=== PATIENT | male | born 1955 | race Caucasian/White ===

== ENCOUNTER 2023-10-16 17:03 | Inpatient (IN) ==
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
[2023-10-16] MEDS: ALBUT/IPRATROP 3MG/0.5MG NEB 3 ML VIAL NEB STA (18:21)
[2023-10-16] MEDS: ACETAMINOPHEN 1,000 MG/100 ML VIAL IV STA (18:21)
[2023-10-16 18:26] LABS: Basophils # (auto) 0.03 K/uL (0.00-0.20); Basophils % (auto) 0.3 %; Eosinophils # (auto) 0.07 K/uL (0.00-0.50); Eosinophils % (auto) 0.7 %; Hematocrit (blood only) 27.3 % (42.0-52.0); Hemoglobin 8.1 g/dl (14.0-18.0); Immature Granulocytes # (auto) 0.03 K/uL (0.01-0.20); Immature Granulocytes % (auto) 0.3 %; Lymphocytes # (auto) 2.26 K/uL (1.20-3.40); Lymphocytes % (auto) 23.9 %; Mean Corpuscular Hemoglobin 29.1 pg (25.0-34.0); Mean Corpuscular Hgb Conc 29.7 g/dL (32.0-36.0); Mean Corpuscular Volume 98.2 fL (80.0-100.0); Mean Platelet Volume 10.3 fL (9.4-12.4); Monocytes # (auto) 0.79 K/uL (0.11-0.59); Monocytes % (auto) 8.4 %; Neutrophils # (auto) 6.26 K/uL (1.40-6.50); Neutrophils % (auto) 66.4 %; Platelet Count 201 K/uL (130-400); RDW Coefficient of Variation 13.2 % (11.5-14.5); RDW Standard Deviation 47.1 fL (36.4-46.3); Red Blood Count 2.78 M/uL (4.70-6.10); White Blood Count 9.44 K/ul (4.8-10.8)
[2023-10-16 18:52] LABS: Appearance Urine Clear (Clear); Bacteria Urine Automated None Seen (None Seen); Bilirubin Urine Negative (Negative); Blood Urine Negative (Negative); Calcium Oxalate Crystals Urine Present (None Prsent); Color Urine Yellow; Epithelial Cell Urine Auto 0-2 /hpf (0-2); Glucose Urine UA Negative (Negative); Ketones Urine Trace (Negative); Leukocyte Esterase Urine Trace (Negative); Mucus Urine Present (None Prsent); Nitrite Urine Negative (Negative); Protein Urine 1+ (Negative); Urobilinogen Urine Negative (Negative); WBC Urine Automated 0-5 /hpf (0-5); pH Urine >= 9.0 (4.5-7.5)
[2023-10-16 18:57] LABS: Albumin Globulin Ratio 1.4 (0.9-2); Albumin Level 3.9 gm/dl (3.4-5.0); Bilirubin,Total 0.4 mg/dl (0.2-1.0); Calcium 9.8 mg/dl (8.6-10.3); Creatinine Clr Calc Pharmacy 68.3 ml/min; Est GFR (African American) 90.5 ml/min; Est GFR (Non-African American) 78.1 ml/min; Globulin 2.7 gm/dl (2.5-4.0); Potassium 4.4 mmol/L (3.5-5.1); Total Protein 6.6 gm/dl (6.0-8.3); Troponin I High Sensitivity 190.2 pg/ml (0-20)
[2023-10-16 18:59] LABS: Prothrombin Time 10.9 Seconds (9.0-12.0)
[2023-10-16 19:26] LABS: Adenovirus PCR Not Detected (NotDetected); Bordetella parapertussis PCR Not Detected (NotDetected); Bordetella pertussis PCR Not Detected (NotDetected); Chlamydia pneumoniae PCR Not Detected (NotDetected); Coronavirus 229E PCR Not Detected (NotDetected); Coronavirus CoV-2 (COVID19)PCR Not Detected (NotDetected); Coronavirus HKU1 PCR Not Detected (NotDetected); Coronavirus NL63 PCR Not Detected (NotDetected); Coronavirus OC43PCR Not Detected (NotDetected); Human Metapneumovirus PCR Not Detected (NotDetected); Influenza A PCR Not Detected (NotDetected); Influenza B PCR Not Detected (NotDetected); Mycoplasma pneumoniae PCR Not Detected (NotDetected); Parainfluenza Virus 1 PCR Not Detected (NotDetected); Parainfluenza Virus 2 PCR Not Detected (NotDetected); Parainfluenza Virus 3 PCR Not Detected (NotDetected); Parainfluenza Virus 4 PCR Not Detected (NotDetected); Respiratory Syncytial VirusPCR Not Detected (NotDetected); Rhinovirus/Enterovirus PCR Not Detected (NotDetected)
--- NOTE | 2023-10-16 19:39 | XRay Report ---
SINGLE VIEW CHEST CLINICAL HISTORY: Dyspnea FINDINGS: 2 AP, portable, upright chest radiographs compare to study dated 05/27/2023. The examination is degraded by portable technique and patient rotation. The heart is enlarged noting atheroscleroti c calcification of the thoracic aorta. Emphysema and chronic interstitial thickening is similar to pr evious. Foci of parenchymal scarring are seen throughout both lungs. Question a nodular opacity at th e right lung base. No airspace consolidation or large pleural effusion is identified. No pneumothorax is seen. The skeletal structures are osteopenic. The bony thorax is grossly intact. IMPRESSION: 1. Cardiomegaly and emphysema with no acute cardiopulmonary abnormality identified. 2. Question a nodular opacity at the right lung base. This may be artifactual. Correlation with a [facility] CT is recommended for further assessment and to exclude underlying pulmonary lesion. ACT 112: Negative or not required by law. Electronically signed by: John Mae M.D. 10/16/2023 7:37 PM
[2023-10-16 19:46] LABS: Base Excess VBG 18.4 mEq/L; HCO3 VBG 48 mmol/L; Oxygen Saturation VBG 60.9 %; PCO2 VBG 79 mmHg (38-50); PO2 VBG 35 mmHg; pH VBG 7.39 (7.36-7.41)
[2023-10-16] MEDS: methylPREDNISolone 125 MG/2 ML VIAL IV STA (20:04)
[2023-10-16] MEDS: ASPIRIN CHEW 324 MG PO STA (20:06)
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
[2023-10-16] MEDS: AZITHROMYCIN 500 MG in DEXTROSE 5% 250 ML IV ONE (21:56)
[2023-10-16] MEDS: Patient's ALLERGY Info needs ENTERED STA (22:00)
[2023-10-16] MEDS: Patient's ALLERGY Info needs ENTERED SCH (22:01)
[2023-10-16] MEDS ORDERED: ACETAMINOPHEN 325 MG TAB PO PRN (22:25)
[2023-10-16] MEDS ORDERED: ONDANSETRON INJ 2 MG/ML 2 ML VIAL IV PRN (22:25)
[2023-10-16] MEDS: guaiFENesin 600 MG TABCR PO SCH (22:44)
[2023-10-16] MEDS: ENOXAPARIN INJ 40 MG/0.4 ML SYR SQ SCH (23:04)
--- NOTE | 2023-10-16 23:57 | CT Scan Report ---
Exam(s): CT CHEST Without Contrast EXAM: CT Chest Without Intravenous Contrast CLINICAL HISTORY: Reason for exam: right lower lobe pathology on CXR. TECHNIQUE: Axial computed tomography images of the chest without intravenous contrast. CTDI is 11.8 mGy and DLP is 438.65 mGy-cm. Automated exposure control was utilized for the study. A dose lowering technique was utilized adhering to the principles of ALARA. COMPARISON: No relevant prior studies available. FINDINGS: Lungs: Mass in the RIGHT lower lobe measures 3 cm. PET/CT scan recommended for further evaluation. Patchy infiltrates in the bilateral upper lobes, concerning for pneumonia. Pleural space: Unremarkable. No pneumothorax. No significant effusion. Heart: Unremarkable. No cardiomegaly. No significant pericardial effusion. No significant coronary artery calcifications. Bones/joints: Degenerative changes of the spine. No acute fracture. No dislocation. Soft tissues: Unremarkable. Vasculature: Atherosclerotic changes of the aorta. No thoracic aortic aneurysm. Lymph nodes: Unremarkable. No enlarged lymph nodes. Kidneys and ureters: Multiple renal cysts. IMPRESSION: 1. Mass in the RIGHT lower lobe measures 3 cm. PET/CT scan recommended for further evaluation. Lung cancer not excluded. 2. Patchy infiltrates in the bilateral upper lobes, concerning for pneumonia. Electronically signed by: Simeon Mendieta MD 10/16/23 23:56 PM
[2023-10-17] MEDS: CEFEPIME 2,000 MG in SYRINGE 0 ML IV SCH (01:20)
[2023-10-17] MEDS: CEFEPIME 2,000 MG/20 ML VIAL ONE (01:21)
[2023-10-17] MEDS ORDERED: methylPREDNISolone 1000 MG/16 ML IV SCH (04:00)
[2023-10-17] MEDS: methylPREDNISolone 125 MG/2 ML VIAL ONE (04:45)
[2023-10-17] MEDS: methylPREDNISolone 40 MG in SYRINGE 0 ML IV SCH (05:38)
[2023-10-17 06:15] LABS: Basophils # (auto) 0.01 K/uL (0.00-0.20); Basophils % (auto) 0.1 %; Hematocrit (blood only) 27.9 % (42.0-52.0); Hemoglobin 8.5 g/dl (14.0-18.0); Immature Granulocytes # (auto) 0.04 K/uL (0.01-0.20); Immature Granulocytes % (auto) 0.6 %; Lymphocytes # (auto) 0.95 K/uL (1.20-3.40); Lymphocytes % (auto) 13.2 %; Mean Corpuscular Hemoglobin 29.7 pg (25.0-34.0); Mean Corpuscular Hgb Conc 30.5 g/dL (32.0-36.0); Mean Corpuscular Volume 97.6 fL (80.0-100.0); Mean Platelet Volume 11.1 fL (9.4-12.4); Monocytes # (auto) 0.04 K/uL (0.11-0.59); Monocytes % (auto) 0.6 %; Neutrophils # (auto) 6.14 K/uL (1.40-6.50); Neutrophils % (auto) 85.5 %; Platelet Count 221 K/uL (130-400); RDW Standard Deviation 46.3 fL (36.4-46.3); Red Blood Count 2.86 M/uL (4.70-6.10); White Blood Count 7.18 K/ul (4.8-10.8)
[2023-10-17 06:45] LABS: Albumin Globulin Ratio 1.4 (0.9-2); Albumin Level 3.8 gm/dl (3.4-5.0); BUN Creatinine Ratio 21.1 (10-20); Bilirubin,Total 0.4 mg/dl (0.2-1.0); Calcium 9.4 mg/dl (8.6-10.3); Creatinine Clr Calc Pharmacy 75.9 ml/min; Est GFR (African American) 102.8 ml/min; Est GFR (Non-African American) 88.7 ml/min; Globulin 2.8 gm/dl (2.5-4.0); Potassium 4.8 mmol/L (3.5-5.1); Total Protein 6.6 gm/dl (6.0-8.3); Troponin I High Sensitivity 106.8 pg/ml (0-20)
[2023-10-17] MEDS: ALBUT/IPRATROP 3MG/0.5MG NEB 3 ML VIAL NEB SCH (07:01)
--- NOTE | 2023-10-17 07:41 | Electrocardiogram Report ---
Test Reason : Blood Pressure : */* mmHG Vent. Rate : 78 BPM Atrial Rate : 78 BPM P-R Int : 156 ms QRS Dur : 92 ms QT Int : 356 ms P-R-T Axes : 68 93 54 degrees QTcB Int : 405 ms Sinus rhythm with marked sinus arrhythmia Rightward axis Borderline ECG When compared with ECG of 27-May-2023 22:26, No significant change was found Confirmed by Rey Bales ([id number]) on 10/17/2023 7:41:17 AM Referred By: REFERRED SELF Confirmed By: Rey Bales
[2023-10-17] MEDS: NICOTINE 21 MG/24 HR TDSY TD SCH (08:40)
[2023-10-17] MEDS: ATORVASTATIN 10 MG TAB PO SCH (08:42)
[2023-10-17] MEDS: busPIRone 15 MG TAB PO SCH (08:43)
--- NOTE | 2023-10-17 09:00 | Hospitalist Progress Note ---
Date of Service October 17, 2023 Assessment & Plan (1) Acute on chronic respiratory failure with hypoxia and hypercapnia: (2) Acute exacerbation of chronic obstructive pulmonary disease: (3) Right lower lobe lung mass: (4) Non-ST elevation [place] (NSTEMI): (5) Tobacco abuse: (6) Hyperlipidemia: (7) Bipolar disorder: (8) Dependence on supplemental oxygen: (9) Depression with anxiety: (10) Bilateral pneumonia: Plan #Acute on chronic respiratory failure with hypoxia #COPD exacerbation #bilateral upper lobe pneumonia - Given methylprednisolone 80 mg IV in the ED, currently on Methylprednisolone 40 mg IV every 8 hours - Duonebs every 4 hours while awake and every 2 hours when necessary, breo ordered - Cefepime 2 g IV every 12 hours, Azithromycin 500 mg IV every 24 hours - Guaifenesin extended release 1200 mg p.o. twice daily - Nasal cannula oxygen, titrate to keep pulse ox around 90%. Patient with baseline 4 L requirement - MRSA swab #Right lower lobe lung mass 3 cm- - Primary consideration is primary lung adenocarcinoma - Radiology recommends PET/CT scan for further evaluation - Consult oncology #NSTEMI - The patient will be admitted to telemetry for serial cardiac enzymes, serial EKG's, cardiac rhythm monitoring and a 2-D echocardiogram with Dopplers. - Troponin 190.2 with follow-up 165.3, then 145.0 - Likely type II supply/demand mismatch #Bipolar disorder #anxiety with depression- - Continue BuSpar, lorazepam and quetiapine Admission and Anticipated Discharge Date Admission Date: October 16, 2023 Subjective No acute events overnight Currently states that he is feeling better. He still has respiratory distress, but states it is improving Review of Systems Review of Systems: comprehensive ROS completed Physical Exam Physical Exam: Gen: in bed, no acute distress HEENT: NC/AT, MMM CVS: s1s2 nl, RRR Lungs: mild - mod respiratory distress, expiratory wheezing Abd: soft, NT, nl BS Ext: no edema Psych: pleasant, communicating appropriately Results & Data Results & Data Vital Signs (Past 12 Hours) Vital Signs Temp Pulse Pulse Resp BP BP Pulse Ox 10/17/23 08:52 10/17/23 08:03 78 15 10/17/23 07:30 70 15 100 10/17/23 07:03 80 10/17/23 07:01 75 22 94 10/17/23 07:00 77 16 90 10/17/23 06:36 74 19 100 10/17/23 06:36 124/59 L 10/17/23 06:36 78 20 124/58 L 100 10/17/23 06:03 70 23 100 10/17/23 06:00 138/112 H 10/17/23 05:54 78 33 H 100 10/17/23 05:42 75 12 82 L 10/17/23 05:30 74 19 98 10/17/23 05:24 68 13 97 10/17/23 05:18 68 14 97 10/17/23 05:00 69 14 100 10/17/23 05:00 142/62 H 10/17/23 05:00 142/62 H 10/17/23 05:00 142/62 H 10/17/23 05:00 142/62 H 10/17/23 04:51 65 18 93 10/17/23 04:21 77 22 98 10/17/23 04:03 75 14 100 10/17/23 04:00 129/41 L 10/17/23 04:00 129/41 L 10/17/23 03:51 77 21 97 10/17/23 03:48 70 24 99 10/17/23 03:30 70 17 98 10/17/23 03:27 74 24 99 10/17/23 03:01 137/36 L 10/17/23 03:01 137/36 L 10/17/23 03:01 137/36 L 10/17/23 03:01 137/36 L 10/17/23 03:00 75 21 94 10/17/23 02:51 70 15 98 10/17/23 02:47 72 17 142/85 H 100 10/17/23 02:45 10/17/23 02:45 37.1 C 70 142/85 H 99 10/16/23 23:51 72 20 97 10/16/23 23:20 71 10/16/23 22:25 10/16/23 22:00 70 22 127/64 95 10/16/23 21:22 77 Pulse Ox O2 Del Method O2 Del Method O2 Flow Rate O2 Flow Rate 10/17/23 08:52 Nasal Cannula 2 10/17/23 08:03 10/17/23 07:30 10/17/23 07:03 10/17/23 07:01 Nasal Cannula 4 10/17/23 07:00 10/17/23 06:36 10/17/23 06:36 10/17/23 06:36 Nasal Cannula 4 10/17/23 06:03 10/17/23 06:00 10/17/23 05:54 10/17/23 05:42 10/17/23 05:30 10/17/23 05:24 10/17/23 05:18 10/17/23 05:00 10/17/23 05:00 10/17/23 05:00 10/17/23 05:00 10/17/23 05:00 10/17/23 04:51 10/17/23 04:21 10/17/23 04:03 10/17/23 04:00 10/17/23 04:00 10/17/23 03:51 10/17/23 03:48 10/17/23 03:30 10/17/23 03:27 10/17/23 03:01 10/17/23 03:01 10/17/23 03:01 10/17/23 03:01 10/17/23 03:00 10/17/23 02:51 10/17/23 02:47 Nasal Cannula 4 10/17/23 02:45 Nasal Cannula 4 10/17/23 02:45 Nasal Cannula 4 10/16/23 23:51 10/16/23 23:20 10/16/23 22:25 94 Nasal Cannula 4 10/16/23 22:00 Nasal Cannula 4 10/16/23 21:22 PG Care Time/CCT Total # of Minutes Spent Total Time Spent with Patient: Total time spent is greater than 50% in coordination of care (as documented) at patient's floor/unit and/or counseling patient: Coding Level of Care Code 27114 SUB INP/OBS CARE 2/35MIN Diagnoses Acute on chronic respiratory failure with hypoxia and hypercapnia J96.21; J96.22 Acute exacerbation of chronic obstructive pulmonary disease J44.1 Right lower lobe lung mass R91.8 Non-ST elevation [place] (NSTEMI) I21.4 Tobacco abuse Z72.0 Hyperlipidemia E78.5 Bipolar disorder F31.9 Dependence on supplemental oxygen Z99.81 Depression with anxiety F41.8 Bilateral pneumonia J18.9
--- NOTE | 2023-10-17 09:10 | XCELERA ---
[id number]
[2023-10-17] MEDS: FLUTICASONE/VILANTEROL 100/25MCG 14 PUFFS/INHALER INH SCH (13:24)
[2023-10-17] MEDS: LORazepam 0.5 MG TAB PO PRN (13:27)
[2023-10-17] MEDS: QUEtiapine FUMARATE 200 MG TAB PO SCH (21:11)
[2023-10-17] MEDS: AZITHROMYCIN 500 MG in DEXTROSE 5% 250 ML IV SCH (21:12)
[2023-10-17] MEDS: QUEtiapine FUMARATE 100 MG TABLET PO SCH (22:53)
[2023-10-17] MEDS ORDERED: ALBUT/IPRATROP 3MG/0.5MG NEB 3 ML VIAL NEB PRN (23:12)
[2023-10-18 04:58] LABS: Hematocrit (blood only) 25.4 % (42.0-52.0); Hemoglobin 8.1 g/dl (14.0-18.0); Immature Granulocytes # (auto) 0.02 K/uL (0.01-0.20); Immature Granulocytes % (auto) 0.3 %; Lymphocytes # (auto) 1.19 K/uL (1.20-3.40); Lymphocytes % (auto) 16.8 %; Mean Corpuscular Hemoglobin 29.9 pg (25.0-34.0); Mean Corpuscular Hgb Conc 31.9 g/dL (32.0-36.0); Mean Corpuscular Volume 93.7 fL (80.0-100.0); Mean Platelet Volume 10.8 fL (9.4-12.4); Monocytes # (auto) 0.27 K/uL (0.11-0.59); Monocytes % (auto) 3.8 %; Neutrophils # (auto) 5.59 K/uL (1.40-6.50); Neutrophils % (auto) 79.1 %; Platelet Count 205 K/uL (130-400); RDW Coefficient of Variation 13.2 % (11.5-14.5); RDW Standard Deviation 44.8 fL (36.4-46.3); Red Blood Count 2.71 M/uL (4.70-6.10); White Blood Count 7.07 K/ul (4.8-10.8)
[2023-10-18 05:18] LABS: Albumin Globulin Ratio 1.4 (0.9-2); Albumin Level 3.6 gm/dl (3.4-5.0); BUN Creatinine Ratio 37.8 (10-20); Bilirubin,Total 0.3 mg/dl (0.2-1.0); Calcium 9.3 mg/dl (8.6-10.3); Creatinine Clr Calc Pharmacy 92.3 ml/min; Est GFR (African American) 111.4 ml/min; Est GFR (Non-African American) 96.1 ml/min; Globulin 2.5 gm/dl (2.5-4.0); Magnesium 2.1 mg/dl (1.7-2.4); Potassium 4.3 mmol/L (3.5-5.1); Total Protein 6.1 gm/dl (6.0-8.3)
--- NOTE | 2023-10-18 07:17 | Hospitalist Progress Note ---
Date of Service October 18, 2023 Assessment & Plan (1) Acute on chronic respiratory failure with hypoxia and hypercapnia: (2) Acute exacerbation of chronic obstructive pulmonary disease: (3) Right lower lobe lung mass: (4) Non-ST elevation [place] (NSTEMI): (5) Tobacco abuse: (6) Hyperlipidemia: (7) Bipolar disorder: (8) Dependence on supplemental oxygen: (9) Depression with anxiety: (10) Bilateral pneumonia: Plan #Acute on chronic respiratory failure with hypoxia #COPD exacerbation #bilateral upper lobe pneumonia - Given methylprednisolone 80 mg IV in the ED, currently on Methylprednisolone 40 mg IV every 8 hours, cont at this time - Duonebs every 4 hours while awake and every 2 hours when necessary, breo ordered - Cefepime 2 g IV every 8 hours, Azithromycin 500 mg IV every 24 hours, Day 3 - Guaifenesin extended release 1200 mg p.o. twice daily - Nasal cannula oxygen, titrate to keep pulse ox around 90%. Patient with baseline 4 L requirement - MRSA negative #Right lower lobe lung mass 3 cm- - Primary consideration is primary lung adenocarcinoma - Radiology recommends PET/CT scan for further evaluation - Consult oncology #NSTEMI - The patient will be admitted to telemetry for serial cardiac enzymes, serial EKG's, cardiac rhythm monitoring - Troponin 190.2 with follow-up 165.3, then 145.0 - ECHO showing nl LV size, mild concentric LV hypertrophy, EF: 55-60%, grade I DD - Likely type II supply/demand mismatch #Bipolar disorder #anxiety with depression- - Continue BuSpar, lorazepam and quetiapine #Overgrown toenails - podiatry consulted #Poor access to care - per report, pt has difficulty getting to appointments as outpatient. Bedside RN initiated CM support to set up outpatient support for patient. [facility] #DVT ppx: lovenox Admission and Anticipated Discharge Date Admission Date: October 16, 2023 Subjective No acute events overnight Looks much improved today compared to yesterday though still has some conversational dyspnea and pursed lip breathing Review of Systems Review of Systems: comprehensive ROS completed Physical Exam Physical Exam: Gen: in bed, no acute distress HEENT: NC/AT, MMM CVS: s1s2 nl, RRR Lungs: mild respiratory distress, diminished breath sounds, scattered expiratory wheezing (improved from yesterday) Abd: soft, NT, nl BS Ext: no edema, overgrown toenails (few missing currently) Psych: pleasant, communicating appropriately Results & Data Results & Data Vital Signs (Past 12 Hours) Vital Signs Temp Pulse Pulse Resp BP Pulse Ox Pulse Ox 10/18/23 07:10 67 18 100 10/18/23 04:50 37.0 C 77 21 131/34 L 98 10/18/23 00:01 75 10/17/23 23:13 36.7 C 69 21 157/56 H 100 10/17/23 22:25 100 10/17/23 19:46 68 16 95 10/17/23 19:29 10/17/23 19:28 37.3 C 73 22 138/51 L 96 O2 Del Method O2 Del Method O2 Flow Rate O2 Flow Rate 10/18/23 07:10 Nasal Cannula 2 10/18/23 04:50 Nasal Cannula 2 10/18/23 00:01 10/17/23 23:13 Nasal Cannula 4 10/17/23 22:25 Nasal Cannula 4 10/17/23 19:46 Nasal Cannula 2 10/17/23 19:29 Nasal Cannula 2 10/17/23 19:28 Nasal Cannula 2 PG Care Time/CCT Total # of Minutes Spent Total Time Spent with Patient: Total time spent is greater than 50% in coordination of care (as documented) at patient's floor/unit and/or counseling patient: Coding Level of Care Code 48866 SUB INP/OBS CARE 2/35MIN Diagnoses Acute on chronic respiratory failure with hypoxia and hypercapnia J96.21; J96.22 Acute exacerbation of chronic obstructive pulmonary disease J44.1 Right lower lobe lung mass R91.8 Non-ST elevation ND (NSTEMI) I21.4 Tobacco abuse Z72.0 Hyperlipidemia E78.5 Bipolar disorder F31.9 Dependence on supplemental oxygen Z99.81 Depression with anxiety F41.8 Bilateral pneumonia J18.9
--- NOTE | 2023-10-18 07:19 | Oncology Consultation ---
Date of Consultation October 18, 2023 Assessment & Plan (1) Right lower lobe lung mass: Had a lengthy discussion with the patient, discussed the possible etiologies behind his lung mass. My first recommendation would be a biopsy of this mass which could be done endobronchially. Keeping this in mind I request pulmonary referral for bronchoscopy and endobronchial biopsy. Once we have the results of the endobronchial biopsy we will understand the etiology behind this diagnosis and the potential treatment recommendations. PET scan can be ordered on an outpatient basis. I recommend biopsy which can be done endobronchially. Plan Thank you for this interesting oncological consult. A total of 60 minutes were spent counseling, coordination of care and review of prior records. History of Present Illness Reason for Consultation: Lung mass Attending Physician: Michell Brian MD History of Present Illness the patient is a very pleasant 68-year-old man who came to [facility] on 10/16/2023 with sudden onset shortness of breath and dyspnea on exertion. He has a history of COPD and is on 4 L oxygen. After he came to the emergency department he had a CT scan of the chest on 10/16/2023 which revealed mass in the right lower lobe measuring 3 cm. There were patchy infiltrates in bilateral upper lobes. medical oncology has been consulted to assist in management of this patient with right lower lobe mass. During my examination the patient was in the ICU bed, he was lying comfortably and he was on oxygen. No new symptoms at this point. No fever or chills. No nausea vomiting. Allergies Allergy/AdvReac Type Severity Reaction Status Date / Time No Known Allergies Allergy Verified 10/16/23 21:32 Home Medications Medication Instructions Recorded Confirmed Type albuterol sulfate 90 mcg/actuation 2 puff inhalation Q6H PRN 06/19/21 10/16/23 History aerosol inhaler Shortness Of Breath Or Wheezing quetiapine 400 mg tablet 200 mg PO HS 06/19/21 10/16/23 History albuterol sulfate 2.5 mg/3 mL 2.5 mg inhalation QID PRN 05/27/23 10/16/23 History (0.083 %) solution for nebulization Shortness Of Breath Or Wheezing atorvastatin 10 mg tablet (Lipitor) 10 mg PO DAILY 05/27/23 10/16/23 History buspirone 15 mg tablet 15 mg PO BID 05/27/23 10/16/23 History fluticasone 500 mcg-salmeterol 50 1 inh inhalation BID 05/27/23 10/16/23 History mcg/dose blistr powdr for inhalation (Advair Diskus) lanolin alcohols-mineral 1 applic topical BID PRN Dry Skin 05/27/23 10/16/23 History oil-w.petrolatum-ceresin topical cream (Eucerin topical cream) lorazepam 0.5 mg tablet 0.5 mg PO BID PRN Anxiety 05/27/23 10/16/23 History tiotropium bromide 2.5 2 puff inhalation DAILY 05/27/23 10/16/23 History mcg/actuation mist for inhalation (Spiriva Respimat) Patient History Medical History Vitamin D deficiency Ventricular premature depolarization Unspecified mood [affective] disorder Nicotine dependence Insomnia Emphysema lung Dependence on supplemental oxygen Anxiety Social History Smoking Status: Current every day smoker Tobacco Type: Cigarettes Hx Alcohol Use: No Hx Substance Use: No Preferred Language: Grenadian Communication Ability: Effective Supervisor Production Required: No Beliefs That Will Affect Care: None Current Living Situation: Alone Current Living Situation Comment: Lives at [facility] Feels Safe at Home: Yes Assistive Devices: Cane, Oxygen - Continuous and Walker Review of Systems Review of Systems: All systems reviewed & are unremarkable except as noted in HPI & below Constitutional: as per Subjective / HPI Eyes: as per Subjective / HPI Ear, Nose, Mouth, Throat: as per Subjective / HPI Respiratory: as per Subjective / HPI Cardiovascular: as per Subjective / HPI Gastrointestinal: as per Subjective / HPI Genitourinary: + as per Subjective / HPI Musculoskeletal: as per Subjective / HPI Integumentary: as per Subjective / HPI Neurologic: as per Subjective / HPI Psychiatric: as per Subjective / HPI Endocrine: as per Subjective / HPI Physical Exam Constitutional: WD/WN, vitals as above Eyes: PERRL, conjunctivae normal, anicteric sclerae ENMT: external ear and nose normal, oropharynx normal Neck: trachea midline, no thyromegaly Respiratory: normal respiratory effort, lungs clear to auscultation Cardiovascular: RRR, no murmur, no edema Gastrointestinal (Abdomen): normal bowel sounds, soft, nontender, no hepatosplenomegaly Musculoskeletal: no cyanosis or clubbing, extremities motor strength 5/5 Skin: no rashes, warm and dry Neurologic: patellar DTR's 2+ bilat, sensation intact Psychiatric: A+Ox3, euthymic affect Genitourinary: no testicular masses, no penis abnormality Lymphatic: no cervical or axillary lymphadenopathy Results & Data Vital Signs (Past 12 Hours) Vital Signs Temp Pulse Pulse Resp BP Pulse Ox Pulse Ox 10/18/23 07:10 67 18 100 10/18/23 04:50 37.0 C 77 21 131/34 L 98 10/18/23 00:01 75 10/17/23 23:13 36.7 C 69 21 157/56 H 100 10/17/23 22:25 100 10/17/23 19:46 68 16 95 10/17/23 19:29 10/17/23 19:28 37.3 C 73 22 138/51 L 96 O2 Del Method O2 Del Method O2 Flow Rate O2 Flow Rate 10/18/23 07:10 Nasal Cannula 2 10/18/23 04:50 Nasal Cannula 2 10/18/23 00:01 10/17/23 23:13 Nasal Cannula 4 10/17/23 22:25 Nasal Cannula 4 10/17/23 19:46 Nasal Cannula 2 10/17/23 19:29 Nasal Cannula 2 10/17/23 19:28 Nasal Cannula 2
--- NOTE | 2023-10-18 07:37 | Electrocardiogram Report ---
Test Reason : Blood Pressure : */* mmHG Vent. Rate : 74 BPM Atrial Rate : 74 BPM P-R Int : 160 ms QRS Dur : 102 ms QT Int : 386 ms P-R-T Axes : 93 93 49 degrees QTcB Int : 428 ms Sinus rhythm with Premature atrial complexes Rightward axis Abnormal ECG When compared with ECG of 16-Oct-2023 17:13, Premature atrial complexes are now Present Confirmed by Rey Bales ([id number] on 10/18/2023 7:37:32 AM Referred By: REFERRED SELF Confirmed By: Rey Bales
[2023-10-18] MEDS: LORazepam 0.5 MG TAB PO STA (22:50)
[2023-10-19 06:44] LABS: Albumin Globulin Ratio 1.4 (0.9-2); Albumin Level 3.6 gm/dl (3.4-5.0); BUN Creatinine Ratio 35.5 (10-20); Bilirubin,Total 0.3 mg/dl (0.2-1.0); Creatinine Clr Calc Pharmacy 72.8 ml/min; Est GFR (African American) 98.8 ml/min; Est GFR (Non-African American) 85.2 ml/min; Globulin 2.6 gm/dl (2.5-4.0); Hematocrit (blood only) 27.2 % (42.0-52.0); Hemoglobin 8.4 g/dl (14.0-18.0); Immature Granulocytes # (auto) 0.03 K/uL (0.01-0.20); Immature Granulocytes % (auto) 0.4 %; Lymphocytes # (auto) 0.81 K/uL (1.20-3.40); Lymphocytes % (auto) 11.2 %; Magnesium 2.3 mg/dl (1.7-2.4); Mean Corpuscular Hemoglobin 29.8 pg (25.0-34.0); Mean Corpuscular Hgb Conc 30.9 g/dL (32.0-36.0); Mean Corpuscular Volume 96.5 fL (80.0-100.0); Mean Platelet Volume 11.3 fL (9.4-12.4); Monocytes # (auto) 0.26 K/uL (0.11-0.59); Monocytes % (auto) 3.6 %; Neutrophils # (auto) 6.15 K/uL (1.40-6.50); Neutrophils % (auto) 84.8 %; Platelet Count 219 K/uL (130-400); Potassium 4.3 mmol/L (3.5-5.1); RDW Coefficient of Variation 13.1 % (11.5-14.5); RDW Standard Deviation 46.3 fL (36.4-46.3); Red Blood Count 2.82 M/uL (4.70-6.10); Total Protein 6.2 gm/dl (6.0-8.3); White Blood Count 7.25 K/ul (4.8-10.8)
--- NOTE | 2023-10-19 15:34 | Hospitalist Progress Note ---
Date of Service October 19, 2023 Assessment & Plan (1) Acute on chronic respiratory failure with hypoxia and hypercapnia: (2) Acute exacerbation of chronic obstructive pulmonary disease: (3) Right lower lobe lung mass: (4) Non-ST elevation [place] (NSTEMI): (5) Tobacco abuse: (6) Hyperlipidemia: (7) Bipolar disorder: (8) Dependence on supplemental oxygen: (9) Depression with anxiety: (10) Bilateral pneumonia: Plan #Acute on chronic respiratory failure with hypoxia #COPD exacerbation #bilateral upper lobe pneumonia - Given methylprednisolone 80 mg IV in the ED, currently on Methylprednisolone 40 mg IV every 8 hours, cont at this time -will transition to daily after receviing 2 doses on 10/18 - Duonebs every 4 hours while awake and every 2 hours when necessary, breo ordered - Cefepime 2 g IV every 8 hours, Azithromycin 500 mg IV every 24 hours, Day 3 - Guaifenesin extended release 1200 mg p.o. twice daily - Nasal cannula oxygen, titrate to keep pulse ox around 90%. Patient with baseline 4 L requirement - MRSA negative #Right lower lobe lung mass 3 cm- - Primary consideration is primary lung adenocarcinoma - Radiology recommends PET/CT scan for further evaluation - Consult oncology: awaiting input from oncology. #NSTEMI - The patient will be admitted to telemetry for serial cardiac enzymes, serial EKG's, cardiac rhythm monitoring - Troponin 190.2 with follow-up 165.3, then 145.0 - ECHO showing nl LV size, mild concentric LV hypertrophy, EF: 55-60%, grade I DD - Likely type II supply/demand mismatch #Bipolar disorder #anxiety with depression- - Continue BuSpar, lorazepam and quetiapine #Overgrown toenails - podiatry consulted #Poor access to care - per report, pt has difficulty getting to appointments as outpatient. Bedside RN initiated CM support to set up outpatient support for patient. [facility] #DVT ppx: lovenox Admission and Anticipated Discharge Date Admission Date: October 16, 2023 Subjective Patient reports he feels close to his baseline. Patient normally takes about 4 liters of oxygen at rest. He states he normally is wheezing. Review of Systems Review of Systems: All systems reviewed & are unremarkable except as noted in HPI & below Physical Exam Physical Exam: Gen: in bed, no acute distress HEENT: NC/AT, MMM CVS: s1s2 nl, RRR Lungs: mild respiratory distress, diminished breath sounds, scattered expiratory wheezing Abd: soft, NT, nl BS Ext: no edema, overgrown toenails (few missing currently) Psych: pleasant, communicating appropriately Results & Data Results & Data Vital Signs (Past 12 Hours) Vital Signs Temp Pulse Pulse Resp BP Pulse Ox O2 Del Method 10/19/23 14:15 72 10/19/23 14:10 76 22 93 Nasal Cannula 10/19/23 11:15 36.6 C 69 20 139/63 95 Nasal Cannula 10/19/23 11:13 64 20 98 Nasal Cannula 10/19/23 07:54 Nasal Cannula 10/19/23 06:59 60 22 100 Nasal Cannula 10/19/23 06:49 36.7 C 66 18 147/64 H 100 Nasal Cannula 10/19/23 03:48 36.5 C 62 16 136/57 L 100 Room Air O2 Flow Rate 10/19/23 14:15 10/19/23 14:10 3 10/19/23 11:15 4 10/19/23 11:13 4 10/19/23 07:54 3 10/19/23 06:59 6 10/19/23 06:49 6 10/19/23 03:48 PG Care Time/CCT Total # of Minutes Spent Total Time Spent with Patient: Total time spent is greater than 50% in coordination of care (as documented) at patient's floor/unit and/or counseling patient: Coding Level of Care Code 01555 SUB INP/OBS CARE 2/35MIN Diagnoses Acute on chronic respiratory failure with hypoxia and hypercapnia J96.21; J96.22 Acute exacerbation of chronic obstructive pulmonary disease J44.1 Right lower lobe lung mass R91.8 Non-ST elevation [place] (NSTEMI) I21.4 Tobacco abuse Z72.0 Hyperlipidemia E78.5 Bipolar disorder F31.9 Dependence on supplemental oxygen Z99.81 Depression with anxiety F41.8 Bilateral pneumonia J18.9
--- NOTE | 2023-10-19 21:39 | Electrocardiogram Report ---
Test Reason : Blood Pressure : */* mmHG Vent. Rate : 66 BPM Atrial Rate : 66 BPM P-R Int : 144 ms QRS Dur : 100 ms QT Int : 396 ms P-R-T Axes : 77 92 51 degrees QTcB Int : 415 ms Sinus rhythm with Premature atrial complexes Rightward axis Borderline ECG When compared with ECG of 18-Oct-2023 04:45, No significant change was found Confirmed by Paul Andersen ([id number]) on 10/19/2023 9:39:19 PM Referred By: REFERRED SELF Confirmed By: Paul Andersen
[2023-10-19] MEDS: METOPROLOL TARTRATE 1 MG/ML VIAL IV STA (23:37)
[2023-10-19] MEDS: METOPROLOL TARTRATE 1 MG/ML VIAL IV ONE (23:48)
[2023-10-20] MEDS: LACTATED RINGER'S 500 ML IV ONE ×2 (00:37→01:50)
--- NOTE | 2023-10-20 03:01 | Communication Note ---
Date of Service: October 20, 2023 Nursing reported patient flipped to A-fib at 1822 and started to get tachycardic in the [id number]. EKG obtained showing A-fib with RVR. Blood pressure 103/54. Did evaluate the patient bedside but he was sleeping comfortably. Given 5 mg of Lopressor with mild rate control. Gave 1 L LR bolus which improved patient's tachycardia, however patient remained in A-fib. This is new onset as previous EKGs did not show any atrial fibrillation. Will switch Lovenox dosing to therapeutic. Will continue to monitor on telemetry overnight. Refer to day team for further workup of new onset atrial fibrillation.
[2023-10-20 07:35] LABS: Hemoglobin 8.6 g/dl (14.0-18.0); Mean Corpuscular Hgb Conc 31.9 g/dL (32.0-36.0); Mean Corpuscular Volume 94.1 fL (80.0-100.0); Mean Platelet Volume 11.2 fL (9.4-12.4); Platelet Count 185 K/uL (130-400); RDW Coefficient of Variation 13.1 % (11.5-14.5); RDW Standard Deviation 45.1 fL (36.4-46.3); Red Blood Count 2.87 M/uL (4.70-6.10); White Blood Count 8.63 K/ul (4.8-10.8)
[2023-10-20 07:52] LABS: BUN Creatinine Ratio 34.5 (10-20); C Reactive Protein 0.62 mg/dl (0-0.5); Calcium 8.5 mg/dl (8.6-10.3); Est GFR (African American) 105.7 ml/min; Est GFR (Non-African American) 91.2 ml/min; Magnesium 2.3 mg/dl (1.7-2.4); Phosphorus 2.5 mg/dl (2.5-4.9); Potassium 4.4 mmol/L (3.5-5.1)
[2023-10-20] MEDS: ENOXAPARIN 80 MG/0.8 ML SYR SQ SCH (09:31)
[2023-10-20] MEDS: methylPREDNISolone 40 MG in SYRINGE 0 ML IV SCH (09:31)
--- NOTE | 2023-10-20 10:45 | Pulmonary Consultation ---
Date of Consultation October 20, 2023 Assessment & Plan (1) Right lower lobe lung mass: (2) Bilateral pneumonia: (3) Acute exacerbation of chronic obstructive pulmonary disease: Plan Pression: 68-year-old male with COPD (severity uncertain as he has not completed PFTs as ordered) as well as findings of a 3 cm right lower lobe lung mass of unclear chronicity. Recommendations: 1. Lung mass: No prior films to document temporal stability. Findings certainly concerning for malignancy given the patient's tobacco history. Recommend proceeding with a PET scan which can only be performed in the outpatient setting. This will identify metabolic active and the primary lesion as well as other potential foci of uptake. Will defer bronchoscopy until the PET scan can be completed. The patient will need case management to assist with follow-up given his history of medical noncompliance and poor generalized health as well as difficulty with follow-up. 2. Given the patient's current pneumonia as well as atrial fibrillation with rapid ventricular response and full anticoagulation, would defer endoscopic procedures this hospitalization. See comments above. 3. Acute exacerbation of COPD: Currently on methylprednisolone. Okay to transition to oral prednisone at 40 mg a day for 5 days. Cefepime can be de- escalated to oral Augmentin and azithromycin can be transitioned to oral. 4. Smoking cessation was recommended to the patient. It is unlikely he will comply. I would be happy to see this patient back in the pulmonary clinic within the next 1 to 2 weeks to review his PET scan. Will arrange for biopsy at that time if appropriate. Thanks for the opportunity participating the care of this patient. Feel free to contact us with questions or concerns. Pulmonary will sign off at this time. History of Present Illness Attending Physician: Franklin Padron History of Present Illness Asked by hospitalist to evaluate this patient with a pulmonary nodule and COPD. History is obtained from discussion with the patient as well as review the electronic medical record. The patient is a 68-year-old male who I evaluated in the pulmonary clinic about 3 to 4 years ago. He was lost to follow-up. He was initially referred due to hypoxemic respiratory failure and COPD. He unfortunately has continued his tobacco habit. Pulmonary function test were ordered but not completed. The patient states that he has been compliant with his Wixela and Spiriva as well as using albuterol on an as-needed basis. He presented to the emergency room with complaints of dyspnea on exertion. Apparently the patient ran out of his home oxygen which she currently uses at 4 L/min which may have contributed to some of his symptoms. The patient does not report any hemoptysis. He is unclear whether he has had prior imaging of his chest performed. He has not had fevers chills or night sweats but does endorse about a 20 to 25 pound unintentional weight loss over the last for 5 months. He is generally disheveled and in poor condition and apparently has issues with access to healthcare. Part of his workup he had a CT scan performed which revealed a pulmonary nodule as well as multifocal airspace opacities. Has been initiated on antibiotics. Oncology consultation was obtained and they recommended tissue diagnosis of the nodule. Allergies Allergy/AdvReac Type Severity Reaction Status Date / Time No Known Allergies Allergy Verified 10/16/23 21:32 Home Medications Medication Instructions Recorded Confirmed Type albuterol sulfate 90 mcg/actuation 2 puff inhalation Q6H PRN 06/19/21 10/16/23 History aerosol inhaler Shortness Of Breath Or Wheezing quetiapine 400 mg tablet 200 mg PO HS 06/19/21 10/16/23 History albuterol sulfate 2.5 mg/3 mL 2.5 mg inhalation QID PRN 05/27/23 10/16/23 Hi story (0.083 %) solution for nebulization Shortness Of Breath Or Wheezing atorvastatin 10 mg tablet (Lipitor) 10 mg PO DAILY 05/27/23 10/16/23 History buspirone 15 mg tablet 15 mg PO BID 05/27/23 10/16/23 History fluticasone 500 mcg-salmeterol 50 1 inh inhalation BID 05/27/23 10/16/23 History mcg/dose blistr powdr for inhalation (Advair Diskus) lanolin alcohols-mineral 1 applic topical BID PRN Dry Skin 05/27/23 10/16/23 History oil-w.petrolatum-ceresin topical cream (Eucerin topical cream) lorazepam 0.5 mg tablet 0.5 mg PO BID PRN Anxiety 05/27/23 10/16/23 History tiotropium bromide 2.5 2 puff inhalation DAILY 05/27/23 10/16/23 History mcg/actuation mist for inhalation (Spiriva Respimat) Patient History Medical History Vitamin D deficiency Ventricular premature depolarization Unspecified mood [affective] disorder Nicotine dependence Insomnia Emphysema lung Dependence on supplemental oxygen Anxiety Social History Smoking Status: Current every day smoker Tobacco Type: Cigarettes Hx Alcohol Use: No Hx Substance Use: No Preferred Language: Faroese Communication Ability: Effective Distribution Operations Manager Required: No Beliefs That Will Affect Care: None Current Living Situation: Alone Current Living Situation Comment: Lives at [facility] Feels Safe at Home: Yes Assistive Devices: Cane, Oxygen - Continuous and Walker Review of Systems Review of Systems: Please refer to admission H&P. No additions or deletions Physical Exam Constitutional: + disheveled; not in distress Patient seen generally poor condition Neck: trachea midline, no thyromegaly Respiratory: no respiratory distress, no labored breathing and not tachypneic Auscultation: + wheezes; no crackles Cardiovascular: RRR, no murmur, no edema Gastrointestinal (Abdomen): normal bowel sounds, soft, nontender, no hepatosplenomegaly Musculoskeletal: Extremities: extremities normal to inspection Skin: Severe hyperkeratosis of the feet and ankles Neurologic: Nonfocal exam Lymphatic: no cervical lymphadenopathy Results & Data Results & Data Vital Signs (Past 12 Hours) Vital Signs Temp Pulse Pulse Resp BP BP Pulse Ox 10/20/23 08:15 99 H 25 H 98 10/20/23 07:56 36.8 C 83 20 128/61 99 10/20/23 04:16 36.7 C 84 18 125/61 98 10/19/23 23:49 80 98/67 L 10/19/23 23:37 113 H 114/83 10/19/23 23:15 36.9 C 108 H 21 103/55 L 97 O2 Del Method O2 Flow Rate 10/20/23 08:15 Nasal Cannula 4 10/20/23 07:56 Nasal Cannula 3 10/20/23 04:16 Nasal Cannula 3 10/19/23 23:49 10/19/23 23:37 10/19/23 23:15 Nasal Cannula 3 Critical Care Results & Data Vital Signs (Past 12 Hours) Vital Signs Temp Pulse Pulse Resp BP BP Pulse Ox 10/20/23 08:15 99 H 25 H 98 10/20/23 07:56 36.8 C 83 20 128/61 99 10/20/23 04:16 36.7 C 84 18 125/61 98 10/19/23 23:49 80 98/67 L 10/19/23 23:37 113 H 114/83 10/19/23 23:15 36.9 C 108 H 21 103/55 L 97 O2 Del Method O2 Flow Rate 10/20/23 08:15 Nasal Cannula 4 10/20/23 07:56 Nasal Cannula 3 10/20/23 04:16 Nasal Cannula 3 10/19/23 23:49 10/19/23 23:37 10/19/23 23:15 Nasal Cannula 3 Lab & Micro Results (Past 24 Hours) RBC 2.87 M/uL (4.70-6.10) L 10/20/23 WBC 8.63 K/ul (4.8-10.8) 10/20/23 Hgb 8.6 g/dl (14.0-18.0) L 10/20/23 Hct 27.0 % (42.0-52.0) L 10/20/23 MCV 94.1 fL (80.0-100.0) 10/20/23 MCH 30.0 pg (25.0-34.0) 10/20/23 MCHC 31.9 g/dL (32.0-36.0) L 10/20/23 RDW Standard Deviation 45.1 fL (36.4-46.3) 10/20/23 RDW Coefficient of Variation 13.1 % (11.5-14.5) 10/20/23 Plt Count 185 K/uL (130-400) 10/20/23 MPV 11.2 fL (9.4-12.4) 10/20/23 Na 139 mmol/L (136-145) 10/20/23 K 4.4 mmol/L (3.5-5.1) 10/20/23 Cl 99 mmol/L (98-107) 10/20/23 CO2 39 mmol/L (21-32) H 10/20/23 Anion Gap 1 (3-11) L 10/20/23 BUN 29 mg/dl (6-23) H 10/20/23 Creatinine 0.84 mg/dl (0.6-1.4) 10/20/23 Estimated GFR ( Amer) 105.7 ml/min 10/20/23 Estimated GFR (Non-Af Amer) 91.2 ml/min 10/20/23 BUN/Creatinine Ratio 34.5 (10-20) H 10/20/23 Glu 101 mg/dl (70-99(Fasting)) H 10/20/23 Ca 8.5 mg/dl (8.6-10.3) L 10/20/23 Phosphorus Level 2.5 mg/dl (2.5-4.9) 10/20/23 Mg 2.3 mg/dl (1.7-2.4) 10/20/23 07:02 Calcium Level 8.5 mg/dl (8.6-10.3) L 10/20/23 07:02 Microbiology 10/17/23 02:07 Gram Stain - Final Sputum, Expectorated Sputum Culture - Final Pseudomonas aeruginosa Diagnostic Findings (Past 24 Hours) CT of the chest 10/16/2023 was independently reviewed. There is a 3 cm right lower lobe nodule with some patchy infiltrates in the bilateral upper lobes. No obvious adenopathy. No comparison films I & O Totals 24 Hours 10/19/23 10/20/23 10/21/23 06:59 06:59 06:59 Intake Total 495 / 495 1845 / 1845 Output Total 1625 / 1625 725 / 725 Balance -1130 / -1130 1120 / 1120 Cumulative 10/16/23 16:51 thru 10/20/23 06:00 Intake Total 3200 Output Total 3050 Balance 150 RT Ventilator Mngmt (Last Documented) Ventilator Ordered Settings Respiratory Rate 25 10/20/23 08:15 Ventilator - PT Measurements Respiratory Rate 25 PG Care Time/CCT Total # of Minutes Spent Total Time Spent with Patient: Total time spent is greater than 50% in coordination of care (as documented) at patient's floor/unit and/or counseling patient: Coding Level of Care Code 17289 INT INP/OBS CARE 3/75MIN Diagnoses Right lower lobe lung mass R91.8 Bilateral pneumonia J18.9 Acute exacerbation of chronic obstructive pulmonary disease J44.1
[2023-10-20] MEDS: predniSONE 20 MG TAB PO SCH (11:56)
--- NOTE | 2023-10-20 15:30 | Cardiology Consultation ---
Date of Consultation October 20, 2023 Assessment & Plan (1) Atrial fibrillation: Plan 1. Atrial fibrillation: Patient unaware of the arrhythmia. Certainly at risk given his primary pulmonary problems. No significant valvular heart disease. No known ischemic heart disease. Overall preserved LV systolic function. I would agree with initial attempts at rate control. Given the fact that this is his first known episode it is very likely he will convert back to sinus on his own. If he does not convert back to sinus we could entertain the possibility of a cardioversion once clinical condition stabilizes. With regard to anticoagulation, he is at least a [id number] 1 if not 2 I would recommend continued systemic anticoagulation preferably with a NOAC. Eliquis 5 mg twice daily would seem a reasonable option. He could continue on Lovenox or if there is any concern that he will require a biopsy of the lung mass, or placement of a port. If there is any concern regarding bleeding resulting in his notable anemia then anticoagulation can be held while this is investigated. History of Present Illness Reason for Consultation: Atrial fibrillation Requesting Physician: Nereiad Attending Physician: Franklin Padron History of Present Illness The patient is a 68-year-old gentleman with a reported history of NSTEMI and significant COPD currently on supplemental oxygen. It seems he was admitted to the hospital for a COPD exacerbation. He is also suffering from bilateral pneumonia and was discovered to have a right lower lobe lung mass as well. During his hospitalization the patient did develop a rapid heartbeat later diagnosed as atrial fibrillation. He was transferred to the telemetry brothers, started on metoprolol and enoxaparin. The patient was unaware of any change in his heartbeat. He has not noticed any sense of palpitation or irregularity. He states that at home he has not been aware of any palpitations either. He does use a pulse oximeter at home but has not noticed any high heart rates. He is primarily limited by significant breathing difficulty. He ambulates with a walker. He did not report symptoms of chest pain recently. No dizziness or lightheadedness. Allergies Allergy/AdvReac Type Severity Reaction Status Date / Time No Known Allergies Allergy Verified 10/16/23 21:32 Home Medications Medication Instructions Recorded Confirmed Type albuterol sulfate 90 mcg/actuation 2 puff inhalation Q6H PRN 06/19/21 10/16/23 History aerosol inhaler Shortness Of Breath Or Wheezing quetiapine 400 mg tablet 200 mg PO HS 06/19/21 10/16/23 History albuterol sulfate 2.5 mg/3 mL 2.5 mg inhalation QID PRN 05/27/23 10/16/23 History (0.083 %) solution for nebulization Shortness Of Breath Or Wheezing atorvastatin 10 mg tablet (Lipitor) 10 mg PO DAILY 05/27/23 10/16/23 History buspirone 15 mg tablet 15 mg PO BID 05/27/23 10/16/23 History fluticasone 500 mcg-salmeterol 50 1 inh inhalation BID 05/27/23 10/16/23 History mcg/dose blistr powdr for inhalation (Advair Diskus) lanolin alcohols-mineral 1 applic topical BID PRN Dry Skin 05/27/23 10/16/23 Hi story oil-w.petrolatum-ceresin topical cream (Eucerin topical cream) lorazepam 0.5 mg tablet 0.5 mg PO BID PRN Anxiety 05/27/23 10/16/23 History tiotropium bromide 2.5 2 puff inhalation DAILY 05/27/23 10/16/23 History mcg/actuation mist for inhalation (Spiriva Respimat) Patient History Medical History Vitamin D deficiency Ventricular premature depolarization Unspecified mood [affective] disorder Nicotine dependence Insomnia Emphysema lung Dependence on supplemental oxygen Anxiety Social History Smoking Status: Current every day smoker Tobacco Type: Cigarettes Hx Alcohol Use: No Hx Substance Use: No Preferred Language: Kiswahili Communication Ability: Effective Immigration Case Manager Required: No Beliefs That Will Affect Care: None Current Living Situation: Alone Current Living Situation Comment: Lives at [facility] Feels Safe at Home: Yes Assistive Devices: Cane, Oxygen - Continuous and Walker Review of Systems Review of Systems: Per HPI. Coughing. Feeling weak. Physical Exam Physical Exam: The patient is alert and oriented. Mood and affect appeared normal. He answered all questions appropriately. Using supplemental oxygen. HEENT: Pupils are equal and reactive to light and accommodation. Extraocular movements are intact. The sclerae are anicteric. Neuro: Cranial nerves intact Lungs: Very distant breath sounds with prolonged expiratory phase. Expiratory wheezing noted. Cardiac: Heart demonstrates an irregular rhythm. Normal S1 and S2. No murmurs on examination. Pulses: The patient has palpable radial pulses bilaterally that are equal in intensity Extremities: There was no evidence of hypoperfusion. Skin: I did not appreciate any rashes on examination today. Results & Data Vital Signs (Past 12 Hours) Vital Signs Temp Pulse Resp BP Pulse Ox Pulse Ox Pulse Ox 10/20/23 14:57 71 18 96 10/20/23 12:45 10/20/23 12:03 98 94 10/20/23 11:29 36.3 C L 105 H 20 109/61 100 10/20/23 11:03 114 H 25 H 100 10/20/23 08:15 99 H 25 H 98 10/20/23 07:56 36.8 C 83 20 128/61 99 10/20/23 04:16 36.7 C 84 18 125/61 98 O2 Del Method O2 Flow Rate O2 Flow Rate O2 Flow Rate 10/20/23 14:57 Nasal Cannula 4 10/20/23 12:45 Nasal Cannula 4 10/20/23 12:03 4 4 10/20/23 11:29 Nebulizer 10/20/23 11:03 Nasal Cannula 4 10/20/23 08:15 Nasal Cannula 4 10/20/23 07:56 Nasal Cannula 3 10/20/23 04:16 Nasal Cannula 3 Laboratory Results Abnormal Lab Results 10/20/23 07:02 WBC 8.63 RBC 2.87 L Hgb 8.6 L Hct 27.0 L MCV 94.1 MCH 30.0 MCHC 31.9 L RDW Std Deviation 45.1 RDW Coeff of Sushila 13.1 Plt Count 185 MPV 11.2 Sodium 139 Potassium 4.4 Chloride 99 Carbon Dioxide 39 H Anion Gap 1 L BUN 29 H Creatinine 0.84 Est Cr Clr Drug Dosing 81.0 Est GFR ( Amer) 105.7 Est GFR (Non-Af Amer) 91.2 BUN/Creatinine Ratio 34.5 H Glucose 101 H Calcium 8.5 L Phosphorus 2.5 Magnesium 2.3 C-Reactive Protein 0.62 H Procalcitonin 0.07 Diagnostic Findings Echocardiogram 10/17/2023: Normal LV systolic function with ejection fraction of 55 to 60%. Stage I diastolic dysfunction. Mild to moderate LVH. Mildly dilated inferior vena cava with borderline aortic root dilation. PG Care Time/CCT Total # of Minutes Spent Total Time Spent with Patient: Total time spent is greater than 50% in coordination of care (as documented) at patient's floor/unit and/or counseling patient: Coding Level of Care Code 14317 INT INP/OBS CARE 3/75MIN Diagnoses Atrial fibrillation I48.91
--- NOTE | 2023-10-20 16:00 | Electrocardiogram Report ---
Test Reason : Blood Pressure : */* mmHG Vent. Rate : 121 BPM Atrial Rate : 122 BPM P-R Int : * ms QRS Dur : 92 ms QT Int : 270 ms P-R-T Axes : * 96 31 degrees QTcB Int : 383 ms Poor data quality, interpretation may be adversely affected Atrial fibrillation with rapid ventricular response with premature ventricular or aberrantly conducte d complexes Rightward axis Abnormal ECG When compared with ECG of 19-Oct-2023 06:41, Atrial fibrillation has replaced Sinus rhythm Vent. rate has increased by 55 bpm Confirmed by Rey Bales ([id number]) on 10/20/2023 4:00:08 PM Referred By: REFERRED SELF Confirmed By: Rey Bales
--- NOTE | 2023-10-20 17:09 | Hospitalist Progress Note ---
Date of Service October 20, 2023 Assessment & Plan (1) Acute on chronic respiratory failure with hypoxia and hypercapnia: (2) Acute exacerbation of chronic obstructive pulmonary disease: (3) Right lower lobe lung mass: (4) Non-ST elevation [place] (NSTEMI): (5) Tobacco abuse: (6) Hyperlipidemia: (7) Bipolar disorder: (8) Dependence on supplemental oxygen: (9) Depression with anxiety: (10) Bilateral pneumonia: Plan #Acute on chronic respiratory failure with hypoxia #COPD exacerbation #bilateral upper lobe pneumonia - Given methylprednisolone 80 mg IV in the ED, currently on Methylprednisolone 40 mg IV every 8 hours, cont at this time -will transition to daily after receviing 2 doses on 10/18 - Duonebs every 4 hours while awake and every 2 hours when necessary, breo ordered - Cefepime 2 g IV every 8 hours, Azithromycin 500 mg IV every 24 hours, Day 3 - Guaifenesin extended release 1200 mg p.o. twice daily - Nasal cannula oxygen, titrate to keep pulse ox around 90%. Patient with baseline 4 L requirement - MRSA negative -consulted pulm: appreciate input #Right lower lobe lung mass 3 cm- - Primary consideration is primary lung adenocarcinoma - Radiology recommends PET/CT scan for further evaluation - Consult oncology: awaiting input from oncology. #NSTEMI - The patient will be admitted to telemetry for serial cardiac enzymes, serial EKG's, cardiac rhythm monitoring - Troponin 190.2 with follow-up 165.3, then 145.0 - ECHO showing nl LV size, mild concentric LV hypertrophy, EF: 55-60%, grade I DD - Likely type II supply/demand mismatch #Bipolar disorder #anxiety with depression- - Continue BuSpar, lorazepam and quetiapine #Overgrown toenails - podiatry consulted #Poor access to care - per report, pt has difficulty getting to appointments as outpatient. Bedside RN initiated CM support to set up outpatient support for patient. - [facility] #paroxysmal a fib #DVT ppx: lovenox Admission and Anticipated Discharge Date Admission Date: October 16, 2023 Subjective Patient reports feeling much better today. Review of Systems Review of Systems: All systems reviewed & are unremarkable except as noted in HPI & below Physical Exam Physical Exam: Gen: in bed, no acute distress HEENT: NC/AT, MMM CVS: s1s2 nl, RRR Lungs: mild respiratory distress, diminished breath sounds, scattered expiratory wheezing Abd: soft, NT, nl BS Ext: no edema, overgrown toenails (few missing currently) Psych: pleasant, communicating appropriately Results & Data Results & Data Vital Signs (Past 12 Hours) Vital Signs Temp Pulse Resp BP Pulse Ox Pulse Ox Pulse Ox 10/20/23 15:52 36.8 C 76 18 154/56 H 97 10/20/23 14:57 71 18 96 10/20/23 12:45 10/20/23 12:03 98 94 10/20/23 11:29 36.3 C L 105 H 20 109/61 100 10/20/23 11:03 114 H 25 H 100 10/20/23 08:15 99 H 25 H 98 10/20/23 07:56 36.8 C 83 20 128/61 99 O2 Del Method O2 Flow Rate O2 Flow Rate O2 Flow Rate 10/20/23 15:52 Nasal Cannula 4 10/20/23 14:57 Nasal Cannula 4 10/20/23 12:45 Nasal Cannula 4 10/20/23 12:03 4 4 10/20/23 11:29 Nebulizer 10/20/23 11:03 Nasal Cannula 4 10/20/23 08:15 Nasal Cannula 4 10/20/23 07:56 Nasal Cannula 3 PG Care Time/CCT Total # of Minutes Spent Total Time Spent with Patient: Total time spent is greater than 50% in coordination of care (as documented) at patient's floor/unit and/or counseling patient: Coding Level of Care Code 40668 SUB INP/OBS CARE 2/35MIN Diagnoses Acute on chronic respiratory failure with hypoxia and hypercapnia J96.21; J96.22 Acute exacerbation of chronic obstructive pulmonary disease J44.1 Right lower lobe lung mass R91.8 Non-ST elevation [place] (NSTEMI) I21.4 Tobacco abuse Z72.0 Hyperlipidemia E78.5 Bipolar disorder F31.9 Dependence on supplemental oxygen Z99.81 Depression with anxiety F41.8 Bilateral pneumonia J18.9
[2023-10-20] MEDS: AMOXICILLIN/CLAVULANATE 875 MG TAB PO SCH (17:55)
--- NOTE | 2023-10-20 18:01 | Electrocardiogram Report ---
Test Reason : Blood Pressure : */* mmHG Vent. Rate : 70 BPM Atrial Rate : 70 BPM P-R Int : 134 ms QRS Dur : 94 ms QT Int : 364 ms P-R-T Axes : 65 95 52 degrees QTcB Int : 393 ms Poor data quality, interpretation may be adversely affected Sinus rhythm with Premature atrial complexes Rightward axis Borderline ECG When compared with ECG of 19-Oct-2023 23:11, (unconfirmed) Sinus rhythm has replaced Atrial fibrillation Vent. rate has decreased by 51 bpm Confirmed by Rey Bales ([id number]) on 10/20/2023 6:01:39 PM Referred By: REFERRED SELF Confirmed By: Rey Bales
[2023-10-20] MEDS: AZITHROMYCIN 250 MG TAB PO SCH (21:06)
[2023-10-21 06:51] LABS: Hematocrit (blood only) 25.7 % (42.0-52.0); Hemoglobin 7.9 g/dl (14.0-18.0); Mean Corpuscular Hemoglobin 29.7 pg (25.0-34.0); Mean Corpuscular Hgb Conc 30.7 g/dL (32.0-36.0); Mean Corpuscular Volume 96.6 fL (80.0-100.0); Mean Platelet Volume 11.6 fL (9.4-12.4); Platelet Count 180 K/uL (130-400); RDW Coefficient of Variation 13.1 % (11.5-14.5); RDW Standard Deviation 45.8 fL (36.4-46.3); Red Blood Count 2.66 M/uL (4.70-6.10); White Blood Count 8.79 K/ul (4.8-10.8)
[2023-10-21 07:21] LABS: BUN Creatinine Ratio 40.2 (10-20); Calcium 8.7 mg/dl (8.6-10.3); Creatinine Clr Calc Pharmacy 74.3 ml/min; Est GFR (African American) 100.1 ml/min; Est GFR (Non-African American) 86.4 ml/min; Potassium 4.1 mmol/L (3.5-5.1)
[2023-10-21] MEDS: PANTOprazole 40 MG in SYRINGE 0 ML IV ONE (08:19)
[2023-10-21 09:38] LABS: Ferritin 238.8 ng/ml (8-388)
--- NOTE | 2023-10-21 20:59 | Hospitalist Progress Note ---
Date of Service October 21, 2023 Assessment & Plan (1) Acute on chronic respiratory failure with hypoxia and hypercapnia: (2) Acute exacerbation of chronic obstructive pulmonary disease: (3) Right lower lobe lung mass: (4) Non-ST elevation [place] (NSTEMI): (5) Tobacco abuse: (6) Hyperlipidemia: (7) Bipolar disorder: (8) Dependence on supplemental oxygen: (9) Depression with anxiety: (10) Bilateral pneumonia: Plan #Acute on chronic respiratory failure with hypoxia #COPD exacerbation #bilateral upper lobe pneumonia - Given methylprednisolone 80 mg IV in the ED, currently on Methylprednisolone 40 mg IV every 8 hours, cont at this time -will transition to daily after receviing 2 doses on 10/18 - Duonebs every 4 hours while awake and every 2 hours when necessary, breo ordered - Cefepime 2 g IV every 8 hours, Azithromycin 500 mg IV every 24 hours, Day 3 - Guaifenesin extended release 1200 mg p.o. twice daily - Nasal cannula oxygen, titrate to keep pulse ox around 90%. Patient with baseline 4 L requirement - MRSA negative -consulted pulm: appreciate input -Plan to discharge on 10/21 #Right lower lobe lung mass 3 cm- - Primary consideration is primary lung adenocarcinoma - Radiology recommends PET/CT scan for further evaluation - Consult oncology: appreciate input from Oncology. #NSTEMI - The patient will be admitted to telemetry for serial cardiac enzymes, serial EKG's, cardiac rhythm monitoring - Troponin 190.2 with follow-up 165.3, then 145.0 - ECHO showing nl LV size, mild concentric LV hypertrophy, EF: 55-60%, grade I DD - Likely type II supply/demand mismatch -monitoring hemogblobin #Bipolar disorder #anxiety with depression- - Continue BuSpar, lorazepam and quetiapine #Overgrown toenails - podiatry consulted #Poor access to care - per report, pt has difficulty getting to appointments as outpatient. Bedside RN initiated CM support to set up outpatient support for patient. - [facility] #paroxysmal a fib #DVT ppx: lovenox Admission and Anticipated Discharge Date Admission Date: October 16, 2023 Subjective Patient reports no new symptoms. Review of Systems Review of Systems: All systems reviewed & are unremarkable except as noted in HPI & below Physical Exam Physical Exam: Gen: in bed, no acute distress HEENT: NC/AT, MMM CVS: s1s2 nl, RRR Lungs: mild respiratory distress, diminished breath sounds, scattered expiratory wheezing Abd: soft, NT, nl BS Ext: no edema, overgrown toenails (few missing currently) Psych: pleasant, communicating appropriately Results & Data Results & Data Vital Signs (Past 12 Hours) Vital Signs Temp Pulse Pulse Resp BP Pulse Ox O2 Del Method 10/21/23 19:25 64 19 99 Room Air 10/21/23 15:19 36.8 C 75 18 109/62 97 Nasal Cannula 10/21/23 15:16 97 10/21/23 14:37 77 18 100 Nasal Cannula 10/21/23 14:00 61 10/21/23 11:00 36.8 C 79 18 119/58 L 96 Nasal Cannula 10/21/23 10:37 74 23 94 Nasal Cannula O2 Flow Rate 10/21/23 19:25 4 10/21/23 15:19 4 10/21/23 15:16 10/21/23 14:37 4 10/21/23 14:00 10/21/23 11:00 4 10/21/23 10:37 4 PG Care Time/CCT Total # of Minutes Spent Total Time Spent with Patient: Total time spent is greater than 50% in coordination of care (as documented) at patient's floor/unit and/or counseling patient: Coding Level of Care Code 76232 SUB INP/OBS CARE 2/35MIN Diagnoses Acute on chronic respiratory failure with hypoxia and hypercapnia J96.21; J9 6.22 Acute exacerbation of chronic obstructive pulmonary disease J44.1 Right lower lobe lung mass R91.8 Non-ST elevation [place] (NSTEMI) I21.4 Tobacco abuse Z72.0 Hyperlipidemia E78.5 Bipolar disorder F31.9 Dependence on supplemental oxygen Z99.81 Depression with anxiety F41.8 Bilateral pneumonia J18.9
[2023-10-22 06:17] LABS: BUN Creatinine Ratio 36.3 (10-20); Calcium 8.5 mg/dl (8.6-10.3); Est GFR (African American) 107.9 ml/min; Est GFR (Non-African American) 93.1 ml/min; Potassium 3.7 mmol/L (3.5-5.1)
[2023-10-22 06:18] LABS: Basophils # (auto) 0.01 K/uL (0.00-0.20); Basophils % (auto) 0.1 %; Eosinophils # (auto) 0.01 K/uL (0.00-0.50); Eosinophils % (auto) 0.1 %; Hematocrit (blood only) 24.3 % (42.0-52.0); Hemoglobin 7.6 g/dl (14.0-18.0); Immature Granulocytes # (auto) 0.05 K/uL (0.01-0.20); Immature Granulocytes % (auto) 0.5 %; Lymphocytes # (auto) 2.82 K/uL (1.20-3.40); Lymphocytes % (auto) 30.1 %; Mean Corpuscular Hemoglobin 29.7 pg (25.0-34.0); Mean Corpuscular Hgb Conc 31.3 g/dL (32.0-36.0); Mean Corpuscular Volume 94.9 fL (80.0-100.0); Mean Platelet Volume 11.8 fL (9.4-12.4); Monocytes # (auto) 1.17 K/uL (0.11-0.59); Monocytes % (auto) 12.5 %; Neutrophils % (auto) 56.7 %; Platelet Count 161 K/uL (130-400); RDW Coefficient of Variation 12.8 % (11.5-14.5); RDW Standard Deviation 44.4 fL (36.4-46.3); Red Blood Count 2.56 M/uL (4.70-6.10); White Blood Count 9.36 K/ul (4.8-10.8)
[2023-10-22 06:47] LABS: Stomatocytes 1+; Tear Drop Cells 1+
[2023-10-22 07:30] VITALS: TEMP 97.9
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
[2023-10-22 11:24] VITALS: PULSE 76; RESP 24; O2SAT 98
[2023-10-22 13:48] VITALS: BP 148/85
== END 2023-10-22 15:34 | disposition home health service (06) | DRG 193 ==
LOC: ED 17:03 → EDINP 20:35 → SUATTDRO 20:35 → 1E 22:25 → 2E 10-18 13:59
DX: Z99.81 Dependence on supplemental oxygen; F17.210 Nicotine dependence, cigarettes, uncomplicated; I21.A1 Myocardial infarction type 2; J44.0 Chronic obstructive pulmonary disease with (acute) lower respiratory infection; Z79.51 Long term (current) use of inhaled steroids; J44.1 Chronic obstructive pulmonary disease with (acute) exacerbation; J96.21 Acute and chronic respiratory failure with hypoxia; E78.5 Hyperlipidemia, unspecified; I48.0 Paroxysmal atrial fibrillation; F41.9 Anxiety disorder, unspecified; D64.9 Anemia, unspecified; Z59.82 Transportation insecurity; F31.9 Bipolar disorder, unspecified; J18.9 Pneumonia, unspecified organism; R91.8 Other nonspecific abnormal finding of lung field; J96.22 Acute and chronic respiratory failure with hypercapnia

== ENCOUNTER 2023-11-11 12:52 | Inpatient (IN) ==
--- NOTE | 2023-11-11 13:04 | Emergency Department Note ---
Impression & Plan COPD (chronic obstructive pulmonary disease) ADMIT ED Provider Note HPI: History obtained from patient. The patient is a 68-year-old gentleman with history of COPD, on 4 L of nasal cannula oxygen at baseline, presents the emergency department with a chief complaint of shortness of breath. Patient states that shortness of breath seems to be worsening over the past several weeks, he states that he noticed this ever since he was discharged from the hospital earlier this month. Patient denies any chest pain. Patient states he had some lab work done in the outpatient setting this morning that showed a critically low hemoglobin and he came into the ER to be assessed. ROS: - Per HPI Differential Diagnosis: COPD exacerbation, pneumonia, pulmonary edema, acute CHF exacerbation, viral upper respiratory infection, acute coronary syndrome, symptomatic anemia, amongst other potential pathologies. *Outpatient medications and allergy history reviewed. PE: General: Alert, obese, mild distress secondary to increased work of breathing HEENT: Normocephalic, trachea midline Eyes: Extraocular eye movement is intact, no scleral erythema Pulmonary: Diminished air movement bilaterally with mild expiratory wheezing Cardio: Regular rate and rhythm GI: Abdomen is soft to palpation, rectal examination was performed with RN at the bedside that shows external hemorrhoids without active bleeding, occult stool testing is negative : No suprapubic tenderness MSK: No evidence of trauma or malformation of the extremities, no edema Skin: No evidence of rash Neuro: Alert, no focal deficits Psychiatric: Cooperative 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 Lab work shows no leukocytosis, hemoglobin is lower than baseline at 6.7 (baseline appears to be around 8.0), platelet count is normal. Venous blood gas shows a pH of 7.29, pCO2 is 92, CMP does not show any critical findings, serum bicarbonate level appears to be near baseline at 45, troponin is negative, BNP is mildly elevated at 106, chest x-ray does not show any evidence of pneumonia or obvious pulmonary edema. Urinalysis does not show obvious infection, viral panel testing is negative. Patient was consented for blood transfusion at the bedside, I do think there is likely an element of symptomatic anemia play however given his diminished breath sounds with mild expiratory wheezing his symptoms are probably more related to COPD. Patient was placed on BiPAP given his hypercarbia, he did remain saturating well on his baseline 4 L nasal cannula oxygen prior to initiation of BiPAP. On my reassessment after BiPAP was initiated the patient appears to be breathing much more comfortably. Patient is in agreement for admission at this time. I discussed the patient's presentation with the on-call hospitalist, Dr. Montgomery, and the patient was placed for admission in improved condition. Consultants/Discussions held with other healthcare providers: -Hospitalist, Dr. Montgomery Disposition discussion held by myself with: -Patient and family at the bedside * CRITICAL CARE TIME: ( 39 ) minutes -Stabilization of hypercarbic respiratory failure and symptomatic anemia requiring positive pressure ventilation as well as packed red blood cell transfusion for hemoglobin of 6.7, time spent at the bedside, interpretation of diagnostic studies, discussion with other healthcare providers and arrangement of admission. Diagnosis: 1. Acute hypercarbic respiratory failure 2. COPD exacerbation, acute 3. Symptomatic anemia, acute Disposition: Admission Ministerio Wilhelm DO Emergency Medicine Past Med/Surg History Problem List (Updated 11/11/23 @ 16:31 by Ministerio Wilhelm DO) COPD (chronic obstructive pulmonary disease) (Acute) Macrocytic anemia Atrial fibrillation Bilateral pneumonia Depression with anxiety Bipolar disorder Hyperlipidemia Dependence on supplemental oxygen Right lower lobe lung mass Acute on chronic respiratory failure with hypoxia and hypercapnia Non-ST elevation RI (NSTEMI) (Acute) Acute exacerbation of chronic obstructive pulmonary disease (Acute) Hypercarbia (Acute) Acute dyspnea (Acute) Tobacco abuse (Acute) Hypoxemia COPD (chronic obstructive pulmonary disease) (Acute) Medical History Vitamin D deficiency Ventricular premature depolarization Unspecified mood [affective] disorder Nicotine dependence Insomnia Emphysema lung Dependence on supplemental oxygen Anxiety Social History Smoking Status: Current every day smoker Tobacco Type: Cigarettes Hx Alcohol Use: No Hx Substance Use: No Preferred Language: Danish Communication Ability: Effective Telecommunications Professional Required: No Beliefs That Will Affect Care: None Current Living Situation: Alone Current Living Situation Comment: Lives at [place] [address] Feels Safe at Home: Yes Assistive Devices: Cane, Oxygen - Continuous and Walker Allergies Allergies Allergy/AdvReac Type Severity Reaction Status Date / Time No Known Allergies Allergy Verified 10/16/23 21:32 Home Meds Home Medications Medication Instructions Recorded Confirmed albuterol sulfate 90 mcg/actuation 2 puff inhalation Q6H PRN 06/19/21 11/11/23 aerosol inhaler Shortness Of Breath Or Wheezing albuterol sulfate 2.5 mg/3 mL 2.5 mg inhalation QID PRN 05/27/23 11/11/23 (0.083 %) solution for nebulization Shortness Of Breath Or Wheezing atorvastatin 10 mg tablet (Lipitor) 10 mg PO DAILY 05/27/23 11/11/23 buspirone 15 mg tablet 15 mg PO BID 05/27/23 11/11/23 fluticasone 500 mcg-salmeterol 50 1 inh inhalation BID 05/27/23 11/11/23 mcg/dose blistr powdr for inhalation (Advair Diskus) lanolin alcohols-mineral 1 applic topical BID PRN Dry Skin 05/27/23 11/11/23 oil-w.petrolatum-ceresin topical cream (Eucerin topical cream) lorazepam 0.5 mg tablet 0.5 mg PO BID PRN Anxiety 05/27/23 11/11/23 tiotropium bromide 2.5 2 puff inhalation DAILY 05/27/23 11/11/23 mcg/actuation mist for inhalation (Spiriva Respimat) Previous Rx's Medication Instructions Recorded guaifenesin 600 mg tablet, 1,200 mg (2 x 600 mg) PO Q12 #15 10/22/23 extended release 12 hr (Mucinex) tabs pantoprazole 40 mg tablet,delayed 40 mg PO DAILY #28 tabs 10/22/23 release quetiapine 100 mg tablet 100 mg PO HS #30 tabs 10/22/23 Results & Data (ED) Vital Signs Vital Signs - 24 hr 11/11/23 13:05 11/11/23 13:05 11/11/23 13:08 Temperature 36.9 C Temperature Source Skin Pulse Rate 77 Pulse Rate [Apical] Pulse Rate from SpO2 Sensor Respiratory Rate 24 Respiratory Effort / Characteristics Spontaneous Spontaneous Labored Respiratory Depth Respiratory Pattern Blood Pressure 152/67 H Blood Pressure [Left Arm] Blood Pressure Mean 95 Blood Pressure Mean [Left Arm] Pulse Oximetry 96 100 Oxygen Delivery Method Nasal Cannula Nasal Cannula Oxygen Flow Rate 4 4 Fraction of Inspired Oxygen SaO2/FiO2 Ratio Sepsis Recent Fever Within 48 Hours No Sepsis New/Unexplained Change in Mental Status No Sepsis Action Taken by Nursing No Action Required 11/11/23 13:11 11/11/23 14:47 11/11/23 15:15 Temperature Temperature Source Pulse Rate 72 Pulse Rate [Apical] 78 Pulse Rate from SpO2 Sensor Respiratory Rate 20 19 Respiratory Effort / Characteristics Spontaneous Respiratory Depth Normal Respiratory Pattern Regular Blood Pressure Blood Pressure [Left Arm] 149/50 H Blood Pressure Mean Blood Pressure Mean [Left Arm] 83 Pulse Oximetry 100 99 99 Oxygen Delivery Method Nasal Cannula Nasal Cannula Oxygen Flow Rate 4 3 Fraction of Inspired Oxygen 40 SaO2/FiO2 Ratio Sepsis Recent Fever Within 48 Hours Sepsis New/Unexplained Change in Mental Status Sepsis Action Taken by Nursing 11/11/23 15:15 11/11/23 15:21 11/11/23 15:31 Temperature Temperature Source Pulse Rate 78 Pulse Rate [Apical] Pulse Rate from SpO2 Sensor 73 76 Respiratory Rate 24 22 Respiratory Effort / Characteristics Respiratory Depth Respiratory Pattern Blood Pressure Blood Pressure [Left Arm] Blood Pressure Mean Blood Pressure Mean [Left Arm] Pulse Oximetry 98 92 Oxygen Delivery Method Oxygen Flow Rate Fraction of Inspired Oxygen 40 40 SaO2/FiO2 Ratio Sepsis Recent Fever Within 48 Hours Sepsis New/Unexplained Change in Mental Status Sepsis Action Taken by Nursing 11/11/23 15:32 11/11/23 15:33 11/11/23 16:03 Temperature Temperature Source Pulse Rate 74 Pulse Rate [Apical] Pulse Rate from SpO2 Sensor Respiratory Rate 25 H 20 Respiratory Effort / Characteristics Respiratory Depth Respiratory Pattern Blood Pressure 144/52 H Blood Pressure [Left Arm] Blood Pressure Mean 121 Blood Pressure Mean [Left Arm] Pulse Oximetry 93 Oxygen Delivery Method Oxygen Flow Rate Fraction of Inspired Oxygen 40 SaO2/FiO2 Ratio Sepsis Recent Fever Within 48 Hours Sepsis New/Unexplained Change in Mental Status Sepsis Action Taken by Nursing 11/11/23 16:09 Temperature Temperature Source Pulse Rate Pulse Rate [Apical] 68 Pulse Rate from SpO2 Sensor Respiratory Rate 24 Respiratory Effort / Characteristics Respiratory Depth Respiratory Pattern Blood Pressure Blood Pressure [Left Arm] Blood Pressure Mean Blood Pressure Mean [Left Arm] Pulse Oximetry 100 Oxygen Delivery Method BiPAP Oxygen Flow Rate Fraction of Inspired Oxygen 40 SaO2/FiO2 Ratio 250 Sepsis Recent Fever Within 48 Hours Sepsis New/Unexplained Change in Mental Status Sepsis Action Taken by Nursing Laboratory Data 11/11/23 13:00 11/11/23 13:00 Lab Results 11/11/23 11/11/23 11/11/23 Range/Units 13:00 13:02 13:05 WBC 7.50 (4.8-10.8) K/ul RBC 2.31 L (4.70-6.10) M/uL Hgb 6.7 L* (14.0-18.0) g/dl Hct 23.6 L (42.0-52.0) % MCV 102.2 H (80.0-100.0) fL MCH 29.0 (25.0-34.0) pg MCHC 28.4 L (32.0-36.0) g/dL RDW Std Deviation 49.6 H (36.4-46.3) fL RDW Coeff of Sushila 13.5 (11.5-14.5) % Plt Count 325 (130-400) K/uL MPV 10.5 (9.4-12.4) fL Immature Gran % (Auto) 0.3 % Neut % (Auto) 68.4 % Lymph % (Auto) 21.1 % [place] % (Auto) 7.2 % Eos % (Auto) 2.7 % Baso % (Auto) 0.3 % Neut # (Auto) 5.14 (1.40-6.50) K/uL Lymph # (Auto) 1.58 (1.20-3.40) K/uL [place] # (Auto) 0.54 (0.11-0.59) K/uL Eos # (Auto) 0.20 (0.00-0.50) K/uL Baso # (Auto) 0.02 (0.00-0.20) K/uL Immature Gran # (Auto) 0.02 (0.01-0.20) K/uL RBC Morphology Unremarkable PT 10.5 (9.0-12.0) Seconds INR 1.0 (0.9-1.1) VBG pH (7.36-7.41) VBG pCO2 (38-50) mmHg VBG pO2 mmHg VBG HCO3 mmol/L VBG O2 Saturation % VBG Base Excess mEq/L Sodium 142 (136-145) mmol/L Potassium 4.0 (3.5-5.1) mmol/L Chloride 96 L (98-107) mmol/L Carbon Dioxide 45 H* (21-32) mmol/L Anion Gap 1 L (3-11) BUN 11 (6-23) mg/dl Creatinine 0.71 (0.6-1.4) mg/dl Est Cr Clr Drug Dosing 99.0 ml/min Est GFR ( Amer) 113.3 ml/min Est GFR (Non-Af Amer) 97.8 ml/min BUN/Creatinine Ratio 15.5 (10-20) Glucose 118 H (70-99(Fasting)) mg/dl Calcium 9.5 (8.6-10.3) mg/dl Iron 35 (35-175) mcg/dl TIBC 209 L (250-450) mcg/dl Unsaturated IBC 174 (155-355) mcg/dl Transferrin % Sat 17 L (20-50) % Ferritin 332.4 (8-388) ng/ml Total Bilirubin 0.3 (0.2-1.0) mg/dl AST 10 L (13-39) U/L ALT 7 (7-52) U/L Alkaline Phosphatase 70 (34-104) U/L Troponin I High Sens 19.1 (0-20) pg/ml B-Natriuretic Peptide (0-100) pg/ml Total Protein 6.1 (6.0-8.3) gm/dl Albumin 3.5 (3.4-5.0) gm/dl Globulin 2.6 (2.5-4.0) gm/dl Albumin/Globulin Ratio 1.3 (0.9-2) Vitamin B12 (180-914) pg/ml Folate (>5.38) ng/ml Urine Color Urine Appearance (Clear) Urine pH (4.5-7.5) Ur Specific [place] (1.000-1.030) Urine Protein (Negative) Urine Glucose (UA) (Negative) Urine Ketones (Negative) Urine Blood (Negative) Urine Nitrite (Negative) Urine Bilirubin (Negative) Urine Urobilinogen (Negative) Ur Leukocyte Esterase (Negative) Urine WBC (Auto) (0-5) /hpf Urine RBC (Auto) (0-2) /hpf U Hyaline Cast (Auto) (0-2) /lpf U Epithel Cells (Auto) (0-2) /hpf Urine Bacteria (Auto) (None Seen) Adenovirus (PCR) Not Detected (NotDetected) B. pertussis DNA (PCR) Not Detected (NotDetected) B.parapertussis DNA PCR Not Detected (NotDetected) C. pneumoniae DNA (PCR) Not Detected (NotDetected) Coronavirus OC43 (PCR) Not Detected (NotDetected) Coronavirus HKU1 (PCR) Not Detected (NotDetected) Coronavirus 229E (PCR) Not Detected (NotDetected) SARS-CoV-2 (PCR) Not Detected (NotDetected) Coronavirus NL63 (PCR) Not Detected (NotDetected) Human Metapneumovir PCR Not Detected (NotDetected) Influenza Type A (PCR) Not Detected (NotDetected) Influenza Type B (PCR) Not Detected (NotDetected) M. pneumoniae (PCR) Not Detected (NotDetected) Parainfluenza 1 (PCR) Not Detected (NotDetected) Parainfluenza 2 (PCR) Not Detected (NotDetected) Parainfluenza 3 (PCR) Not Detected (NotDetected) Parainfluenza 4 (PCR) Not Detected (NotDetected) RSV (PCR) Not Detected (NotDetected) Entero/Rhino (PCR) Not Detected (NotDetected) Blood Type A Negative Antibody Screen NEGATIVE Crossmatch See Detail 11/11/23 11/11/23 11/11/23 Range/Units 14:17 15:03 16:01 WBC (4.8-10.8) K/ul RBC (4.70-6.10) M/uL Hgb (14.0-18.0) g/dl Hct (42.0-52.0) % MCV (80.0-100.0) fL MCH (25.0-34.0) pg MCHC (32.0-36.0) g/dL RDW Std Deviation (36.4-46.3) fL RDW Coeff of Sushila (11.5-14.5) % Plt Count (130-400) K/uL MPV (9.4-12.4) fL Immature Gran % (Auto) % Neut % (Auto) % Lymph % (Auto) % [place] % (Auto) % Eos % (Auto) % Baso % (Auto) % Neut # (Auto) (1.40-6.50) K/uL Lymph # (Auto) (1.20-3.40) K/uL [place] # (Auto) (0.11-0.59) K/uL Eos # (Auto) (0.00-0.50) K/uL Baso # (Auto) (0.00-0.20) K/uL Immature Gran # (Auto) (0.01-0.20) K/uL RBC Morphology PT (9.0-12.0) Seconds INR (0.9-1.1) VBG pH 7.29 L 7.31 L (7.36-7.41) VBG pCO2 92 H 87 H (38-50) mmHg VBG pO2 26 mmHg VBG HCO3 44 44 mmol/L VBG O2 Saturation < 60.0 < 60.0 % VBG Base Excess 13.3 13.4 mEq/L Sodium (136-145) mmol/L Potassium (3.5-5.1) mmol/L Chloride (98-107) mmol/L Carbon Dioxide (21-32) mmol/L Anion Gap (3-11) BUN (6-23) mg/dl Creatinine (0.6-1.4) mg/dl Est Cr Clr Drug Dosing ml/min Est GFR ( Amer) ml/min Est GFR (Non-Af Amer) ml/min BUN/Creatinine Ratio (10-20) Glucose (70-99(Fasting)) mg/dl Calcium (8.6-10.3) mg/dl Iron (35-175) mcg/dl TIBC (250-450) mcg/dl Unsaturated IBC (155-355) mcg/dl Transferrin % Sat (20-50) % Ferritin (8-388) ng/ml Total Bilirubin (0.2-1.0) mg/dl AST (13-39) U/L ALT (7-52) U/L Alkaline Phosphatase (34-104) U/L Troponin I High Sens (0-20) pg/ml B-Natriuretic Peptide 106 H (0-100) pg/ml Total Protein (6.0-8.3) gm/dl Albumin (3.4-5.0) gm/dl Globulin (2.5-4.0) gm/dl Albumin/Globulin Ratio (0.9-2) Vitamin B12 301 (180-914) pg/ml Folate 7.11 (>5.38) ng/ml Urine Color Yellow Urine Appearance Clear (Clear) Urine pH 6.0 (4.5-7.5) Ur Specific [place] 1.007 (1.000-1.030) Urine Protein Negative (Negative) Urine Glucose (UA) Negative (Negative) Urine Ketones Negative (Negative) Urine Blood Negative (Negative) Urine Nitrite Negative (Negative) Urine Bilirubin Negative (Negative) Urine Urobilinogen Negative (Negative) Ur Leukocyte Esterase Trace H (Negative) Urine WBC (Auto) 0-5 (0-5) /hpf Urine RBC (Auto) 0-2 (0-2) /hpf U Hyaline Cast (Auto) 0-2 (0-2) /lpf U Epithel Cells (Auto) 0-2 (0-2) /hpf Urine Bacteria (Auto) None Seen (None Seen) Adenovirus (PCR) (NotDetected) B. pertussis DNA (PCR) (NotDetected) B.parapertussis DNA PCR (NotDetected) C. pneumoniae DNA (PCR) (NotDetected) Coronavirus OC43 (PCR) (NotDetected) Coronavirus HKU1 (PCR) (NotDetected) Coronavirus 229E (PCR) (NotDetected) SARS-CoV-2 (PCR) (NotDetected) Coronavirus NL63 (PCR) (NotDetected) Human Metapneumovir PCR (NotDetected) Influenza Type A (PCR) (NotDetected) Influenza Type B (PCR) (NotDetected) M. pneumoniae (PCR) (NotDetected) Parainfluenza 1 (PCR) (NotDetected) Parainfluenza 2 (PCR) (NotDetected) Parainfluenza 3 (PCR) (NotDetected) Parainfluenza 4 (PCR) (NotDetected) RSV (PCR) (NotDetected) Entero/Rhino (PCR) (NotDetected) Blood Type Antibody Screen Crossmatch Administered Medications Discontinued Medications Albuterol (Albut/Ipratrop 3mg/0.5mg Neb 3 Ml Vial) 3 ml NEB NOW STA; Protocol Stop: 11/11/23 13:04 Last Admin: 11/11/23 13:34 Dose: 3 ml Documented By: HONEY Lorazepam (Lorazepam 2 Mg/1 Ml Vial) 1 mg IV NOW STA Stop: 11/11/23 15:04 Last Admin: 11/11/23 15:11 Dose: 1 mg Documented By: HONEY Methylprednisolone (Methylprednisolone 125 Mg/2 Ml Vial) 125 mg IV NOW STA Stop: 11/11/23 14:39 Last Admin: 11/11/23 15:11 Dose: 125 mg Documented By: HONEY Imaging Data Radiologist's Impression: Chest X-Ray 11/11/23 13:02 XR chest 1V portable HISTORY: 68 years-old Male Dyspnea acute fatigue with shortness of breath COMPARISON: 10/16/2023 TECHNIQUE: AP view of the chest FINDINGS: Cardiac silhouette is enlarged. Emphysema with patchy irregular upper lung zone nodular densities in right lower lobe pulmonary nodule redemonstrated. No pneumothorax, pleural effusion or overt edema. Unchanged linear scarring of the lingula. Bones appear grossly intact. IMPRESSION: 1. Cardiomegaly without acute process. 2. Emphysema with bilateral pulmonary nodules redemonstrated, better evaluated on the comparison chest CT from 10/16/2023. ACT 112: Negative or not required by law. The above report was generated using voice recognition software. It may contain grammatical, syntax or spelling errors. Electronically signed by: Roc Sequeira M.D. 11/11/2023 2:01 PM Discharge Plan Visit Data Chief Complaint: Shortness of Breath/Dyspnea ED Provider: Ministerio Wilhelm Discharge Problem: COPD (chronic obstructive pulmonary disease) Forms Stand Alone Forms: My [facility] Prescriptions Prescriptions: No Action albuterol sulfate 90 mcg/actuation HFA aerosol inhaler 2 puff inhalation Q6H PRN (Reason: Shortness Of Breath Or Wheezing) albuterol sulfate 2.5 mg /3 mL (0.083 %) Solution For Nebulization 2.5 mg INHALATION QID PRN (Reason: Shortness Of Breath Or Wheezing) atorvastatin [Lipitor] 10 mg Tablet 10 mg PO DAILY lorazepam 0.5 mg Tablet 0.5 mg PO BID PRN (Reason: Anxiety) fluticasone propion-salmeterol [Advair Diskus] 500-50 mcg/dose Blister With Device 1 inh INHALATION BID buspirone 15 mg Tablet 15 mg PO BID Eucerin Cream 1 applic TOPICAL BID PRN (Reason: Dry Skin) Spiriva Respimat 2.5 mcg/actuation Mist 2 puff INHALATION DAILY guaifenesin [Mucinex] 600 mg Tablet Extended Release 12hr 1,200 mg PO Q12 Qty: 15 0RF quetiapine 100 mg tablet 100 mg PO HS Qty: 30 0RF pantoprazole 40 mg tablet,delayed release (DR/EC) 40 mg PO DAILY Qty: 28 0RF Referrals Referrals: Ce Cano C.R.N.P. [Primary Care Provider] - Discharge Problem: COPD (chronic obstructive pulmonary disease) Qualifiers: COPD type: unspecified COPD Qualified Code(s): J44.9 - Chronic obstructive pulmonary disease, unspecified
[2023-11-11] MEDS: ALBUT/IPRATROP 3MG/0.5MG NEB 3 ML VIAL NEB STA (13:34)
[2023-11-11 13:40] LABS: Hematocrit (blood only) 23.6 % (42.0-52.0); Hemoglobin 6.7 g/dl (14.0-18.0); Mean Corpuscular Hgb Conc 28.4 g/dL (32.0-36.0); Mean Corpuscular Volume 102.2 fL (80.0-100.0); Mean Platelet Volume 10.5 fL (9.4-12.4); Platelet Count 325 K/uL (130-400); RDW Coefficient of Variation 13.5 % (11.5-14.5); RDW Standard Deviation 49.6 fL (36.4-46.3); Red Blood Count 2.31 M/uL (4.70-6.10)
[2023-11-11 13:44] LABS: Albumin Globulin Ratio 1.3 (0.9-2); Albumin Level 3.5 gm/dl (3.4-5.0); BUN Creatinine Ratio 15.5 (10-20); Bilirubin,Total 0.3 mg/dl (0.2-1.0); Calcium 9.5 mg/dl (8.6-10.3); Est GFR (African American) 113.3 ml/min; Est GFR (Non-African American) 97.8 ml/min; Globulin 2.6 gm/dl (2.5-4.0); Total Protein 6.1 gm/dl (6.0-8.3)
[2023-11-11 13:47] LABS: Troponin I High Sensitivity 19.1 pg/ml (0-20)
[2023-11-11 13:52] LABS: Prothrombin Time 10.5 Seconds (9.0-12.0)
[2023-11-11 13:58] LABS: Basophils # (auto) 0.02 K/uL (0.00-0.20); Basophils % (auto) 0.3 %; Eosinophils % (auto) 2.7 %; Immature Granulocytes # (auto) 0.02 K/uL (0.01-0.20); Immature Granulocytes % (auto) 0.3 %; Lymphocytes # (auto) 1.58 K/uL (1.20-3.40); Lymphocytes % (auto) 21.1 %; Monocytes # (auto) 0.54 K/uL (0.11-0.59); Monocytes % (auto) 7.2 %; Neutrophils # (auto) 5.14 K/uL (1.40-6.50); Neutrophils % (auto) 68.4 %; RBC Morphology Unremarkable
--- NOTE | 2023-11-11 14:03 | XRay Report ---
XR chest 1V portable HISTORY: 68 years-old Male Dyspnea acute fatigue with shortness of breath COMPARISON: 10/16/2023 TECHNIQUE: AP view of the chest FINDINGS: Cardiac silhouette is enlarged. Emphysema with patchy irregular upper lung zone nodular densities in right lower lobe pulmonary nodule redemonstrated. No pneumothorax, pleural effusion or overt edema. U nchanged linear scarring of the lingula. Bones appear grossly intact. IMPRESSION: 1. Cardiomegaly without acute process. 2. Emphysema with bilateral pulmonary nodules redemonstrated, better evaluated on the comparison [facility] t CT from 10/16/2023. ACT 112: Negative or not required by law. The above report was generated using voice recognition software. It may contain grammatical, syntax o r spelling errors. Electronically signed by: Roc Sequeira M.D. 11/11/2023 2:01 PM
[2023-11-11 14:31] LABS: Adenovirus PCR Not Detected (NotDetected); Bordetella parapertussis PCR Not Detected (NotDetected); Bordetella pertussis PCR Not Detected (NotDetected); Chlamydia pneumoniae PCR Not Detected (NotDetected); Coronavirus 229E PCR Not Detected (NotDetected); Coronavirus CoV-2 (COVID19)PCR Not Detected (NotDetected); Coronavirus HKU1 PCR Not Detected (NotDetected); Coronavirus NL63 PCR Not Detected (NotDetected); Coronavirus OC43PCR Not Detected (NotDetected); Human Metapneumovirus PCR Not Detected (NotDetected); Influenza A PCR Not Detected (NotDetected); Influenza B PCR Not Detected (NotDetected); Mycoplasma pneumoniae PCR Not Detected (NotDetected); Parainfluenza Virus 1 PCR Not Detected (NotDetected); Parainfluenza Virus 2 PCR Not Detected (NotDetected); Parainfluenza Virus 3 PCR Not Detected (NotDetected); Parainfluenza Virus 4 PCR Not Detected (NotDetected); Respiratory Syncytial VirusPCR Not Detected (NotDetected); Rhinovirus/Enterovirus PCR Not Detected (NotDetected)
[2023-11-11 14:32] LABS: Base Excess VBG 13.3 mEq/L; HCO3 VBG 44 mmol/L; Oxygen Saturation VBG < 60.0 %; PCO2 VBG 92 mmHg (38-50); PO2 VBG 26 mmHg; pH VBG 7.29 (7.36-7.41)
[2023-11-11] MEDS ORDERED: SODIUM CHLORIDE 0.9% 250 ML IV PRN ×2 (14:57→15:23)
[2023-11-11] MEDS: methylPREDNISolone 125 MG/2 ML VIAL IV STA (15:11)
[2023-11-11] MEDS: LORazepam 2 MG/1 ML VIAL IV STA (15:11)
--- NOTE | 2023-11-11 15:24 | History & Physical Report ---
Date of Service November 11, 2023 Assessment & Plan (1) Acute on chronic respiratory failure with hypoxia and hypercapnia: Plan: Acute on chronic COPD,Chronic O2 dependence of 4 L - Last hemoglobin at discharge was 7.6. MCV 102 with elevated RDW - Bio fire negative -Chest x-ray: Emphysema with bilateral pulmonary nodules redemonstrated, cardiomegaly without acute process. No evidence of superimposed pneumonia Do not hyperoxygenate due to COPD physiology. Goal SpO2 greater than 90% - VBG on admission 7.29/92/26/44 consistent with acute respiratory acidosisBiPAP and serial VBG's ordered. Patient is with scattered expiratory wheezing. Methylprednisolone, pulmonary toilet, nebs continued. Patient was recently on azithromycin/Augmentin, will treat with doxycycline twice daily for COPD exacerbation Continue Advair/Spiriva (2) Macrocytic anemia: Plan: Macrocytic Anemia -Hemoglobin 6.7 on admission. Hemoglobin last 7.6 on 10/22/2023. Gradually downtrending prior to that Macrocytic w. increased RDW. Denies history of alcohol use. Denies history of cancer. Iron panel, folate, B12 pending Denies alcohol use Occult blood negative, denies GI bleeding. Denies personal history of colorectal cancer, denies family history of colorectal cancer. Has never had a colonoscopy 2 units matched. Transfuse 1, recheck H&H. Given recent NSTEMI will transfuse to goal of 8.0 rather than 7.0, may transfuse second unit if hemoglobin less than 8. -No epigastric pain or melena suggestive of upper GI bleed. BUN is normal Patient has not noticed any lower GI bleeding. If hemoglobin is stable and rises, recommend outpatient colonoscopy follow-up with GI. If nutritional studies are all normal, then follow-up with peripheral smear blood consent on file (3) Atrial fibrillation: Plan: A-fib with RVR, recent NSTEMI Anticoagulation previously discontinued due to anemia EKG: Sinus with PACs Admit to PCU Troponin normal No chest pain Continue statin (4) Tobacco abuse: Plan: Right lower lobe lung mass Pending PET scan and outpatient pulmonary follow-up. Was seen by pulm at prior hospitalization, bronchoscopy was deferred until PET scan will be completed and this needs to be done as an outpatient Plan Chronic stable issues Anx/depression: Continue quetiapine/BuSpar/Ativan DVT prophylaxis: SCDs, pharmacal prophylaxis held due to hemoglobin less than 7 CODE STATUS: Full code Disposition: PCU Diet: N.p.o. History of Present Illness Primary Care Provider: Ce Cano Maxime Chamberlain is a 68-year-old male with a past medical history of COPD on 4 L baseline oxygen, hyperlipidemia, anxiety/depression/bipolar, tobacco abuse, macrocytic anemia, and recent demand ischemia/type II NSTEMI ,recent discharge 10/22/2023 after admission for COPD exacerbation with bilateral upper lobe pneumonia who presents to the ER for evaluation of progressive dyspnea worsening over the last several weeks since discharge from the hospital. Maxime reports that getting out of the hospital this past month he has had progressive worsening dyspnea. He reports his cough has actually improved on antibiotics although he continues to have an increase in wheezing this past week and some sputum production for thick white and foamy sputum. He has had some feeling of chills intermittently since getting out of the hospital previously. He has not had any bloody or black bowel movements. No epigastric pain. No abdominal pain. No nausea or vomiting. He has not noticed any GI bleeding in the past. He has no personal or family history of colorectal cancer. He has never had a colonoscopy. He denies chest pain or chest pressure. Does endorse dyspnea and wheezing, worse in the last 7 days. No lightheadedness or dizziness. No syncope. He reports he does not drink alcohol. Does use tobacco products. No known drug allergies, medical history, social history reviewed. Allergies Allergy/AdvReac Type Severity Reaction Status Date / Time No Known Allergies Allergy Verified 10/16/23 21:32 Home Medications Medication Instructions Recorded Confirmed Type albuterol sulfate 90 mcg/actuation 2 puff inhalation Q6H PRN 06/19/21 11/11/23 History aerosol inhaler Shortness Of Breath Or Wheezing albuterol sulfate 2.5 mg/3 mL 2.5 mg inhalation QID PRN 05/27/23 11/11/23 History (0.083 %) solution for nebulization Shortness Of Breath Or Wheezing atorvastatin 10 mg tablet (Lipitor) 10 mg PO DAILY 05/27/23 11/11/23 History buspirone 15 mg tablet 15 mg PO BID 05/27/23 11/11/23 History fluticasone 500 mcg-salmeterol 50 1 inh inhalation BID 05/27/23 11/11/23 History mcg/dose blistr powdr for inhalation (Advair Diskus) lanolin alcohols-mineral 1 applic topical BID PRN Dry Skin 05/27/23 11/11/23 History oil-w.petrolatum-ceresin topical cream (Eucerin topical cream) lorazepam 0.5 mg tablet 0.5 mg PO BID PRN Anxiety 05/27/23 11/11/23 History tiotropium bromide 2.5 2 puff inhalation DAILY 05/27/23 11/11/23 History mcg/actuation mist for inhalation (Spiriva Respimat) guaifenesin 600 mg tablet, 1,200 mg (2 x 600 mg) PO Q12 #15 10/22/23 11/11/23 Rx extended release 12 hr (Mucinex) tabs pantoprazole 40 mg tablet,delayed 40 mg PO DAILY #28 tabs 10/22/23 11/11/23 Rx release quetiapine 100 mg tablet 100 mg PO HS #30 tabs 10/22/23 11/11/23 Rx Past Med/Surg History Problem List (Updated 11/11/23 @ 15:21 by Israel Montgomery MD) Macrocytic anemia Atrial fibrillation Bilateral pneumonia Depression with anxiety Bipolar disorder Hyperlipidemia Dependence on supplemental oxygen Right lower lobe lung mass Acute on chronic respiratory failure with hypoxia and hypercapnia Non-ST elevation UT (NSTEMI) (Acute) Acute exacerbation of chronic obstructive pulmonary disease (Acute) Hypercarbia (Acute) Acute dyspnea (Acute) Tobacco abuse (Acute) Hypoxemia COPD (chronic obstructive pulmonary disease) (Acute) Medical History Vitamin D deficiency Ventricular premature depolarization Unspecified mood [affective] disorder Nicotine dependence Insomnia Emphysema lung Dependence on supplemental oxygen Anxiety Social History Smoking Status: Current every day smoker Tobacco Type: Cigarettes Hx Alcohol Use: No Hx Substance Use: No Preferred Language: Maltese Communication Ability: Effective Interactive Account Manager Required: No Beliefs That Will Affect Care: None Current Living Situation: Alone Current Living Situation Comment: Lives at [facility] Feels Safe at Home: Yes Assistive Devices: Cane, Oxygen - Continuous and Walker Physical Exam Physical Exam: General: A&Ox3. NAD. Cooperative. On BiPAP at time of assessment, nondistressed HEENT: Atraumatic, normocephalic. Pupils equal and reactive to light. Vision and hearing grossly intact Pulm: diminished, scattered bilateral expiratory wheezing symmetrical chest rise. No increased work of breathing. No respiratory distress. Cardiac: RRR, -mrg. Radial pulses intact and symmetrical. Abdominal: Nontender, nondistended, soft. BS present. Extremities: Warm and dry Results & Data Results & Data Vital Signs (Past 12 Hours) Vital Signs Temp Pulse Pulse Resp BP BP Pulse Ox 11/11/23 15:15 72 19 99 11/11/23 14:47 78 20 149/50 H 99 11/11/23 13:11 100 11/11/23 13:08 36.9 C 77 24 152/67 H 100 11/11/23 13:05 96 O2 Del Method O2 Flow Rate FiO2 11/11/23 15:15 40 11/11/23 14:47 Nasal Cannula 3 11/11/23 13:11 Nasal Cannula 4 11/11/23 13:08 Nasal Cannula 4 11/11/23 13:05 Nasal Cannula 4 PG Care Time/CCT Total # of Minutes Spent Total Time Spent with Patient: Total time spent is greater than 50% in coordination of care (as documented) at patient's floor/unit and/or counseling patient: Coding Level of Care Code 77305 INT INP/OBS CARE MIN Diagnoses Acute on chronic respiratory failure with hypoxia and hypercapnia J96.21; J96.22 Macrocytic anemia D53.9 Atrial fibrillation I48.91 Tobacco abuse Z72.0
[2023-11-11 15:31] LABS: Appearance Urine Clear (Clear); Bacteria Urine Automated None Seen (None Seen); Bilirubin Urine Negative (Negative); Blood Urine Negative (Negative); Cast Urine Automated 0-2 /lpf (0-2); Color Urine Yellow; Epithelial Cell Urine Auto 0-2 /hpf (0-2); Glucose Urine UA Negative (Negative); Ketones Urine Negative (Negative); Leukocyte Esterase Urine Trace (Negative); Nitrite Urine Negative (Negative); Protein Urine Negative (Negative); RBC Urine Automated 0-2 /hpf (0-2); Specific Gravity Urine 1.007 (1.000-1.030); Urobilinogen Urine Negative (Negative); WBC Urine Automated 0-5 /hpf (0-5)
[2023-11-11] MEDS ORDERED: ACETAMINOPHEN 325 MG TAB PO PRN (15:41)
[2023-11-11] MEDS ORDERED: POLYETHYLENE (MIRALAX) 17 GM PACK PO PRN (15:41)
[2023-11-11 16:10] LABS: Base Excess VBG 13.4 mEq/L; HCO3 VBG 44 mmol/L; Oxygen Saturation VBG < 60.0 %; PCO2 VBG 87 mmHg (38-50); pH VBG 7.31 (7.36-7.41)
[2023-11-11 16:12] LABS: Ferritin 332.4 ng/ml (8-388)
[2023-11-11 16:21] LABS: Folate (Folic Acid),Ser orPlas 7.11 ng/ml (>5.38)
[2023-11-11 17:29] LABS: Base Excess VBG 12.5 mEq/L; HCO3 VBG 44 mmol/L; Oxygen Saturation VBG < 60.0 %; PCO2 VBG 98 mmHg (38-50); PO2 VBG 23 mmHg; pH VBG 7.26 (7.36-7.41)
[2023-11-11] MEDS: diazePAM 5 MG/ML 10ML VIAL IV ONE (17:59)
[2023-11-11] MEDS: LORazepam 0.5 MG TAB PO PRN (19:42)
[2023-11-11] MEDS: ALBUTEROL 0.083% NEBU SOLN 3 ML VIAL INH PRN (19:52)
[2023-11-11] MEDS: busPIRone 15 MG TAB PO SCH (20:04)
[2023-11-11] MEDS: DOXYCYCLINE HYCLATE 100 MG CAP PO SCH (20:05)
[2023-11-11] MEDS: guaiFENesin 600 MG TABCR PO SCH (20:05)
[2023-11-11] MEDS: QUEtiapine FUMARATE 100 MG TABLET PO SCH (20:06)
[2023-11-11] MEDS: FLUTICASONE/VILANTEROL 100/25MCG 14 PUFFS/INHALER INH SCH (20:12)
[2023-11-11 21:41] LABS: Base Excess VBG 13.8 mEq/L; HCO3 VBG 41 mmol/L; PCO2 VBG 60 mmHg (38-50); PO2 VBG 83 mmHg; pH VBG 7.44 (7.36-7.41)
[2023-11-11 21:52] LABS: Hematocrit (blood only) 28.4 % (42.0-52.0); Hemoglobin 8.5 g/dl (14.0-18.0)
--- NOTE | 2023-11-12 06:04 | Electrocardiogram Report ---
Test Reason : Blood Pressure : */* mmHG Vent. Rate : 78 BPM Atrial Rate : 78 BPM P-R Int : 160 ms QRS Dur : 88 ms QT Int : 346 ms P-R-T Axes : 79 96 71 degrees QTcB Int : 394 ms Sinus rhythm with Premature atrial complexes Rightward axis Borderline ECG When compared with ECG of 20-Oct-2023 14:06, No significant change was found Confirmed by Paul Andersen ([id number]) on 11/12/2023 6:04:25 AM Referred By: REFERRED SELF Confirmed By: Paul Andersen
[2023-11-12 08:05] LABS: Base Excess VBG 15.8 mEq/L; HCO3 VBG 44 mmol/L; Oxygen Saturation VBG 70.3 %; PCO2 VBG 79 mmHg (38-50); PO2 VBG 38 mmHg; pH VBG 7.35 (7.36-7.41)
[2023-11-12 08:11] LABS: Hematocrit (blood only) 26.8 % (42.0-52.0); Hemoglobin 8.5 g/dl (14.0-18.0); Immature Granulocytes # (auto) 0.02 K/uL (0.01-0.20); Immature Granulocytes % (auto) 0.4 %; Lymphocytes # (auto) 0.87 K/uL (1.20-3.40); Lymphocytes % (auto) 17.9 %; Mean Corpuscular Hemoglobin 29.5 pg (25.0-34.0); Mean Corpuscular Hgb Conc 31.7 g/dL (32.0-36.0); Mean Corpuscular Volume 93.1 fL (80.0-100.0); Mean Platelet Volume 10.6 fL (9.4-12.4); Monocytes # (auto) 0.09 K/uL (0.11-0.59); Monocytes % (auto) 1.9 %; Neutrophils # (auto) 3.87 K/uL (1.40-6.50); Neutrophils % (auto) 79.8 %; Platelet Count 315 K/uL (130-400); RDW Coefficient of Variation 15.1 % (11.5-14.5); RDW Standard Deviation 50.9 fL (36.4-46.3); Red Blood Count 2.88 M/uL (4.70-6.10); White Blood Count 4.85 K/ul (4.8-10.8)
[2023-11-12] MEDS: PANTOprazole 40 MG TAB PO SCH (08:12)
[2023-11-12] MEDS: ATORVASTATIN 10 MG TAB PO SCH (08:13)
[2023-11-12] MEDS: methylPREDNISolone 40 MG in SYRINGE 0 ML IV SCH (08:13)
[2023-11-12] MEDS: UMECLIDINIUM BROMIDE 62.5MCG/BLISTER 7 PUFFS/INHALER INH SCH (08:13)
[2023-11-12] MEDS: ALBUT/IPRATROP 3MG/0.5MG NEB 3 ML VIAL NEB SCH (08:18)
[2023-11-12] MEDS: CYANOCOBALAMIN (B-12) 500 MCG TABLET PO SCH (08:22)
[2023-11-12] MEDS: FOLIC ACID 1 MG in SYRINGE 9.8 ML IV SCH (08:52)
[2023-11-12] MEDS ORDERED: methylPREDNISolone 125 MG/2 ML VIAL IV SCH (09:00)
[2023-11-12 10:10] LABS: BUN Creatinine Ratio 23.9 (10-20); Blood Urea Nitrogen 16 mg/dl (6-23); Calcium 9.7 mg/dl (8.6-10.3); Carbon Dioxide > 45 mmol/L (21-32); Chloride 96 mmol/L (98-107); Creatinine Clr Calc Pharmacy 101.4 ml/min; Est GFR (Non-African American) 100.1 ml/min; Glucose 121 mg/dl (70-99(Fasting)); Potassium 4.6 mmol/L (3.5-5.1); Sodium 141 mmol/L (136-145)
[2023-11-12] MEDS ORDERED: SODIUM CHLORIDE 0.65% NA SOLN 45 ML (OCEAN) PRN (10:31)
--- NOTE | 2023-11-12 10:34 | Hospitalist Progress Note ---
Date of Service November 12, 2023 Assessment & Plan (1) Acute on chronic respiratory failure with hypoxia and hypercapnia: Plan: acute component - 2nd COPD exacerbation chronic component - 2nd to severe, baseline COPD is on 4 l NC O2 continuously at home cont steroids, nebs, inhalers, O2, BIPAP at hs for hypercapnia (he is going to try and use it again tonight) cont doxy BID (2) Macrocytic anemia: Plan: fecal occult is negative Fe studies are wnl B12 and folate are normal by lab range, but low-normal, and thus will supplement s/p 1 unit PRBCs since admission H/H acceptable today anemia may be due to presumed lung cancer or it could be due to a primary bone marrow issue +/- nutritional deficiencies no evidence of hemolysis oncology consult requested (3) Atrial fibrillation: Plan: seen during prior hospitalization paroxysmal is in NSR at this time not on anticoagulation -- during prior hospital stay elected NOT to place on anticoagulation due to severe anemia cont tele monitoring (4) Tobacco abuse: Plan: nicoderm patch 7mg/24 hours ordered (5) COPD (chronic obstructive pulmonary disease): Plan: severe, o2 dependent now with exacerbation cont steroids, nebs, pulm toilet respiratory biofire is negative (6) Bipolar disorder: Plan: cont seroquel (7) Right lower lobe lung mass: Plan: 3cm seen on CT chest in September worrisome for lung ca especially in light of anemia, weight loss, etc. oncology consultation requested consider CT a/p to look for distant mets (8) Edema: Plan: check dopplers, r/o DVT (9) Anxiety: Plan: increase buspar from BID to TID dosing cont seroquel HS cont ativan prn Plan DVT prophylaxis: although he has anemia, his fecal occult blood is negative; in light of worry for lung ca he is at high risk of DVT; add heparin SC tomorrow will need PT/OT Admission and Anticipated Discharge Date Admission Date: November 11, 2023 Subjective patient resting comfortably in bed dyspnea and LONG are improved -- certainly no where near his baseline, but improved from yesterday coughing patient reports significant weight loss over the last few months denies any melena or BRBPR was supposed to meet with a glue spreader at his home to complete a living will with his daughter who is in from [place] reports edema of legs for a few months tele overnight wnl offered nicotine patch - he accepts; smoking <1/4 PPD of cigarettes Review of Systems Review of Systems: gen - no fevers cv - no chest pain pulm - cough, congested, dyspnea, LONG, wheezing GI - no abd pain or nausea HENT - nosebleeds off/on at home psych - anxiety Physical Exam Physical Exam: gen - laying in bed, mild tachypnea noted neck - no JVD mouth - MMM skin - generalized pallor heart - RRR, s1 s2, no murmur lungs - diffuse wheezes b/l, mild tachypnea, mild retractions, no rales abd - soft NT ND BS+ ext - trace-1+ edema b/l, pulses 2+ b/l psych - a/o x 3 Results & Data Results & Data Vital Signs (Past 12 Hours) Vital Signs Temp Pulse Pulse Resp BP Pulse Ox O2 Del Method 11/12/23 10:28 78 20 96 Nasal Cannula 11/12/23 08:24 87 26 H 98 Nasal Cannula 11/12/23 07:59 36.6 C 67 19 139/56 L 98 Nasal Cannula 11/12/23 02:30 72 18 99 11/12/23 02:22 36.6 C 65 18 126/59 L 100 Nasal Cannula 11/11/23 23:27 70 11/11/23 22:40 36.9 C 70 16 142/51 H 96 Nasal Cannula O2 Flow Rate FiO2 11/12/23 10:28 4 11/12/23 08:24 4 11/12/23 07:59 2 11/12/23 02:30 40 11/12/23 02:22 4 11/11/23 23:27 11/11/23 22:40 4 Laboratory Results Laboratory Results - last 24 hr 11/12/23 11/12/23 07:47 Unknown WBC 4.85 RBC 2.88 L Hgb 8.5 L Hct 26.8 L MCV 93.1 D MCH 29.5 MCHC 31.7 L D RDW Std Deviation 50.9 H RDW Coeff of Sushila 15.1 H Plt Count 315 MPV 10.6 Immature Gran % (Auto) 0.4 Neut % (Auto) 79.8 Lymph % (Auto) 17.9 [place] % (Auto) 1.9 Eos % (Auto) 0.0 Baso % (Auto) 0.0 Neut # (Auto) 3.87 Lymph # (Auto) 0.87 L [place] # (Auto) 0.09 L Eos # (Auto) 0.00 Baso # (Auto) 0.00 Immature Gran # (Auto) 0.02 VBG pH 7.35 L VBG pCO2 79 H VBG pO2 38 VBG HCO3 44 VBG O2 Saturation 70.3 VBG Base Excess 15.8 Sodium 141 Potassium 4.6 Chloride 96 L Carbon Dioxide > 45 H* Anion Gap TNP BUN 16 Creatinine 0.67 Est Cr Clr Drug Dosing 101.4 Est GFR ( Amer) 116.0 Est GFR (Non-Af Amer) 100.1 BUN/Creatinine Ratio 23.9 H Glucose 121 H Calcium 9.7 Stool Occult Bld Scrn Negative PG Care Time/CCT Total # of Minutes Spent Total Time Spent with Patient: Total time spent is greater than 50% in coordination of care (as documented) at patient's floor/unit and/or counseling patient: Coding Level of Care Code 63855 SUB INP/OBS CARE 3/50MIN Diagnoses Acute on chronic respiratory failure with hypoxia and hypercapnia J96.21; J96.22 Macrocytic anemia D53.9 Atrial fibrillation I48.91 Tobacco abuse Z72.0 COPD (chronic obstructive pulmonary disease) J44.9 COPD type: unspecified COPD Bipolar disorder F31.9 Right lower lobe lung mass R91.8 Edema R60.9 Anxiety F41.9 (5) COPD (chronic obstructive pulmonary disease) COPD type: unspecified COPD Qualified Code(s): J44.9 - Chronic obstructive pulmonary disease, unspecified
[2023-11-12] MEDS: NICOTINE 7 MG/24 HR TDSY TD SCH (11:59)
[2023-11-12] MEDS: busPIRone 15 MG TAB PO SCH (12:59)
--- NOTE | 2023-11-12 15:04 | Ultrasound Report ---
BILATERAL LOWER EXTREMITY VENOUS DOPPLER CLINICAL HISTORY: concern for lung cancer; edema legs; r/o DVT COMPARISON STUDY: No previous studies for comparison. TECHNIQUE: Sonography of the deep venous system of the bilateral lower extremities was performed. Co mpression and augmentation were evaluated. FINDINGS: The bilateral common femoral, superficial femoral and popliteal veins were compressible. A ugmentation was normal. Flow was shown within the deep calf vessels. IMPRESSION: No evidence of deep venous thrombus within the bilateral lower extremities. ACT 112: Negative or not required by law. Electronically signed by: Justin Miller M.D. 11/12/2023 3:03 PM
[2023-11-13 07:25] LABS: Hematocrit (blood only) 26.2 % (42.0-52.0); Hemoglobin 7.9 g/dl (14.0-18.0); Immature Granulocytes # (auto) 0.03 K/uL (0.01-0.20); Immature Granulocytes % (auto) 0.5 %; Lymphocytes # (auto) 0.93 K/uL (1.20-3.40); Mean Corpuscular Hemoglobin 28.4 pg (25.0-34.0); Mean Corpuscular Hgb Conc 30.2 g/dL (32.0-36.0); Mean Corpuscular Volume 94.2 fL (80.0-100.0); Mean Platelet Volume 10.8 fL (9.4-12.4); Monocytes # (auto) 0.24 K/uL (0.11-0.59); Monocytes % (auto) 4.1 %; Neutrophils # (auto) 4.63 K/uL (1.40-6.50); Neutrophils % (auto) 79.4 %; Platelet Count 310 K/uL (130-400); RDW Coefficient of Variation 14.6 % (11.5-14.5); RDW Standard Deviation 50.1 fL (36.4-46.3); Red Blood Count 2.78 M/uL (4.70-6.10); Reticulocyte % 1.73 % (0.50-2.00); White Blood Count 5.83 K/ul (4.8-10.8)
[2023-11-13 07:41] LABS: Polychromasia 1+
[2023-11-13 08:42] LABS: BUN Creatinine Ratio 28.6 (10-20); Calcium 9.5 mg/dl (8.6-10.3); Creatinine Clr Calc Pharmacy 81.4 ml/min; Est GFR (African American) 105.7 ml/min; Est GFR (Non-African American) 91.2 ml/min; Potassium 4.5 mmol/L (3.5-5.1)
--- NOTE | 2023-11-13 13:25 | Hospitalist Progress Note ---
Date of Service November 13, 2023 Assessment & Plan (1) Acute on chronic respiratory failure with hypoxia and hypercapnia: Plan: acute component - 2nd COPD exacerbation chronic component - 2nd to severe, baseline COPD is on 4 l NC O2 continuously at home cont steroids, nebs, inhalers, O2, BIPAP at hs for hypercapnia cont doxy BID can wean solumedrol lasix 20mg po x 1 (2) Anemia: Plan: fecal occult is negative Fe studies are wnl B12 and folate are normal by lab range, but low-normal, and thus will supplement each (folate x 1 month, B12 x 6 months) s/p 1 unit PRBCs since admission H/H acceptable today anemia may be due to presumed lung cancer or nutritional deficiencies or combo of factors no evidence of hemolysis retic count not elevated, t bili wnl, etc. heme/onc consult appreciated nothing specific to do at this time transfuse prn f/u as outpatient (3) Atrial fibrillation: Plan: seen during prior hospitalization paroxysmal is in NSR at this time not on anticoagulation -- during prior hospital stay elected NOT to place on anticoagulation due to severe anemia cont tele monitoring (4) Tobacco abuse: Plan: nicoderm patch 7mg/24 hours ordered (5) COPD (chronic obstructive pulmonary disease): Plan: severe, o2 dependent now with exacerbation cont steroids, nebs, pulm toilet will wean solumedrol to 30mg BID from 40mg BID cont doxy BID respiratory biofire is negative give lasix 20mg po x 1 (6) Bipolar disorder: Plan: cont seroquel (7) Right lower lobe lung mass: Plan: 3cm seen on CT chest in September worrisome for lung ca especially in light of anemia, weight loss, etc. oncology consultation appreciated outpatient PET/CT advised along with biopsy (8) Edema: Plan: venous duplex study negative for DVT b/l lasix 20mg po x 1 likely due to elevated right heart pressures, recent PRBCs, etc (9) Anxiety: Plan: increased buspar from BID to TID dosing with improved symptoms cont seroquel HS cont ativan prn Plan DVT prophylaxis: add heparin SC tomorrow if he stays beyond 11/13 PT eval before d/c to ensure strong enough for home Admission and Anticipated Discharge Date Admission Date: November 11, 2023 Subjective feels better asks if he can go home today cough is minimal dyspnea and LONG are improved no epistaxis eating well -- likes the food here tele stable overnight Review of Systems Review of Systems: gen - no fevers cv - no chest pain GI - upper abd pain when he coughs; no N/V pulm - no significant sputum, baseline wheeze, baseline LONG Physical Exam Physical Exam: gen - laying in bed, looks better today, NAD neck - no JVD mouth - MMM skin - generalized pallor heart - RRR, s1 s2, no murmur lungs - wheezes b/l but improved today; tachypnea and retractions are resolved; no rales abd - soft NT ND BS+ ext - trace edema b/l, pulses 2+ b/l psych - a/o x 3 Results & Data Results & Data Vital Signs (Past 12 Hours) Vital Signs Temp Pulse Pulse Resp BP Pulse Ox O2 Del Method 11/13/23 11:30 36.8 C 61 22 146/62 H 100 Nasal Cannula 11/13/23 11:17 68 20 98 Nasal Cannula 11/13/23 08:00 72 11/13/23 08:00 Nasal Cannula 11/13/23 07:53 36.8 C 79 22 155/56 H 96 Nasal Cannula 11/13/23 07:18 64 22 96 Nasal Cannula 11/13/23 03:19 36.4 C L 53 L 21 153/49 H 99 BiPAP 11/13/23 02:17 85 16 95 O2 Flow Rate FiO2 11/13/23 11:30 4 11/13/23 11:17 4 11/13/23 08:00 11/13/23 08:00 4 11/13/23 07:53 4 11/13/23 07:18 4 11/13/23 03:19 11/13/23 02:17 40 Laboratory Results Laboratory Results - last 24 hr 11/12/23 11/13/23 Unknown 06:45 WBC 5.83 RBC 2.78 L Hgb 7.9 L Hct 26.2 L MCV 94.2 MCH 28.4 MCHC 30.2 L RDW Std Deviation 50.1 H RDW Coeff of Sushila 14.6 H Plt Count 310 MPV 10.8 Immature Gran % (Auto) 0.5 Neut % (Auto) 79.4 Lymph % (Auto) 16.0 [place] % (Auto) 4.1 Eos % (Auto) 0.0 Baso % (Auto) 0.0 Reticulocyte % (Auto) 1.73 Neut # (Auto) 4.63 Lymph # (Auto) 0.93 L [place] # (Auto) 0.24 Eos # (Auto) 0.00 Baso # (Auto) 0.00 Reticulocyte # 0.050 Immature Gran # (Auto) 0.03 Polychromasia 1+ Sodium 141 Potassium 4.5 Chloride 97 L Carbon Dioxide 41 H* Anion Gap 3 BUN 24 H Creatinine 0.84 Est Cr Clr Drug Dosing 81.4 Est GFR ( Amer) 105.7 Est GFR (Non-Af Amer) 91.2 BUN/Creatinine Ratio 28.6 H Glucose 120 H Calcium 9.5 Magnesium 2.0 Stool Occult Bld Scrn Negative PG Care Time/CCT Total # of Minutes Spent Total Time Spent with Patient: Total time spent is greater than 50% in coordination of care (as documented) at patient's floor/unit and/or counseling patient: Coding Level of Care Code 57360 SUB INP/OBS CARE 2/35MIN Diagnoses Acute on chronic respiratory failure with hypoxia and hypercapnia J96.21; J96.22 Anemia D64.9 Atrial fibrillation I48.91 Tobacco abuse Z72.0 COPD (chronic obstructive pulmonary disease) J44.9 COPD type: unspecified COPD Bipolar disorder F31.9 Right lower lobe lung mass R91.8 Edema R60.9 Anxiety F41.9 (5) COPD (chronic obstructive pulmonary disease) COPD type: unspecified COPD Qualified Code(s): J44.9 - Chronic obstructive pulmonary disease, unspecified
[2023-11-13] MEDS: FUROSEMIDE 20 MG TAB PO ONE (13:53)
--- NOTE | 2023-11-13 17:11 | Oncology Consultation ---
Date of Consultation November 13, 2023 Assessment & Plan (1) Macrocytic anemia: transfuse to maintain hemoglobin greater than 7 g/dL, preliminary workup reviewed, no readily correctable factors. He has borderline low B12 level at 301 which can be replaced. Iron indicis were normal, folic acid was normal. Most likely this is anemia of chronic disease. It would be worthwhile to see whether the patient has ever undergone GI workup including upper GI endoscopy or colonoscopy. If not then he could be considered for GI workup I understand that his stool occult blood is negative. I do not see a rationale for bone marrow biopsy at this point given that he has multiple other comorbidities which could be contributing to his anemia. Of note his anemia has been charted as macrocytic however I am mostly see normocytic normochromic anemia which is commonly seen in anemia of chronic disease. WBC count is normal, platelet count is normal. Do not see a rationale for bone marrow biopsy given that only single line of cells is involved. Can consider Melissa testing to rule out hemolytic anemia. However my concern is this is most likely anemia of chronic disease (2) Right lower lobe lung mass: . Again will recommend outpatient workup and follow-up including PET/CT scan and a biopsy as this patient could have lung cancer given the history of smoking. No other when other interventions needed on an inpatient basis. Patient has previously missed appointments in the clinic. Plan Medical oncology will continue to follow the patient, make appropriate recommendations. Thank you for this interesting oncological/hematological consult. History of Present Illness Reason for Consultation: Lung mass macrocytic anemia Attending Physician: Errol Murphy MD History of Present Illness the patient is a very pleasant 68-year-old male with a past history of hyperlipidemia, anxiety, depression, tobacco use, macrocytic anemia, lung mass, COPD on 4 L oxygen who initially came to the hospital because of progressive dyspnea. The patient has been in and out of the hospital multiple times because of progressive dyspnea. On admission to the hospital he was noted to be severely anemic with a hemoglobin of 6.6 g/dL, normocytic, normochromic, he received 2 units of packed red blood cells. A basic hematological workup was performed which revealed serum iron of 35, TIBC of 219, total iron binding capacity of 174, iron saturation of 17%, serum ferritin of 332. Of note his baseline hemoglobin over the last few months has been between 8 to 9 g/dL. Going back to 2021 his hemoglobin was 10.9 g/dL. Hematology has been consulted to assist in management of this patient with multiple medical comorbidities and normocytic normochromic anemia requiring blood transfusion. He was admitted to the hospital a few weeks earlier with shortness of breath at that time a CT scan of the chest was performed on 10/16/2023 which revealed a mass in the right lower lobe, measuring 3 cm. He was evaluated both by oncology and pulmonology and PET/CT was recommended. The patient was set up in the oncology clinic however did not show up for his appointment. Currently he is on the bed, he is comfortable on oxygen at baseline. Allergies Allergy/AdvReac Type Severity Reaction Status Date / Time No Known Allergies Allergy Verified 10/16/23 21:32 Home Medications Medication Instructions Recorded Confirmed Type albuterol sulfate 90 mcg/actuation 2 puff inhalation Q6H PRN 06/19/21 11/11/23 History aerosol inhaler Shortness Of Breath Or Wheezing albuterol sulfate 2.5 mg/3 mL 2.5 mg inhalation QID PRN 05/27/23 11/11/23 History (0.083 %) solution for nebulization Shortness Of Breath Or Wheezing atorvastatin 10 mg tablet (Lipitor) 10 mg PO DAILY 05/27/23 11/11/23 History buspirone 15 mg tablet 15 mg PO BID 05/27/23 11/11/23 History fluticasone 500 mcg-salmeterol 50 1 inh inhalation BID 05/27/23 11/11/23 History mcg/dose blistr powdr for inhalation (Advair Diskus) lanolin alcohols-mineral 1 applic topical BID PRN Dry Skin 05/27/23 11/11/23 History oil-w.petrolatum-ceresin topical cream (Eucerin topical cream) lorazepam 0.5 mg tablet 0.5 mg PO BID PRN Anxiety 05/27/23 11/11/23 History tiotropium bromide 2.5 2 puff inhalation DAILY 05/27/23 11/11/23 History mcg/actuation mist for inhalation (Spiriva Respimat) guaifenesin 600 mg tablet, 1,200 mg (2 x 600 mg) PO Q12 #15 10/22/23 11/11/23 Rx extended release 12 hr (Mucinex) tabs pantoprazole 40 mg tablet,delayed 40 mg PO DAILY #28 tabs 10/22/23 11/11/23 Rx release quetiapine 100 mg tablet 100 mg PO HS #30 tabs 10/22/23 11/11/23 Rx Patient History Medical History Vitamin D deficiency Ventricular premature depolarization Unspecified mood [affective] disorder Nicotine dependence Insomnia Emphysema lung Dependence on supplemental oxygen Anxiety Social History Smoking Status: Current every day smoker Tobacco Type: Cigarettes Tobacco Cessation Education Requested by Patient: No Hx Alcohol Use: No Hx Substance Use: No (Pt denies) Preferred Language: Upper Sorbian Communication Ability: Effective [employer] Off Bearer Required: No Beliefs That Will Affect Care: None Current Living Situation: Alone Current Living Situation Comment: Lives at [facility] Other Information That Helps Us Care for You: No Feels Safe at Home: Yes Safety Concerns: Feels Safe At This Time Assistive Devices: Cane, Oxygen - Continuous and Walker Review of Systems Review of Systems: All systems reviewed & are unremarkable except as noted in HPI & below Fatigue, dyspnea on exertion, chest pain Constitutional: as per Subjective / HPI Eyes: as per Subjective / HPI Ear, Nose, Mouth, Throat: as per Subjective / HPI Respiratory: as per Subjective / HPI Cardiovascular: as per Subjective / HPI Gastrointestinal: as per Subjective / HPI Genitourinary: + as per Subjective / HPI Musculoskeletal: as per Subjective / HPI Integumentary: as per Subjective / HPI Neurologic: as per Subjective / HPI Psychiatric: as per Subjective / HPI Endocrine: as per Subjective / HPI Hematologic / Lymphatic: as per Subjective / HPI Allergy / Immunological: as per Subjective / HPI Physical Exam Constitutional: WD/WN, vitals as above Eyes: PERRL, conjunctivae normal, anicteric sclerae ENMT: external ear and nose normal, oropharynx normal Neck: trachea midline, no thyromegaly Respiratory: normal respiratory effort, lungs clear to auscultation Cardiovascular: RRR, no murmur, no edema Gastrointestinal (Abdomen): normal bowel sounds, soft, nontender, no hepatosplenomegaly Musculoskeletal: no cyanosis or clubbing, extremities motor strength 5/5 Skin: no rashes, warm and dry Neurologic: patellar DTR's 2+ bilat, sensation intact Psychiatric: A+Ox3, euthymic affect Genitourinary: no testicular masses, no penis abnormality Lymphatic: no cervical or axillary lymphadenopathy Results & Data Vital Signs (Past 12 Hours) Vital Signs Temp Pulse Pulse Resp BP Pulse Ox O2 Del Method 11/13/23 15:31 36.9 C 59 L 21 141/58 H 100 Nasal Cannula 11/13/23 15:10 70 18 100 Nasal Cannula 11/13/23 14:43 69 11/13/23 11:30 36.8 C 61 22 146/62 H 100 Nasal Cannula 11/13/23 11:17 68 20 98 Nasal Cannula 11/13/23 08:00 72 11/13/23 08:00 Nasal Cannula 11/13/23 07:53 36.8 C 79 22 155/56 H 96 Nasal Cannula 11/13/23 07:18 64 22 96 Nasal Cannula O2 Flow Rate 11/13/23 15:31 4 11/13/23 15:10 4 11/13/23 14:43 11/13/23 11:30 4 11/13/23 11:17 4 11/13/23 08:00 11/13/23 08:00 4 11/13/23 07:53 4 11/13/23 07:18 4
[2023-11-13] MEDS: methylPREDNISolone 30 MG in SYRINGE 0 ML IV SCH (20:30)
[2023-11-14 06:41] LABS: Hematocrit (blood only) 25.5 % (42.0-52.0); Hemoglobin 7.9 g/dl (14.0-18.0); Immature Granulocytes # (auto) 0.03 K/uL (0.01-0.20); Immature Granulocytes % (auto) 0.5 %; Lymphocytes # (auto) 0.98 K/uL (1.20-3.40); Lymphocytes % (auto) 15.6 %; Mean Corpuscular Hemoglobin 28.8 pg (25.0-34.0); Mean Corpuscular Volume 93.1 fL (80.0-100.0); Mean Platelet Volume 10.8 fL (9.4-12.4); Monocytes # (auto) 0.34 K/uL (0.11-0.59); Monocytes % (auto) 5.4 %; Neutrophils # (auto) 4.92 K/uL (1.40-6.50); Neutrophils % (auto) 78.5 %; Platelet Count 308 K/uL (130-400); RDW Coefficient of Variation 14.5 % (11.5-14.5); RDW Standard Deviation 48.8 fL (36.4-46.3); Red Blood Count 2.74 M/uL (4.70-6.10); White Blood Count 6.27 K/ul (4.8-10.8)
[2023-11-14 07:21] LABS: BUN Creatinine Ratio 30.4 (10-20); Calcium 9.3 mg/dl (8.6-10.3); Creatinine Clr Calc Pharmacy 74.2 ml/min; Est GFR (African American) 100.1 ml/min; Est GFR (Non-African American) 86.4 ml/min; Potassium 4.3 mmol/L (3.5-5.1)
[2023-11-14 07:28] LABS: RBC Morphology Unremarkable
[2023-11-14 11:51] VITALS: BP 163/64; TEMP 99; O2SAT 96
[2023-11-14 15:36] VITALS: PULSE 68; RESP 16
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
== END 2023-11-14 17:33 | disposition home health service (06) | DRG 189 ==
LOC: ED 12:52 → EDINP 15:41 → 2S 15:41 → SUATTDRO 15:41 → 2S 18:45

== ENCOUNTER 2023-12-08 11:08 | Inpatient (IN) ==
--- NOTE | 2023-12-08 11:29 | Emergency Department Note ---
History of Present Illness General Chief complaint: Respiratory Distress Time Seen by Provider: 12/08/23 11:13 History of Present Illness Provider complaint: Right hip pain 68-year-old male presents the emergency department from the PACU for altered mental status and right hip pain. Patient is unable to give an accurate history as he is very confused. According to the PACU nurse who brought the patient over the patient is being sent over here for right hip pain after a fall last night. They state they conducted a CT of the head prior to the procedure and then did a bronchoscopy and then sent the patient here after the procedure. Home Medications Medication Instructions Recorded Confirmed Type albuterol sulfate 90 mcg/actuation 2 puff inhalation Q4H PRN 06/19/21 12/08/23 History aerosol inhaler Shortness Of Breath Or Wheezing albuterol sulfate 2.5 mg/3 mL 2.5 mg inhalation QID PRN 05/27/23 12/08/23 History (0.083 %) solution for nebulization Shortness Of Breath Or Wheezing buspirone 15 mg tablet 15 mg PO BID 05/27/23 12/08/23 History lanolin alcohols-mineral 1 applic topical BID PRN Dry Skin 05/27/23 12/08/23 History oil-w.petrolatum-ceresin topical cream (Eucerin topical cream) guaifenesin 600 mg tablet, 1,200 mg (2 x 600 mg) PO Q12 #15 10/22/23 12/08/23 Rx extended release 12 hr (Mucinex) tabs pantoprazole 40 mg tablet,delayed 40 mg PO DAILY #28 tabs 10/22/23 12/08/23 Rx release Oxygen Home #1 ea 11/14/23 Rx cyanocobalamin (vitamin B-12) 1,000 mcg PO DAILY #30 tabs 11/14/23 12/08/23 Rx 1,000 mcg tablet folic acid 1 mg tablet 1 mg PO DAILY #30 tabs 11/14/23 12/08/23 Rx ipratropium 0.5 mg-albuterol 3 mg 3 ml NEB QID PRN 11/14/23 12/08/23 Rx (2.5 mg base)/3 mL nebulization cough/wheeze/shortness of breath soln #180 mL mupirocin 2 % topical ointment 1 applic topical BID PRN nose 11/14/23 12/08/23 Rx bleed #15 grams ascorbic acid (vitamin C) 500 mg 500 mg PO DAILY 12/08/23 12/08/23 History tablet (Vitamin C) atorvastatin 20 mg tablet 10 mg PO DAILY 12/08/23 12/08/23 History budesonide 160 mcg-glycopyr 9 2 inh inhalation BID 12/08/23 12/08/23 History mcg-formot 4.8 mcg/actuation HFA inhaler (Breztri Aerosphere) docusate sodium 100 mg capsule 100 mg PO DAILY PRN Constipation 12/08/23 12/08/23 History ergocalciferol (vitamin D2) 1,250 1,250 mcg PO 2XWK 12/08/23 12/08/23 History mcg (50,000 unit) capsule (Vitamin D2) ferrous sulfate 325 mg (65 mg 325 mg PO BID 12/08/23 12/08/23 History iron) tablet food supplemt, lactose-reduced 1 ea PO BID 12/08/23 12/08/23 History lorazepam 1 mg tablet 1 mg PO BID PRN Anxiety/Nerves 12/08/23 12/08/23 History naloxone 4 mg/actuation nasal spray 4 mg intranasal ONCE PRN Opioid 12/08/23 12/08/23 History Overdose nicotine 21 mg/24 hr daily 1 patch transdermal DAILY 12/08/23 12/08/23 History transdermal patch quetiapine 400 mg tablet 0 mg PO HS 12/08/23 12/08/23 History Allergies Allergy/AdvReac Type Severity Reaction Status Date / Time No Known Allergies Allergy Verified 12/08/23 05:46 Past Med/Surg History Problem List (Updated 12/08/23 @ 18:52 by Dereck Martinez MD) Endotracheally intubated Status post bronchoscopy Acute on chronic respiratory failure with hypoxia and hypercapnia (Acute) Acute exacerbation of chronic obstructive pulmonary disease (Acute) Fall Medical History History of non-ST elevation myocardial infarction (NSTEMI) 10/2023 [facility] admission, troponin bump in setting of significant illness History of atrial fibrillation New-onset 10/2023 [facility] admission in setting of significant illness, AC held in setting of current severe anemia, no known recurrence Macrocytic anemia Depression with anxiety Bipolar disorder Hyperlipidemia Right lower lobe lung mass COPD (chronic obstructive pulmonary disease) Dependence on supplemental oxygen Per records, ? current status Vitamin D deficiency Ventricular premature depolarization Unspecified mood [affective] disorder Insomnia Emphysema lung Social History Smoking Status: Current every day smoker Tobacco Type: Cigarettes Cigarettes Per Day: 6; Second Hand Exposure: No; Do You Dip or Chew Tobacco: No; Tobacco Cessation Education Requested by Patient: No Hx Alcohol Use: No Hx Substance Use: No Preferred Language: Dominican Communication Ability: Effective Christian [employer] Reader Required: No Beliefs That Will Affect Care: None Current Living Situation: Alone Current Living Situation Comment: Lives at [facility] Other Information That Helps Us Care for You: No Feels Safe at Home: Yes Safety Concerns: Feels Safe At This Time Assistive Devices: Cane and Oxygen - Continuous Physical Exam Vital Signs Vital Signs - 24 hr 12/08/23 11:32 12/08/23 11:47 12/08/23 11:48 Temperature 37 C Temperature Source Oral Pulse Rate 86 86 Pulse Rate [Right Finger] 84 Respiratory Rate 20 27 H 36 H Respiratory Effort / Characteristics Non-Labored Spontaneous Respiratory Depth Shallow Respiratory Pattern Regular Blood Pressure 156/75 H Blood Pressure [Right Arm] 156/77 H Blood Pressure Mean 102 Blood Pressure Mean [Right Arm] 103 Blood Pressure Position Semi-fowlers Pulse Oximetry 93 95 95 Oxygen Delivery Method Nasal Cannula Nasal Cannula Nasal Cannula Oxygen Flow Rate 6 8 6 Fraction of Inspired Oxygen SaO2/FiO2 Ratio Sepsis Recent Fever Within 48 Hours No Sepsis New/Unexplained Change in Mental Status N/A Sepsis Action Taken by Nursing No Action Required End-Tidal CO2 End Tidal CO2 (18-54mmHg) 12/08/23 11:51 12/08/23 11:54 12/08/23 11:57 Temperature Temperature Source Pulse Rate 81 Pulse Rate [Right Finger] 78 Respiratory Rate Respiratory Effort / Characteristics Respiratory Depth Respiratory Pattern Blood Pressure Blood Pressure [Right Arm] 146/53 H Blood Pressure Mean Blood Pressure Mean [Right Arm] 84 Blood Pressure Position Pulse Oximetry 100 100 Oxygen Delivery Method BiPAP BiPAP Oxygen Flow Rate Fraction of Inspired Oxygen SaO2/FiO2 Ratio Sepsis Recent Fever Within 48 Hours Sepsis New/Unexplained Change in Mental Status Sepsis Action Taken by Nursing End-Tidal CO2 End Tidal CO2 (18-54mmHg) 12/08/23 12:03 12/08/23 12:07 12/08/23 12:10 Temperature Temperature Source Pulse Rate Pulse Rate [Right Finger] 78 76 74 Respiratory Rate Respiratory Effort / Characteristics Respiratory Depth Respiratory Pattern Blood Pressure Blood Pressure [Right Arm] 137/98 157/62 H 140/61 Blood Pressure Mean Blood Pressure Mean [Right Arm] 111 93 87 Blood Pressure Position Pulse Oximetry 98 100 Oxygen Delivery Method BiPAP Nebulizer BiPAP BiPAP Oxygen Flow Rate Fraction of Inspired Oxygen SaO2/FiO2 Ratio Sepsis Recent Fever Within 48 Hours Sepsis New/Unexplained Change in Mental Status Sepsis Action Taken by Nursing End-Tidal CO2 End Tidal CO2 (18-54mmHg) 12/08/23 12:21 12/08/23 12:25 12/08/23 12:41 Temperature Temperature Source Pulse Rate Pulse Rate [Right Finger] 86 78 Respiratory Rate 24 24 Respiratory Effort / Characteristics Mechanically Ventilated Respiratory Depth Respiratory Pattern Blood Pressure Blood Pressure [Right Arm] 194/71 H 172/86 H Blood Pressure Mean Blood Pressure Mean [Right Arm] 112 114 Blood Pressure Position Pulse Oximetry 100 100 100 Oxygen Delivery Method Mechanical Vent Mechanical Vent Oxygen Flow Rate Fraction of Inspired Oxygen 50 40 SaO2/FiO2 Ratio 200 Sepsis Recent Fever Within 48 Hours Sepsis New/Unexplained Change in Mental Status Sepsis Action Taken by Nursing End-Tidal CO2 60 End Tidal CO2 (18-54mmHg) 68 Physical Exam GENERAL: Patient is very ill-appearing and appears confused. HENT: Exam performed. - Head: Normocephalic and atraumatic. EYES: Conjunctivae and EOM are normal. Pupils are equal, round, and reactive to light. Right eye exhibits no discharge. Left eye exhibits no discharge. No scleral icterus. NECK: Normal range of motion. Neck supple. No JVD present. No spinous process tenderness present. CV: Normal rate, regular rhythm, normal heart sounds and intact distal pulses. There is no peripheral edema. Palpable radial pulses bue. PULM/CHEST: Expiratory wheezes bilaterally. ABD: The abdomen is soft. NEURO: Patient is very lethargic. He is arousable to loud verbal stimuli. He does appear confused. GCS: 12 (E:3, V:4, M:5) Procedures Intubation sedative: Etomidate Mg Given: 20 paralytic: Succinylcholine Mg Given: 120 Laryngoscope: other (glide scope) ET Tube Size: 7.5 ET Tube Uncuffed: Yes Tube Secured Depth (cm): 25 Tube Secured Location: lips Tube Placement Confirmation: visualized tube passing through cords, equal breath sounds bilaterally, no breath sounds over epigastrium and confirmation by capnometry Patient Tolerated Procedure: well Intubation Complications: none Course Course 1113: The patient was evaluated in room A1. A complete history and physical exam was performed Cardiac monitoring: An order was placed for continuous cardiac monitoring. The monitor shows a rate of 80 with sinus rhythm interpreted by me External medical records reviewed. There is a note from anesthesiology from 718 this morning that read that the patient was being evaluated for bronchoscopy and the last night he had an unwitnessed fall and hit his head. Is unclear whether he had an LOC and unclear whether he stopped his Eliquis. According to the anesthesiologist note, the family stated his level of arousal is lower this morning the normal but there were no focal neurological signs. He was sent for stat CT to rule out an acute bleed from fall prior to proceeding with his surgical procedure. According to the note after the procedure the patient was to go to the ER to be evaluated for his hip pain. There is a CT from 0656 today which was negative. Patient did have a bronchoscopy performed by Dr. Bolanos today. There is a note from 1008 today stating the patient signed consent and a timeout verified with performed prior to the procedure. Procedure was done under general anesthesia with an 8.5 endotracheal tube. 1127: Spoke with commodity industry analyst who performed procedure Dr. Bolanos. Dr. Bolanos states that the patient is a generally unhealthy person and that the family said he was more lethargic than his usual baseline. He states that the patient usually stays in bed all day. He stated prior to perform the bronchoscopy the patient was reporting right hip pain and was more confused. He stated that before the procedure he conducted a CT scan of his head to rule out an ICH and that was normal. He stated he then proceeded with the bronchoscopy and now has sent him to the emergency department for workup of his hip pain. Dr. Bolanos stated that the patient was lethargic but was able to nod his head and was able to consent to the procedure. He stated after the procedure he wanted the patient to come to the ER so he have a medical workup completed including a workup for his hip pain. 1144: Family is at bedside now and states his patient is increasingly somnolent and worse than he was this morning prior to the procedure. Brother and [id number] states that the patient is much worse than he was prior to the procedure. They state he is very very sleepy and cannot converse. Patient's i- STAT shows a bicarb of 44 with glucose of 107. Is thought that the patient is hypercapnic. We will attempt transition to BiPAP and conduct an ABG. Respiratory paged. Samina ordered for the patient. 1156: Patient's ABG [id number] shows a CO2 greater than 110. Spoke with Dr. Dela Cruz who stated that the patient usually is hypercarbic. External medical records were reviewed and based off the patient's previous blood gases in 2023 his CO2 usually runs in the 80s. Given his significant decline mental status according to family as well as his increasing respiratory acidosis we will plan on intubating the patient. 1231: Patient was intubated. See procedure note. Postprocedure chest x-ray showed at the ETT was 6 cm above the ortega. ETT was advanced 3 cm by multi care technician. [facility]. Solu-Medrol 125 ordered for the patient. Patient's family was updated. Administered Medications Albuterol (Albut/Ipratrop 3mg/0.5mg Neb 3 Ml Vial) 3 ml NEB Q6R STAN; Protocol Stop: 01/07/24 13:28 Last Admin: 12/08/23 14:03 Dose: 3 ml Documented By: FAM Propofol (Diprivan) 1,000 mg in 100 mls @ 18.672 mls/hr IV .Q5H22M STAN; Protocol Stop: 12/11/23 12:29 Last Admin: 12/08/23 18:34 Dose: 40 mcg/kg/min, 18.7 mls/hr Documented By: WRZachary Co-signed By: CAM Titration: 12/08/23 18:34 Dose: Infused Documented By: WRS Co-signed By: CAM Titration: 12/08/23 15:42 Dose: 40 mcg/kg/min, 18.7 mls/hr Documented By: Titration: 12/08/23 15:15 Dose: 35 mcg/kg/min, 16.3 mls/hr Documented By: Titration: 12/08/23 14:10 Dose: 30 mcg/kg/min, 14 mls/hr Documented By: Titration: 12/08/23 12:31 Dose: 25 mcg/kg/min, 11.7 mls/hr Documented By: Admin: 12/08/23 12:24 Dose: 20 mcg/kg/min, 9.3 mls/hr Documented By: NRFloridalma Co-signed By: DEBBIE Hardy (Icu Protocol For Hyperglycemia) 1 each N/A ACHS STAN Stop: 12/10/23 16:29 Last Admin: 12/08/23 18:40 Dose: Not Given Documented By: JOAN Propofol (Propofol Bolus From Bag) 20 mg IV Q5M PRN PRN Reason: Sedation Stop: 12/11/23 12:17 Last Admin: 12/08/23 12:37 Dose: 20 mg Documented By: NRFloridalma Co-signed By: WAYNE Discontinued Medications Albuterol (Albut/Ipratrop 3mg/0.5mg Neb 3 Ml Vial) 3 ml NEB NOW STA; Protocol Stop: 12/08/23 11:30 Last Admin: 12/08/23 12:05 Dose: 3 ml Documented By: JOSE Albuterol (Albut/Ipratrop 3mg/0.5mg Neb 3 Ml Vial) 12 ml NEB ONE ONE; Protocol Stop: 12/08/23 11:57 Last Admin: 12/08/23 12:05 Dose: 12 ml Documented By: JOSE Methylprednisolone (Methylprednisolone 125 Mg/2 Ml Vial) 125 mg IV NOW STA Stop: 12/08/23 12:19 Last Admin: 12/08/23 12:28 Dose: 125 mg Documented By: GEOVANY Miscellaneous (Rapid Sequence Induction Bag) Confirm Administered Dose 1 each N/A .STK-MED ONE Stop: 12/08/23 11:47 Last Admin: 12/08/23 12:22 Dose: 1 each Documented By: GEOVANY Propofol (Propofol Iv Emulsion 10 Mg/Ml 100 Ml Vial) Confirm Administered Dose 1,000 mg IV .STK-MED ONE Stop: 12/08/23 12:17 Last Admin: 12/08/23 12:22 Dose: 1,000 mg Documented By: NRFloridalma Co-signed By: DEBBIE Propofol (Propofol Iv Emulsion 10 Mg/Ml 100 Ml Vial) Confirm Administered Dose 1,000 mg IV .STK-MED ONE Stop: 12/08/23 12:18 Last Admin: 12/08/23 12:23 Dose: Not Given Documented By: NRB Critical Care Time Critical Care Time: Yes Total Critical Care Time: 66 I have personally spent greater than 66 minutes of critical care time in the direct management of this patient. This includes bedside care, interpretation of diagnostic studies, and testing, discussion with consultants, patient, and family members, and other required patient management activities. This 66 minutes is in excess of all separately billable procedures. Medical Decision Making Laboratory Data Attestation: I reviewed the patient's lab results. 12/08/23 11:28 12/08/23 11:28 Lab Results 12/08/23 12/08/23 12/08/23 Range/Units 11:28 11:35 11:58 WBC 9.81 (4.8-10.8) K/ul RBC 2.66 L (4.70-6.10) M/uL Hgb 7.7 L (14.0-18.0) g/dl POC Hgb 8.2 L 7.8 L (14.0-18.0) g/dl Hct 27.3 L (42.0-52.0) % POC Hct 24 L 23 L (42-52) % MCV 102.6 H (80.0-100.0) fL MCH 28.9 (25.0-34.0) pg MCHC 28.2 L (32.0-36.0) g/dL RDW Std Deviation 54.5 H (36.4-46.3) fL RDW Coeff of Sushila 14.6 H (11.5-14.5) % Plt Count 237 (130-400) K/uL MPV 10.9 (9.4-12.4) fL Immature Gran % (Auto) 0.3 % Neut % (Auto) 75.6 % Lymph % (Auto) 13.3 % Henderson % (Auto) 9.2 % Eos % (Auto) 1.3 % Baso % (Auto) 0.3 % Neut # (Auto) 7.42 H (1.40-6.50) K/uL Lymph # (Auto) 1.30 (1.20-3.40) K/uL Henderson # (Auto) 0.90 H (0.11-0.59) K/uL Eos # (Auto) 0.13 (0.00-0.50) K/uL Baso # (Auto) 0.03 (0.00-0.20) K/uL Immature Gran # (Auto) 0.03 (0.01-0.20) K/uL Polychromasia 1+ Hypochromasia Present Stomatocytes 2+ PT 10.1 (9.0-12.0) Seconds INR 0.9 (0.9-1.1) APTT 25 (21-31) Seconds PTT Ratio 0.9 Specimen Type Arterial POC pH 7.21 L (7.35-7.45) POC pCO2 114 H (35-46) mmHg POC pO2 111 H (80-95) mmHg POC HCO3 46 H (19-24) yanely/L POC Base Excess 18.0 H (-9-1.8) yanely/L POC ABG O2 Sat 96.0 H (90-95) % VBG pH 7.27 L (7.36-7.41) VBG pCO2 103 H (38-50) mmHg VBG pO2 40 mmHg VBG HCO3 47 mmol/L VBG O2 Saturation 71.7 % VBG Base Excess 15.4 mEq/L POC Sodium 142 140 (135-144) mmol/L Sodium 143 (136-145) mmol/L POC Potassium 4.4 4.3 (3.3-5.0) mmol/L Potassium 4.5 (3.5-5.1) mmol/L POC Chloride 93 L (101-112) mmol/L Chloride 96 L (98-107) mmol/L Carbon Dioxide > 45 H* (21-32) mmol/L POC Total CO2 44 H* 49 H* (24-31) mmol/L Anion Gap TNP POC Anion Gap 11.0 L (16-25) mmol/L POC BUN 15 (7-18) mg/dl BUN 15 (6-23) mg/dl Creatinine 0.82 (0.6-1.4) mg/dl POC Creatinine 1.0 (0.6-1.3) mg/dl Est Cr Clr Drug Dosing 85.7 ml/min eGFR 96.88 BUN/Creatinine Ratio 18.3 (10-20) Glucose 107 H (70-99(Fasting)) mg/dl POC Glucose (other) 107 H (70-99) mg/dl Calcium 9.6 (8.6-10.3) mg/dl POC Ioniz Calcium Leland 1.27 (1.12-1.32) mmol/l Magnesium 2.1 (1.7-2.4) mg/dl Total Bilirubin 0.4 (0.2-1.0) mg/dl Direct Bilirubin 0.1 (0-0.2) mg/dl AST 12 L (13-39) U/L ALT 10 (7-52) U/L Alkaline Phosphatase 123 H (34-104) U/L Ammonia 38.0 (18-72) umol/L Troponin I High Sens 40.7 H (0-20) pg/ml Total Protein 6.5 (6.0-8.3) gm/dl Albumin 3.7 (3.4-5.0) gm/dl Lipase 15 (11-82) U/L Ethyl Alcohol mg/dL < 10.0 (<10.0) mg/dl Imaging Data Attestation: I personally reviewed and interpreted this imaging study as follows: My Impression: Chest x-ray #1: Cardiomegaly with likely pulmonary mass. Chest x-ray #2: ET tube 6 cm above ortega. Radiologist's Impression: Chest X-Ray 12/08/23 11:22 XR chest 1V portable HISTORY: 68 years-old Male sob acute shortness of breath COMPARISON: Chest radiograph 12/08/2023, chest CT 12/07/2023 TECHNIQUE: AP view of the chest FINDINGS: Cardiac silhouette is enlarged. Pulmonary vascular congestion. No pneumothorax, pleural effusion or overt pulmonary edema. Emphysema with chronic interstitial coarsening. 2.7 cm right lower lobe lesion is partially obscured by mildly progressed right basilar consolidation. Ill-defined nodular foci of the upper lung zones again seen. Bones appear grossly intact. IMPRESSION: 1. Emphysema with reticulonodular opacities redemonstrated, likely infectious or inflammatory. 2. Right lower lobe lesion better seen on comparison chest CT. 3. Mild progressed right basilar consolidation. ACT 112: Negative or not required by law. The above report was generated using voice recognition software. It may contain grammatical, syntax or spelling errors. Electronically signed by: Roc Sequeira M.D. 12/08/2023 12:40 PM Pelvis X-Ray 12/08/23 11:22 XR pelvis 1-2V routine HISTORY: 68 years-old Male R hip pain acute pain of the right hip status post fall COMPARISON: Head CT 11/25/2023 TECHNIQUE: AP view of the pelvis FINDINGS: Moderate osteoarthritis of the hips. No acute fracture, dislocation, avascular necrosis or destructive bone lesion. Unremarkable soft tissues. IMPRESSION: No acute fracture. ACT 112: Negative or not required by law. The above report was generated using voice recognition software. It may contain grammatical, syntax or spelling errors. Electronically signed by: Roc Sequeira M.D. 12/08/2023 12:43 PM Chest X-Ray 12/08/23 12:16 XR chest 1V portable CLINICAL HISTORY: Endotracheal tube placement. COMPARISON STUDY: Chest CT December 07, 2023. Chest radiograph performed earlier today. FINDINGS: The tip of the endotracheal tube is 5 cm above the ortega. There is no pneumothorax or pleural effusion. Cardiomegaly is unchanged. There is pulmonary vascular congestion. Right lower lobe mass is better depicted on CT of December 07, 2023. Scattered irregular densities within the lungs persist. IMPRESSION: 1. Tip of endotracheal tube 5 cm above the ortega. 2. No pneumothorax. 3. Redemonstration of a right lower lobe mass and scattered irregular densities throughout the lungs. 3. Stable cardiomegaly. Pulmonary vascular congestion. ACT 112: Negative or not required by law. Electronically signed by: Justin Miller M.D. 12/08/2023 12:46 PM ECG Data Attestation: I personally reviewed and interpreted this ECG as follows: Rate (beats per minute): 81 Rhythm: + normal sinus ECG Intervals/blocks: + Normal QRS, + Normal IA and + Normal QT-c ECG ST segments: + Normal ST segments ECG Findings: + PVCs MDM Narrative 1113: The patient was evaluated in room A1. A complete history and physical exam was performed Cardiac monitoring: An order was placed for continuous cardiac monitoring. The monitor shows a rate of 80 with sinus rhythm interpreted by me External medical records reviewed. There is a note from anesthesiology from 718 this morning that read that the patient was being evaluated for bronchoscopy and the last night he had an unwitnessed fall and hit his head. Is unclear whether he had an LOC and unclear whether he stopped his Eliquis. According to the anesthesiologist note, the family stated his level of arousal is lower this morning the normal but there were no focal neurological signs. He was sent for stat CT to rule out an acute bleed from fall prior to proceeding with his surgical procedure. According to the note after the procedure the patient was to go to the ER to be evaluated for his hip pain. There is a CT from 0656 today which was negative. Patient did have a bronchoscopy performed by Dr. Bolanos today. There is a note from 100 today stating the patient signed consent and a timeout verified with performed prior to the procedure. Procedure was done under general anesthesia with an 8.5 endotracheal tube. 1127: Spoke with commodity industry analyst who performed procedure Dr. Bolanos. Dr. Bolanos states that the patient is a generally unhealthy person and that the family said he was more lethargic than his usual baseline. He states that the patient usually stays in bed all day. He stated prior to perform the bronchoscopy the patient was reporting right hip pain and was more confused. He stated that before the procedure he conducted a CT scan of his head to rule out an ICH and that was normal. He stated he then proceeded with the bronchoscopy and now has sent him to the emergency department for workup of his hip pain. Dr. Bolanos stated that the patient was lethargic but was able to nod his head and was able to consent to the procedure. He stated after the procedure he wanted the patient to come to the ER so he have a medical workup completed including a workup for his hip pain. 1144: Family is at bedside now and states his patient is increasingly somnolent and worse than he was this morning prior to the procedure. Brother and [id number] states that the patient is much worse than he was prior to the procedure. They state he is very very sleepy and cannot converse. Patient's i- STAT shows a bicarb of 44 with glucose of 107. Is thought that the patient is hypercapnic. We will attempt transition to BiPAP and conduct an ABG. Respiratory paged. Samina ordered for the patient. 1156: Patient's ABG [id number] shows a CO2 greater than 110. Spoke with Dr. Dela Cruz who stated that the patient usually is hypercarbic. External medical records were reviewed and based off the patient's previous blood gases in 2023 his CO2 usually runs in the 80s. Given his significant decline mental status according to family as well as his increasing respiratory acidosis we will plan on intubating the patient. 1231: Patient was intubated. See procedure note. Postprocedure chest x-ray showed at the ETT was 6 cm above the ortega. ETT was advanced 3 cm by multi care technician. [facility] So[facility]. Solu-Medrol 125 ordered for the patient. Patient's family was updated. Impression & Plan Acute on chronic respiratory failure with hypoxia and hypercapnia Discharge Plan Visit Data Chief Complaint: Respiratory Distress ED Provider: Dereck Martinez Discharge Problem: Acute on chronic respiratory failure with hypoxia and hypercapnia Patient Disposition: Admitted As Inpatient Discharge Instructions Interventions: ED Discharge Assessment Last Done: 12/08/23 13:24
[2023-12-08 11:48] LABS: iSTAT Hemoglobin 8.2 g/dl (14.0-18.0); iSTAT Ionized Calcium 1.27 mmol/l (1.12-1.32); iSTAT Potassium 4.4 mmol/L (3.3-5.0)
[2023-12-08 11:49] LABS: Base Excess VBG 15.4 mEq/L; HCO3 VBG 47 mmol/L; Oxygen Saturation VBG 71.7 %; PCO2 VBG 103 mmHg (38-50); PO2 VBG 40 mmHg; pH VBG 7.27 (7.36-7.41)
[2023-12-08] MEDS: ALBUT/IPRATROP 3MG/0.5MG NEB 3 ML VIAL NEB ONE (12:05)
[2023-12-08] MEDS: ALBUT/IPRATROP 3MG/0.5MG NEB 3 ML VIAL NEB STA (12:05)
[2023-12-08 12:13] LABS: Basophils # (auto) 0.03 K/uL (0.00-0.20); Basophils % (auto) 0.3 %; Eosinophils # (auto) 0.13 K/uL (0.00-0.50); Eosinophils % (auto) 1.3 %; Hematocrit (blood only) 27.3 % (42.0-52.0); Hemoglobin 7.7 g/dl (14.0-18.0); Hypochromasia Present; Immature Granulocytes # (auto) 0.03 K/uL (0.01-0.20); Immature Granulocytes % (auto) 0.3 %; Lymphocytes % (auto) 13.3 %; Mean Corpuscular Hemoglobin 28.9 pg (25.0-34.0); Mean Corpuscular Hgb Conc 28.2 g/dL (32.0-36.0); Mean Corpuscular Volume 102.6 fL (80.0-100.0); Mean Platelet Volume 10.9 fL (9.4-12.4); Monocytes % (auto) 9.2 %; Neutrophils # (auto) 7.42 K/uL (1.40-6.50); Neutrophils % (auto) 75.6 %; Platelet Count 237 K/uL (130-400); Polychromasia 1+; RDW Coefficient of Variation 14.6 % (11.5-14.5); RDW Standard Deviation 54.5 fL (36.4-46.3); Red Blood Count 2.66 M/uL (4.70-6.10); Stomatocytes 2+; White Blood Count 9.81 K/ul (4.8-10.8)
[2023-12-08] MEDS ORDERED: STAT IV Infusion **Titration per Protocol STA ×2 (12:18→20:45)
[2023-12-08 12:19] LABS: INR 0.9 (0.9-1.1); Partial Thromboplastin Ratio 0.9; Partial Thromboplastin Time 25 Seconds (21-31); Prothrombin Time 10.1 Seconds (9.0-12.0)
[2023-12-08 12:20] LABS: Alanine Aminotransferase 10 U/L (7-52); Albumin Level 3.7 gm/dl (3.4-5.0); Alkaline Phosphatase 123 U/L (34-104); Aspartate Aminotransferase 12 U/L (13-39); BUN Creatinine Ratio 18.3 (10-20); Bilirubin Direct 0.1 mg/dl (0-0.2); Bilirubin,Total 0.4 mg/dl (0.2-1.0); Blood Urea Nitrogen 15 mg/dl (6-23); Calcium 9.6 mg/dl (8.6-10.3); Carbon Dioxide > 45 mmol/L (21-32); Chloride 96 mmol/L (98-107); Creatinine Clr Calc Pharmacy 85.7 ml/min; Glucose 107 mg/dl (70-99(Fasting)); Lipase 15 U/L (11-82); Magnesium 2.1 mg/dl (1.7-2.4); Potassium 4.5 mmol/L (3.5-5.1); Sodium 143 mmol/L (136-145); Total Protein 6.5 gm/dl (6.0-8.3); Troponin I High Sensitivity 40.7 pg/ml (0-20)
[2023-12-08] MEDS: PROPOFOL IV EMULSION 10 MG/ML 100 ML VIAL IV ONE ×2 (12:22→12:23)
[2023-12-08] MEDS: RAPID SEQUENCE INDUCTION BAG ONE (12:22)
[2023-12-08] MEDS: propofoL 1,000 MG/100 ML VIAL IV SCH (12:24)
[2023-12-08] MEDS: methylPREDNISolone 125 MG/2 ML VIAL IV STA (12:28)
[2023-12-08] MEDS: PROPOFOL BOLUS FROM BAG IV PRN (12:37)
--- NOTE | 2023-12-08 12:41 | XRay Report ---
XR chest 1V portable HISTORY: 68 years-old Male sob acute shortness of breath COMPARISON: Chest radiograph 12/08/2023, chest CT 12/07/2023 TECHNIQUE: AP view of the chest FINDINGS: Cardiac silhouette is enlarged. Pulmonary vascular congestion. No pneumothorax, pleural effusion or o vert pulmonary edema. Emphysema with chronic interstitial coarsening. 2.7 cm right lower lobe lesion is partially obscured by mildly progressed right basilar consolidation. Ill-defined nodular foci of t he upper lung zones again seen. Bones appear grossly intact. IMPRESSION: 1. Emphysema with reticulonodular opacities redemonstrated, likely infectious or inflammatory. 2. Right lower lobe lesion better seen on comparison chest CT. 3. Mild progressed right basilar consolidation. ACT 112: Negative or not required by law. The above report was generated using voice recognition software. It may contain grammatical, syntax o r spelling errors. Electronically signed by: Roc Sequeira M.D. 12/08/2023 12:40 PM
--- NOTE | 2023-12-08 12:45 | History & Physical Report ---
Date of Service December 08, 2023 Assessment & Plan (1) Acute exacerbation of chronic obstructive pulmonary disease: Plan: Solu-medrol 125mg IV, Duoneb q6h Antibiotics and further steroids deferred to ICU team (2) Acute on chronic respiratory failure with hypoxia and hypercapnia: Plan: Currently intubated and sedated Ongoing management per ICU team (3) Status post bronchoscopy: Plan: Follow up pathology (4) Macrocytic anemia: Plan: At baseline from prior admission - suspected anemia of chronic disease Monitor CBC Plan VTE Prophylaxis - deferred to ICU team Diet - NPO Disposition - admit to ICU Admission and Anticipated Discharge Date Admission Date: December 08, 2023 History of Present Illness Chief Complaint: Altered mental state Fall Primary Care Provider: Ce Cano Maxime Chamberlain is a 68 year old male who presents to the ER due to lethargy and fall following bronchoscopy earlier today. Unable to get any history from the patient as he is intubated and sedated at time of seeing. History obtained from ER provider, notes from pulmonology, anesthesiology and brother at bedside. He reportedly fell last night possibly tripping over his walker. Fall was unwitnessed as he lives alone. Unknown if loss of consciousness. CT head obtained prior to bronchoscopy which did not show intracranial hemorrhage. Brother noted he was lethargic and confused prior to bronchoscopy getting worse throughout the morning. He underwent bronchoscopy and was sent to the ER afterwards to have workup such has a hip XR to assess for fracture. In the ER he was noted to be confused and lethargic. ABG showed respiratory acidosis with acute on chronic hypercapnia. He did not improve on BiPAP and was subsequently intubated and referred to medicine for admission. He was noted to be very wheezy on exam and given Solu-medrol and an hour long duoneb. Allergies Allergy/AdvReac Type Severity Reaction Status Date / Time No Known Allergies Allergy Verified 12/08/23 05:46 Home Medications Medication Instructions Recorded Confirmed Type albuterol sulfate 90 mcg/actuation 2 puff inhalation Q4H PRN 06/19/21 12/08/23 History aerosol inhaler Shortness Of Breath Or Wheezing albuterol sulfate 2.5 mg/3 mL 2.5 mg inhalation QID PRN 05/27/23 12/08/23 His tory (0.083 %) solution for nebulization Shortness Of Breath Or Wheezing buspirone 15 mg tablet 15 mg PO BID 05/27/23 12/08/23 History lanolin alcohols-mineral 1 applic topical BID PRN Dry Skin 05/27/23 12/08/23 History oil-w.petrolatum-ceresin topical cream (Eucerin topical cream) guaifenesin 600 mg tablet, 1,200 mg (2 x 600 mg) PO Q12 #15 10/22/23 12/08/23 Rx extended release 12 hr (Mucinex) tabs pantoprazole 40 mg tablet,delayed 40 mg PO DAILY #28 tabs 10/22/23 12/08/23 Rx release Oxygen Home #1 ea 11/14/23 Rx cyanocobalamin (vitamin B-12) 1,000 mcg PO DAILY #30 tabs 11/14/23 12/08/23 Rx 1,000 mcg tablet folic acid 1 mg tablet 1 mg PO DAILY #30 tabs 11/14/23 12/08/23 Rx ipratropium 0.5 mg-albuterol 3 mg 3 ml NEB QID PRN 11/14/23 12/08/23 Rx (2.5 mg base)/3 mL nebulization cough/wheeze/shortness of breath soln #180 mL mupirocin 2 % topical ointment 1 applic topical BID PRN nose 11/14/23 12/08/23 Rx bleed #15 grams ascorbic acid (vitamin C) 500 mg 500 mg PO DAILY 12/08/23 12/08/23 History tablet (Vitamin C) atorvastatin 20 mg tablet 10 mg PO DAILY 12/08/23 12/08/23 History budesonide 160 mcg-glycopyr 9 2 inh inhalation BID 12/08/23 12/08/23 History mcg-formot 4.8 mcg/actuation HFA inhaler (Breztri Aerosphere) docusate sodium 100 mg capsule 100 mg PO DAILY PRN Constipation 12/08/23 12/08/23 History ergocalciferol (vitamin D2) 1,250 1,250 mcg PO 2XWK 12/08/23 12/08/23 History mcg (50,000 unit) capsule (Vitamin D2) ferrous sulfate 325 mg (65 mg 325 mg PO BID 12/08/23 12/08/23 History iron) tablet food supplemt, lactose-reduced 1 ea PO BID 12/08/23 12/08/23 History lorazepam 1 mg tablet 1 mg PO BID PRN Anxiety/Nerves 12/08/23 12/08/23 History naloxone 4 mg/actuation nasal spray 4 mg intranasal ONCE PRN Opioid 12/08/23 12/08/23 History Overdose nicotine 21 mg/24 hr daily 1 patch transdermal DAILY 12/08/23 12/08/23 History transdermal patch quetiapine 400 mg tablet 0 mg PO HS 12/08/23 12/08/23 History Past Med/Surg History Problem List (Updated 12/08/23 @ 18:52 by Dereck Martinez MD) Endotracheally intubated Status post bronchoscopy Acute on chronic respiratory failure with hypoxia and hypercapnia (Acute) Acute exacerbation of chronic obstructive pulmonary disease (Acute) Fall Medical History History of non-ST elevation myocardial infarction (NSTEMI) 10/2023 [facility] admission, troponin bump in setting of significant illness History of atrial fibrillation New-onset 10/2023 [facility] admission in setting of significant illness, AC held in setting of current severe anemia, no known recurrence Macrocytic anemia Depression with anxiety Bipolar disorder Hyperlipidemia Right lower lobe lung mass COPD (chronic obstructive pulmonary disease) Dependence on supplemental oxygen Per records, ? current status Vitamin D deficiency Ventricular premature depolarization Unspecified mood [affective] disorder Insomnia Emphysema lung Social History Smoking Status: Current every day smoker Tobacco Type: Cigarettes Cigarettes Per Day: 6; Second Hand Exposure: No; Do You Dip or Chew Tobacco: No; Tobacco Cessation Education Requested by Patient: No Hx Alcohol Use: No Hx Substance Use: No Preferred Language: French Communication Ability: Effective Systems Integration Analyst Required: No Beliefs That Will Affect Care: None Current Living Situation: Alone Current Living Situation Comment: Lives at [facility] Other Information That Helps Us Care for You: No Feels Safe at Home: Yes Safety Concerns: Feels Safe At This Time Assistive Devices: Cane and Oxygen - Continuous Review of Systems Review of Systems: Unobtainable due to endotracheal tube Physical Exam Constitutional: well developed; + not well nourished and no acute distress Eyes: PERRL, conjunctivae normal, anicteric sclerae ENMT: Intubated with significant output through OG tube Respiratory: normal respiratory effort (intubated and sedated) Auscultation: + wheezes (inspiratory and expiratory throughout) Cardiovascular: Rate/Rhythm: regular rate and regular rhythm Heart Sounds: no murmur Extremities: no pedal edema Gastrointestinal (Abdomen): Percussion/Palpation: abdomen soft; no guarding Skin: no rashes, warm and dry Neurologic: + not awake Results & Data Results & Data Vital Signs (Past 12 Hours) Vital Signs Temp Pulse Pulse Resp BP BP Pulse Ox 12/08/23 12:25 78 24 172/86 H 100 12/08/23 12:21 86 24 194/71 H 100 12/08/23 12:10 74 140/61 12/08/23 12:07 76 157/62 H 100 12/08/23 12:03 78 137/98 98 12/08/23 11:57 78 146/53 H 100 12/08/23 11:54 100 12/08/23 11:51 81 12/08/23 11:48 84 36 H 156/77 H 95 12/08/23 11:47 86 27 H 95 12/08/23 11:32 37 C 86 20 156/75 H 93 O2 Del Method O2 Flow Rate FiO2 12/08/23 12:25 Mechanical Vent 50 12/08/23 12:21 Mechanical Vent 12/08/23 12:10 BiPAP 12/08/23 12:07 BiPAP 12/08/23 12:03 BiPAP, Nebulizer 12/08/23 11:57 BiPAP 12/08/23 11:54 BiPAP 12/08/23 11:51 12/08/23 11:48 Nasal Cannula 6 12/08/23 11:47 Nasal Cannula 8 12/08/23 11:32 Nasal Cannula 6 Laboratory Results Abnormal lab results 12/08/23 12/08/23 Range/Units 11:28 11:35 RBC 2.66 L (4.70-6.10) M/uL Hgb 7.7 L (14.0-18.0) g/dl POC Hgb 8.2 L (14.0-18.0) g/dl Hct 27.3 L (42.0-52.0) % POC Hct 24 L (42-52) % MCV 102.6 H (80.0-100.0) fL MCHC 28.2 L (32.0-36.0) g/dL RDW Std Deviation 54.5 H (36.4-46.3) fL RDW Coeff of Sushila 14.6 H (11.5-14.5) % Neut # (Auto) 7.42 H (1.40-6.50) K/uL [place] # (Auto) 0.90 H (0.11-0.59) K/uL VBG pH 7.27 L (7.36-7.41) VBG pCO2 103 H (38-50) mmHg POC Chloride 93 L (101-112) mmol/L Chloride 96 L (98-107) mmol/L Carbon Dioxide > 45 H* (21-32) mmol/L POC Total CO2 44 H* (24-31) mmol/L POC Anion Gap 11.0 L (16-25) mmol/L Glucose 107 H (70-99(Fasting)) mg/dl POC Glucose (other) 107 H (70-99) mg/dl AST 12 L (13-39) U/L Alkaline Phosphatase 123 H (34-104) U/L Troponin I High Sens 40.7 H (0-20) pg/ml Diagnostic Findings XR chest 1V portable CLINICAL HISTORY: Endotracheal tube placement. COMPARISON STUDY: Chest CT December 07, 2023. Chest radiograph performed earlier today. FINDINGS: The tip of the endotracheal tube is 5 cm above the ortega. There is no pneumothorax or pleural effusion. Cardiomegaly is unchanged. There is pulmonary vascular congestion. Right lower lobe mass is better depicted on CT of December 07, 2023. Scattered irregular densities within the lungs persist. IMPRESSION: 1. Tip of endotracheal tube 5 cm above the ortega. 2. No pneumothorax. 3. Redemonstration of a right lower lobe mass and scattered irregular densities throughout the lungs. 3. Stable cardiomegaly. Pulmonary vascular congestion. XR pelvis 1-2V routine HISTORY: 68 years-old Male R hip pain acute pain of the right hip status post fall COMPARISON: Head CT 11/25/2023 TECHNIQUE: AP view of the pelvis FINDINGS: Moderate osteoarthritis of the hips. No acute fracture, dislocation, avascular necrosis or destructive bone lesion. Unremarkable soft tissues. IMPRESSION: No acute fracture. Medications Administered ER Medications Given: Propofol IV drip Duoneb 3ml Duoneb 12ml Solu-medrol 125mg IV ECG Rate (beats per minute): 78 Rhythm: normal sinus Findings: + PVC Comparison ECG Date: from (T wave peaking) Change: no significant change Code Status & VTE Plan Code Status Full - presumed from prior admission VTE Prophylaxis Plan VTE Prophylaxis will be ordered: Yes PG Care Time/CCT Total # of Minutes Spent Total Time Spent with Patient: Total time spent is greater than 50% in coordination of care (as documented) at patient's floor/unit and/or counseling patient: Coding Level of Care Code 68575 INT INP/OBS CARE 375MIN Diagnoses Acute exacerbation of chronic obstructive pulmonary disease J44.1 Acute on chronic respiratory failure with hypoxia and hypercapnia J96.21; J96.22 Status post bronchoscopy Z98.890 Macrocytic anemia D53.9
--- NOTE | 2023-12-08 12:45 | XRay Report ---
XR pelvis 1-2V routine HISTORY: 68 years-old Male R hip pain acute pain of the right hip status post fall COMPARISON: Head CT 11/25/2023 TECHNIQUE: AP view of the pelvis FINDINGS: Moderate osteoarthritis of the hips. No acute fracture, dislocation, avascular necrosis or destructiv e bone lesion. Unremarkable soft tissues. IMPRESSION: No acute fracture. ACT 112: Negative or not required by law. The above report was generated using voice recognition software. It may contain grammatical, syntax o r spelling errors. Electronically signed by: Roc Sequeira M.D. 12/08/2023 12:43 PM
--- NOTE | 2023-12-08 12:47 | XRay Report ---
XR chest 1V portable CLINICAL HISTORY: Endotracheal tube placement. COMPARISON STUDY: Chest CT December 07, 2023. Chest radiograph performed earlier today. FINDINGS: The tip of the endotracheal tube is 5 cm above the ortega. There is no pneumothorax or pleu ral effusion. Cardiomegaly is unchanged. There is pulmonary vascular congestion. Right lower lobe mas s is better depicted on CT of December 07, 2023. Scattered irregular densities within the lungs persis t. IMPRESSION: 1. Tip of endotracheal tube 5 cm above the ortega. 2. No pneumothorax. 3. Redemonstration of a right lower lobe mass and scattered irregular densities throughout the lungs. 3. Stable cardiomegaly. Pulmonary vascular congestion. ACT 112: Negative or not required by law. Electronically signed by: Justin Miller M.D. 12/08/2023 12:46 PM
[2023-12-08 14:01] LABS: iSTAT Arterial Blood Gas HCO3 46 meg/L (19-24); iSTAT Arterial Blood Gas pCO2 114 mmHg (35-46); iSTAT Arterial Blood Gas pH 7.21 (7.35-7.45); iSTAT Arterial Blood Gas pO2 111 mmHg (80-95); iSTAT Carbon Dioxide 49 mmol/L (24-31); iSTAT Hematocrit 23 % (42-52); iSTAT Hemoglobin 7.8 g/dl (14.0-18.0); iSTAT Potassium 4.3 mmol/L (3.3-5.0); iSTAT Sample Type Arterial; iSTAT Sodium 140 mmol/L (135-144)
[2023-12-08] MEDS: ALBUT/IPRATROP 3MG/0.5MG NEB 3 ML VIAL NEB SCH (14:03)
[2023-12-08 14:27] LABS: iSTAT Allen Test Pass; iSTAT Art Bld Gas pCO2 Correct 73 mmHg (35-46); iSTAT Art Bld Gas pH Corrected 7.393 (7.35-7.45); iSTAT Arterial Blood Gas HCO3 45 meg/L (19-24); iSTAT Arterial Blood Gas pCO2 74 mmHg (35-46); iSTAT Arterial Blood Gas pH 7.39 (7.35-7.45); iSTAT Arterial Blood Gas pO2 56 mmHg (80-95); iSTAT Arterial Blood Gas pO2 C 56; iSTAT Carbon Dioxide 47 mmol/L (24-31); iSTAT FiO2 50 %; iSTAT Hematocrit 21 % (42-52); iSTAT Hemoglobin 7.1 g/dl (14.0-18.0); iSTAT Potassium 4.4 mmol/L (3.3-5.0); iSTAT Sample Type Arterial; iSTAT Site R Radial; iSTAT Sodium 140 mmol/L (135-144); iSTAT SpO2 50
[2023-12-08] MEDS ORDERED: ETOMIDATE 2 MG/ML 20 ML VIAL IV ONE (15:29)
[2023-12-08] MEDS ORDERED: SUCCINYLCHOLINE CHLORIDE 20 MG/ML 10 ML VIAL IV ONE (15:29)
--- NOTE | 2023-12-08 15:38 | Critical Care Consultation ---
Date of Consultation December 08, 2023 Assessment & Plan (1) Acute on chronic respiratory failure with hypoxia and hypercapnia: (2) Status post bronchoscopy: (3) Endotracheally intubated: Plan 68-year-old male with a history of tobacco abuse, COPD, multiple lung nodules and chronic hypercapnic respiratory failure who is presenting to the ICU due to acute hypercapnic respiratory failure status post bronchoscopy. Neurologic: Maintain RASS of -1. Patient currently on propofol. Will wean sedation daily and perform daily spontaneous awakening trials. CT head completed earlier today without acute findings. Patient will likely need MRI of the brain to evaluate for metastatic disease. Pulmonary: Continue lung protective ventilation strategy. Adjustments made to the ventilator with improvement in patient's acid-base status. Patient with evidence of chronic hypercapnia and compensatory metabolic alkalosis. Once patient is ready for extubation, will likely extubate to BiPAP directly. No evidence of pneumonia at this time. Biopsy results highly suspicious for lung cancer with final pathology pending. PET scan from 11/25/2023 revealed a hypermetabolic 2.7 cm lesion in the posterior basal segment of the right lower lobe with an SUV max of 7.3 and numerous mildly hypermetabolic subsolid lesions within the bilateral upper lobes. Patient on 4 L of oxygen chronically. Cardiovascular: Troponin mildly elevated likely due to demand ischemia. Will trend troponins. Echo 10/17/23 with G1DD. Normal LV function. EKG now. History of paroxysmal A- fib. Not on anticoagulation due to severe anemia. Monitor on telemetry. Gastrointestinal: N.p.o. for the time being. LFTs largely unremarkable aside from mild elevation of alkaline phosphatase. Renal: Patient with metabolic alkalosis. Will avoid diuresis for the time being. Electrolytes reasonable at this time. Follow urine output closely. Alkalosis should improve improvement of patient's pCO2. Infectious disease: No overt infectious signs at this time. Hematologic: Patient with a known history of macrocytic anemia and was seen by hematology November 13, 2023. At that time he was recommended to potentially pursue a GI workup if not already done so. Hemoglobin is stable at this time and will hemant tor globin daily. If signs of overt bleeding, will transfuse if hemoglobin drops below 7. Suspect that his anemia is likely due to anemia of chronic disease. Endocrine: Normal TSH in May 2023. Resume using heat maintain euglycemia. VTE prophylaxis: SCDs CODE STATUS: FULL Family at bedside: Updated at bedside Disposition: ICU I have personally spent 44 minutes of critical care time in the direct management of this patient. This is a life/limb threatening event. This includes time spent evaluating patient, direct bedside care, chart review, placing orders, interpretation of diagnostic studies, discussion with consultants, patient, and family members, as well as other required patient management activities. This time is exclusive of all separately billable procedures, and teaching time and separate from and in addition to any other critical care service time. Thank you for allowing us to participate in the care of this patient. History of Present Illness Reason for Consultation: Intubation due to hypercapnic respiratory failure Attending Physician: Errol Soares MD History of Present Illness 68-year-old male with a past medical history of COPD, atrial fibrillation, tobacco abuse, GERD and anxiety who presented today for an elective robotic bronchoscopy. Patient had multiple enlarging pulmonary nodules concerning for malignancy. Apparently prior to the procedure yesterday the patient had a mechanical fall and there was concern of possible hip injury. There was also concern of possible head injury. CT head was interpreted earlier today without acute findings seen. X-rays of the hip revealed moderate osteoarthritis without acute fracture. Status post patient's bronchoscopy, he was taken to the ER for further evaluation due to his fall. While in the ER he developed worsening respiratory distress and was ultimately intubated by the ER staff. ABG revealed severe respiratory acidosis with a pH of 7.21 pCO2 114 and a rayna mitten metabolic alkalosis with a bicarb of 46. Repeat ABG at 2:18p revealed a pH of 7.39 and a pCO2 of 74. Chest x-ray 12/08/2023 personally reviewed revealed a right lower lobe mass and scattered irregular densities throughout the lung. No pneumothorax seen. Endotracheal tube about 5 cm above the ortega. I did discuss the case with Dr. Bolanos who was the bronchoscopist earlier today. Apparently malignant tissue was aspirated from several lung nodules with final pathology pending. No history was elicited from the patient as he is currently intubated and sedated. Patient's family was at bedside. Notably, patient was discharged from the hospital November 13 due to acute on chronic respiratory failure with hypoxia and hypercapnia and also was discharged earlier that month for similar issues and seen by Dr. Bolanos in pulmonary consul tation 10/20/2023. Allergies Allergy/AdvReac Type Severity Reaction Status Date / Time No Known Allergies Allergy Verified 12/08/23 05:46 Home Medications Medication Instructions Recorded Confirmed Type albuterol sulfate 90 mcg/actuation 2 puff inhalation Q4H PRN 06/19/21 12/08/23 History aerosol inhaler Shortness Of Breath Or Wheezing albuterol sulfate 2.5 mg/3 mL 2.5 mg inhalation QID PRN 05/27/23 12/08/23 History (0.083 %) solution for nebulization Shortness Of Breath Or Wheezing buspirone 15 mg tablet 15 mg PO BID 05/27/23 12/08/23 History lanolin alcohols-mineral 1 applic topical BID PRN Dry Skin 05/27/23 12/08/23 History oil-w.petrolatum-ceresin topical cream (Eucerin topical cream) guaifenesin 600 mg tablet, 1,200 mg (2 x 600 mg) PO Q12 #15 10/22/23 12/08/23 Rx extended release 12 hr (Mucinex) tabs pantoprazole 40 mg tablet,delayed 40 mg PO DAILY #28 tabs 10/22/23 12/08/23 Rx release Oxygen Home #1 ea 11/14/23 Rx cyanocobalamin (vitamin B-12) 1,000 mcg PO DAILY #30 tabs 11/14/23 12/08/23 Rx 1,000 mcg tablet folic acid 1 mg tablet 1 mg PO DAILY #30 tabs 11/14/23 12/08/23 Rx ipratropium 0.5 mg-albuterol 3 mg 3 ml NEB QID PRN 11/14/23 12/08/23 Rx (2.5 mg base)/3 mL nebulization cough/wheeze/shortness of breath soln #180 mL mupirocin 2 % topical ointment 1 applic topical BID PRN nose 11/14/23 12/08/23 Rx bleed #15 grams ascorbic acid (vitamin C) 500 mg 500 mg PO DAILY 12/08/23 12/08/23 History tablet (Vitamin C) atorvastatin 20 mg tablet 10 mg PO DAILY 12/08/23 12/08/23 History budesonide 160 mcg-glycopyr 9 2 inh inhalation BID 12/08/23 12/08/23 History mcg-formot 4.8 mcg/actuation HFA inhaler (Breztri Aerosphere) docusate sodium 100 mg capsule 100 mg PO DAILY PRN Constipation 12/08/23 12/08/23 History ergocalciferol (vitamin D2) 1,250 1,250 mcg PO 2XWK 12/08/23 12/08/23 History mcg (50,000 unit) capsule (Vitamin D2) ferrous sulfate 325 mg (65 mg 325 mg PO BID 12/08/23 12/08/23 History iron) tablet food supplemt, lactose-reduced 1 ea PO BID 12/08/23 12/08/23 History lorazepam 1 mg tablet 1 mg PO BID PRN Anxiety/Nerves 12/08/23 12/08/23 History naloxone 4 mg/actuation nasal spray 4 mg intranasal ONCE PRN Opioid 12/08/23 12/08/23 History Overdose nicotine 21 mg/24 hr daily 1 patch transdermal DAILY 12/08/23 12/08/23 History transdermal patch quetiapine 400 mg tablet 0 mg PO HS 12/08/23 12/08/23 History Patient History Medical History History of non-ST elevation myocardial infarction (NSTEMI) 10/2023 [facility] admission, troponin bump in setting of significant illness History of atrial fibrillation New-onset 10/2023 [facility] admission in setting of significant illness, AC held in setting of current severe anemia, no known recurrence Macrocytic anemia Depression with anxiety Bipolar disorder Hyperlipidemia Right lower lobe lung mass COPD (chronic obstructive pulmonary disease) Dependence on supplemental oxygen Per records, ? current status Vitamin D deficiency Ventricular premature depolarization Unspecified mood [affective] disorder Insomnia Emphysema lung Social History Smoking Status: Current every day smoker Tobacco Type: Cigarettes Cigarettes Per Day: 6; Second Hand Exposure: No; Do You Dip or Chew Tobacco: No; Tobacco Cessation Education Requested by Patient: No Hx Alcohol Use: No Hx Substance Use: No Preferred Language: Mongolian Communication Ability: Effective Direct Customer Service Representative Required: No Beliefs That Will Affect Care: None Current Living Situation: Alone Current Living Situation Comment: Lives at [facility] Other Information That Helps Us Care for You: No Feels Safe at Home: Yes Safety Concerns: Feels Safe At This Time Assistive Devices: Cane and Oxygen - Continuous Review of Systems Review of Systems: Unobtainable due to cognitive status and Unobtainable due to endotracheal tube Physical Exam Physical Exam: Constitutional: Patient appears to be of their stated age. Intubated and sedated. Disheveled appearing. Eyes: Pupils are equal round and reactive to light. Conjunctivae are normal. Anicteric sclera. Ears nose, mouth and throat: Endotracheal tube in place. Neck: Trachea is midline. Visual inspection is normal. Respiratory: Coarse lung sounds bilaterally with mild expiratory wheeze. Cardiovascular: Regular rate and rhythm. No murmurs. No edema. Gastrointestinal: Normal bowel sounds, soft, nontender and nondistended. No hepatosplenomegaly noted. Musculoskeletal: No cyanosis. Patient is able to move all extremities. Strength is 5 out of 5 in the upper and lower extremities. Skin: No rashes, warm dry and intact. Neurologic: Unable to fully assess due to sedation with propofol. Psychiatric: Unable to assess due to intubation status. Results & Data Results & Data Vital Signs (Past 12 Hours) Vital Signs Temp Pulse Pulse Pulse Resp BP BP 12/08/23 15:00 73 24 120/61 12/08/23 14:30 72 24 130/41 L 12/08/23 14:15 73 24 117/45 L 12/08/23 14:00 68 24 93/51 L 12/08/23 13:24 12/08/23 13:23 68 24 12/08/23 13:21 69 24 105/46 L 12/08/23 13:21 12/08/23 13:21 73 24 105/46 L 12/08/23 12:55 72 20 12/08/23 12:50 70 24 12/08/23 12:45 64 24 12/08/23 12:41 24 12/08/23 12:25 78 24 12/08/23 12:21 86 24 12/08/23 12:10 74 12/08/23 12:07 76 12/08/23 12:03 78 12/08/23 11:57 78 12/08/23 11:54 12/08/23 11:51 81 12/08/23 11:48 84 36 H 12/08/23 11:47 86 27 H 12/08/23 11:32 37 C 86 20 156/75 H BP Pulse Ox O2 Del Method O2 Flow Rate FiO2 12/08/23 15:00 98 Mechanical Vent 60 12/08/23 14:30 97 Mechanical Vent 50 12/08/23 14:15 94 Mechanical Vent 50 12/08/23 14:00 91 Mechanical Vent 35 12/08/23 13:24 Mechanical Vent 12/08/23 13:23 95 50 12/08/23 13:21 95 Mechanical Vent 50 12/08/23 13:21 Mechanical Vent 50 12/08/23 13:21 97 Mechanical Vent 50 12/08/23 12:55 127/55 L 91 Mechanical Vent 50 12/08/23 12:50 124/64 96 Mechanical Vent 50 12/08/23 12:45 138/58 L 99 Mechanical Vent 50 12/08/23 12:41 100 40 12/08/23 12:25 172/86 H 100 Mechanical Vent 50 12/08/23 12:21 194/71 H 100 Mechanical Vent 12/08/23 12:10 140/61 BiPAP 12/08/23 12:07 157/62 H 100 BiPAP 12/08/23 12:03 137/98 98 BiPAP, Nebulizer 12/08/23 11:57 146/53 H 100 BiPAP 12/08/23 11:54 100 BiPAP 12/08/23 11:51 12/08/23 11:48 156/77 H 95 Nasal Cannula 6 12/08/23 11:47 95 Nasal Cannula 8 12/08/23 11:32 93 Nasal Cannula 6 Coding Level of Care Code 25613 Prolonged Care (int'l) Diagnoses Acute on chronic respiratory failure with hypoxia and hypercapnia J96.21; J96.22 Status post bronchoscopy Z98.890 Endotracheally intubated Z97.8
[2023-12-08] MEDS: ICU Protocol for HYPERglycemia SCH (18:40)
[2023-12-08] MEDS ORDERED: fentaNYL BOLUS from BAG IV PRN (20:45)
[2023-12-08] MEDS: fentaNYL citrate 2,500 MCG/250 ML BAG IV ONE (21:06)
[2023-12-08] MEDS: fentaNYL citrate 2,500 MCG/250 ML BAG IV SCH (21:06)
[2023-12-08] MEDS: PANTOprazole 40 MG/10 ML SYR IV SCH (23:29)
[2023-12-09 04:43] LABS: iSTAT Allen Test Pass; iSTAT Art Bld Gas pCO2 Correct 53 mmHg (35-46); iSTAT Art Bld Gas pH Corrected 7.513 (7.35-7.45); iSTAT Arterial Blood Gas HCO3 42 meg/L (19-24); iSTAT Arterial Blood Gas pCO2 51 mmHg (35-46); iSTAT Arterial Blood Gas pH 7.53 (7.35-7.45); iSTAT Arterial Blood Gas pO2 56 mmHg (80-95); iSTAT Arterial Blood Gas pO2 C 60; iSTAT Carbon Dioxide 44 mmol/L (24-31); iSTAT FiO2 40 %; iSTAT Hematocrit 18 % (42-52); iSTAT Hemoglobin 6.1 g/dl (14.0-18.0); iSTAT Potassium 4.1 mmol/L (3.3-5.0); iSTAT Sample Type Arterial; iSTAT Site L Radial; iSTAT Sodium 138 mmol/L (135-144); iSTAT SpO2 92
[2023-12-09 05:21] LABS: BUN Creatinine Ratio 27.8 (10-20); Calcium 8.9 mg/dl (8.6-10.3); Creatinine Clr Calc Pharmacy 78.1 ml/min; Phosphorus 2.8 mg/dl (2.5-4.9); Potassium 4.4 mmol/L (3.5-5.1)
[2023-12-09 05:24] LABS: Hematocrit (blood only) 21.5 % (42.0-52.0); Hemoglobin 6.3 g/dl (14.0-18.0); Mean Corpuscular Hemoglobin 28.5 pg (25.0-34.0); Mean Corpuscular Hgb Conc 29.3 g/dL (32.0-36.0); Mean Corpuscular Volume 97.3 fL (80.0-100.0); Mean Platelet Volume 11.1 fL (9.4-12.4); Platelet Count 228 K/uL (130-400); RDW Coefficient of Variation 14.7 % (11.5-14.5); RDW Standard Deviation 51.6 fL (36.4-46.3); Red Blood Count 2.21 M/uL (4.70-6.10); White Blood Count 8.11 K/ul (4.8-10.8)
[2023-12-09] MEDS ORDERED: SODIUM CHLORIDE 0.9% 100 ML IV PRN (05:29)
[2023-12-09 05:30] LABS: Basophils # (auto) 0.01 K/uL (0.00-0.20); Basophils % (auto) 0.1 %; Immature Granulocytes # (auto) 0.03 K/uL (0.01-0.20); Immature Granulocytes % (auto) 0.4 %; Lymphocytes # (auto) 0.84 K/uL (1.20-3.40); Lymphocytes % (auto) 10.4 %; Monocytes % (auto) 2.5 %; Neutrophils # (auto) 7.03 K/uL (1.40-6.50); Neutrophils % (auto) 86.6 %; Polychromasia 1+; Stomatocytes 2+
--- NOTE | 2023-12-09 07:57 | XRay Report ---
XR chest 1V portable HISTORY: 68 years-old Male Resp failure acute respiratory failure COMPARISON: 12/08/2023 TECHNIQUE: AP view of the chest FINDINGS: Endotracheal tube overlies the midline, 4.7 cm superior to the ortega. Heart is enlarged. No pneumoth orax or large pleural effusion. Mild cardiomegaly. Pulmonary vascular congestion. Ill-defined scatter ed bilateral pulmonary opacities are again noted which are most pronounced in the right lung base. IMPRESSION: 1. Distal tip of enteric tube overlies the midline, 4.7 cm superior to the ortega. 2. Right basilar predominant airspace opacities again noted. 3. No pneumothorax. ACT 112: Negative or not required by law. The above report was generated using voice recognition software. It may contain grammatical, syntax o r spelling errors. Electronically signed by: Roc Sequeira M.D. 12/09/2023 7:56 AM
[2023-12-09 08:09] VITALS: TEMP 99.5
[2023-12-09] MEDS ORDERED: STAT IV Infusion **Titration per Protocol STA ×2 (09:33)
[2023-12-09] MEDS: dexMEDEtomidine 200 MCG/50 ML BAG IV SCH (09:40)
[2023-12-09] MEDS ORDERED: dexMEDEtomidine 200 MCG/50 ML BAG IV SCH (09:45)
[2023-12-09 10:19] LABS: iSTAT Allen Test Pass; iSTAT Art Bld Gas pCO2 Correct 61 mmHg (35-46); iSTAT Art Bld Gas pH Corrected 7.444 (7.35-7.45); iSTAT Arterial Blood Gas HCO3 42 meg/L (19-24); iSTAT Arterial Blood Gas pCO2 61 mmHg (35-46); iSTAT Arterial Blood Gas pH 7.44 (7.35-7.45); iSTAT Arterial Blood Gas pO2 72 mmHg (80-95); iSTAT Arterial Blood Gas pO2 C 72; iSTAT Carbon Dioxide 44 mmol/L (24-31); iSTAT FiO2 40 %; iSTAT Hematocrit 24 % (42-52); iSTAT Hemoglobin 8.2 g/dl (14.0-18.0); iSTAT Potassium 4.2 mmol/L (3.3-5.0); iSTAT Sample Type Arterial; iSTAT Site L Radial; iSTAT Sodium 138 mmol/L (135-144); iSTAT SpO2 95
[2023-12-09] MEDS: ALBUT/IPRATROP 3MG/0.5MG NEB 3 ML VIAL NEB STA ×2 (11:05→17:48)
[2023-12-09] MEDS: 4.5GM X1 IV ONE (11:19)
--- NOTE | 2023-12-09 15:24 | Critical Care Progress Note ---
Date of Service December 09, 2023 Assessment & Plan (1) Acute on chronic respiratory failure with hypoxia and hypercapnia: (2) Status post bronchoscopy: (3) Endotracheally intubated: (4) Anemia: (5) Pneumonia: Plan 68-year-old male with a history of tobacco abuse, COPD, multiple lung nodules and chronic hypercapnic respiratory failure who is presenting to the ICU due to acute hypercapnic respiratory failure status post bronchoscopy. Neurologic: Patient extubated and weaning off Precedex. Pulmonary: Bronchoscopy concerning for metastatic lung cancer. Patient successfully extubated. Continue BiPAP as needed and nightly given chronic hypercapnic respiratory failure. Cardiovascular: Troponin mildly elevated likely due to demand ischemia. Echo 10/17/23 with G1DD. Normal LV function. EKG now. History of paroxysmal A-fib. Not on anticoagulation due to severe anemia. Monitor on telemetry. Gastrointestinal: Will have speech therapy see the patient and cleared, start diet. Renal: Alkalosis mildly improved due to improving hypercapnia. Replace electrolytes as needed. Monitor urine output. Discontinue Cano. Infectious disease: Patient with low-grade fever overnight and right lower lobe infiltrate. Will empirically treat with Zosyn. He has a history of Pseudomonas positivity on sputum culture from September. Nasal MRSA screen was negative. Hematologic: Patient with no macrocytic anemia. Hemoglobin dropped today below 7 likely related to hemodilution. Status post 1 unit of packed RBCs. Monitor hemoglobin daily. No evidence of active bleeding at this time. Will hold on anticoagulation given chronic anemia which is quite severe. Patient known to hematology and has been seen by them in the past. Endocrine: Normal TSH in May 2023. Resume using heat maintain euglycemia. VTE prophylaxis: SCDs CODE STATUS: FULL Family at bedside: Updated daughter at bedside Disposition: ICU I have personally spent 36 minutes of critical care time in the direct management of this patient. This is a life/limb threatening event. This includes time spent evaluating patient, direct bedside care, chart review, placing orders, interpretation of diagnostic studies, discussion with consultants, patient, and family members, as well as other required patient management activities. This time is exclusive of all separately billable procedures, and teaching time and separate from and in addition to any other critical care service time. Thank you for allowing us to participate in the care of this patient. Admission and Anticipated Discharge Date Admission Date: December 08, 2023 Subjective Patient seen examined. He was doing well on spontaneous awakening trial and spontaneous breathing trial and ultimately extubated. He did have increased anxiety and was on Precedex which is being weaned off. He tolerated BiPAP therapy and his mentation seems to be improving. Review of Systems Review of Systems: All systems reviewed & are unremarkable except as noted in HPI & below Physical Exam Physical Exam: Constitutional: Patient appears to be of their stated age. Extubated. Disheveled appearing. Eyes: Pupils are equal round and reactive to light. Conjunctivae are normal. Anicteric sclera. Ears nose, mouth and throat: Endotracheal tube in place. Neck: Trachea is midline. Visual inspection is normal. Respiratory: Coarse lung sounds bilaterally with mild expiratory wheeze. Cardiovascular: Regular rate and rhythm. No murmurs. No edema. Gastrointestinal: Normal bowel sounds, soft, nontender and nondistended. No hepatosplenomegaly noted. Musculoskeletal: No cyanosis. Patient is able to move all extremities. Strength is 5 out of 5 in the upper and lower extremities. Skin: No rashes, warm dry and intact. Neurologic: No focal deficits. Psychiatric: Mild anxiety. Alert and oriented x 3. Results & Data Results & Data Vital Signs (Past 12 Hours) Vital Signs Temp Pulse Pulse Resp BP Pulse Ox O2 Del Method 12/09/23 13:36 68 16 98 BiPAP 12/09/23 10:20 84 20 97 12/09/23 09:30 37.5 C 73 20 141/67 H 93 12/09/23 07:50 37.5 C 82 18 122/56 L 91 12/09/23 07:20 37.4 C 77 18 144/42 H 12/09/23 07:06 77 18 91 12/09/23 07:05 82 18 126/56 L 93 12/09/23 06:46 37.5 C 76 19 126/52 L 94 12/09/23 06:43 37.5 C 77 18 128/52 L 93 12/09/23 05:06 81 18 93 12/09/23 04:45 18 12/09/23 04:30 113/74 12/09/23 04:30 113/74 12/09/23 04:30 84 24 92 12/09/23 04:00 37.8 C H 88 24 92 12/09/23 04:00 111/50 L 12/09/23 04:00 111/50 L 12/09/23 04:00 111/50 L 12/09/23 04:00 FiO2 12/09/23 13:36 40 12/09/23 10:20 40 12/09/23 09:30 12/09/23 07:50 12/09/23 07:20 12/09/23 07:06 40 12/09/23 07:05 12/09/23 06:46 12/09/23 06:43 12/09/23 05:06 12/09/23 04:45 12/09/23 04:30 12/09/23 04:30 12/09/23 04:30 12/09/23 04:00 12/09/23 04:00 12/09/23 04:00 12/09/23 04:00 12/09/23 04:00 40 Coding Level of Care Code 12118 CRITICAL CARE 1ST 30-74M Diagnoses Acute on chronic respiratory failure with hypoxia and hypercapnia J96.21; J96.22 Status post bronchoscopy Z98.890 Endotracheally intubated Z97.8 Anemia D64.9 Pneumonia J18.9
--- NOTE | 2023-12-09 18:06 | Hospitalist Progress Note ---
Date of Service December 09, 2023 Assessment & Plan (1) Acute exacerbation of chronic obstructive pulmonary disease: Plan: Required intubation for acute on chronic respiratory failure with hypoxia and hypercapnia s/p bronchoscopy for lung cancer Was given Solu-medrol 125mg IV but no steroids discontinued by pulmonology Started on Zosyn Now extubated and on BiPAP Appreciate ICU/pulmonology management (2) Acute on chronic respiratory failure with hypoxia and hypercapnia: Plan: As above (3) Macrocytic anemia: Plan: Severe anemia, hemoglobin 6.3-was given 1 unit PRBCs B12 and folate low normal from previous admission-was receiving replacement orally as an outpatient Follow CBC No overt bleeding (4) Depression with anxiety: Plan: Lorazepam as needed Holding home Seroquel (5) Right lower lobe lung mass: Plan: Pathology confirms adenocarcinoma Follow-up with pulmonology and will need oncology evaluation (6) History of atrial fibrillation: Plan: None here thus far but this was diagnosed last admission but not placed on anticoagulation given severe anemia Follow on telemetry Plan VTE Prophylaxis -SCDs Disposition -continued stay in ICU Admission and Anticipated Discharge Date Admission Date: December 08, 2023 Subjective Pt extubated today and remains on bipap. Tells me he feels "useless." He received 1 unit PRBCs today. Was very anxious and received ativan to tolerate BiPAP after being weaned off precedex gtt. Tele with NSR Physical Exam Constitutional: + ill appearing and + disheveled Respiratory: + tachypneic (mild) Auscultation: + r honchi and + wheezes Cardiovascular: Rate/Rhythm: regular rate and regular rhythm Heart Sounds: no murmur Extremities: no edema Gastrointestinal (Abdomen): normal bowel sounds, soft, nontender, no hepatosplenomegaly Psychiatric: Orientation: alert, oriented to person, oriented to place and cooperative Affect: + anxious affect Results & Data Results & Data Vital Signs (Past 12 Hours) Vital Signs Temp Pulse Pulse Resp BP Pulse Ox O2 Del Method 12/09/23 17:51 71 18 99 12/09/23 17:49 71 18 99 BiPAP 12/09/23 13:36 68 16 98 BiPAP 12/09/23 10:20 84 20 97 12/09/23 09:30 37.5 C 73 20 141/67 H 93 12/09/23 08:00 71 12/09/23 07:50 37.5 C 82 18 122/56 L 91 12/09/23 07:20 37.4 C 77 18 144/42 H 12/09/23 07:06 77 18 91 12/09/23 07:05 82 18 126/56 L 93 12/09/23 06:46 37.5 C 76 19 126/52 L 94 12/09/23 06:43 37.5 C 77 18 128/52 L 93 FiO2 12/09/23 17:51 40 12/09/23 17:49 40 12/09/23 13:36 40 12/09/23 10:20 40 12/09/23 09:30 12/09/23 08:00 12/09/23 07:50 12/09/23 07:20 12/09/23 07:06 40 12/09/23 07:05 12/09/23 06:46 12/09/23 06:43 Laboratory Results CBC, BMP, ABG, troponin, B12 and folate reviewed Pathology reviewed PG Care Time/CCT Total # of Minutes Spent Total Time Spent with Patient: Total time spent is greater than 50% in coordination of care (as documented) at patient's floor/unit and/or counseling patient: Coding Level of Care Code 18008 SUB INP/OBS CARE 2/35MIN Diagnoses Acute exacerbation of chronic obstructive pulmonary disease J44.1 Acute on chronic respiratory failure with hypoxia and hypercapnia J96.21; J96.22 Macrocytic anemia D53.9 Depression with anxiety F41.8 Right lower lobe lung mass R91.8 History of atrial fibrillation Z86.79
[2023-12-09] MEDS: PIPERACILLIN/TAZOBACTAM 4.5 GM/100 ML BAG IV SCH (18:39)
[2023-12-09] MEDS: LORazepam 2 MG/1 ML VIAL IV STA ×2 (18:50→23:10)
[2023-12-09] MEDS: LORazepam 2 MG/1 ML VIAL ONE (18:51)
[2023-12-09] MEDS: AMMONIUM LACTATE 12% LOTION 225 GM BTL EXT SCH (22:00)
[2023-12-10] MEDS: ALBUT/IPRATROP 3MG/0.5MG NEB 3 ML VIAL NEB PRN (03:18)
[2023-12-10 05:34] LABS: Basophils # (auto) 0.01 K/uL (0.00-0.20); Basophils % (auto) 0.1 %; Eosinophils # (auto) 0.06 K/uL (0.00-0.50); Eosinophils % (auto) 0.6 %; Hematocrit (blood only) 25.2 % (42.0-52.0); Hemoglobin 7.8 g/dl (14.0-18.0); Immature Granulocytes # (auto) 0.02 K/uL (0.01-0.20); Immature Granulocytes % (auto) 0.2 %; Lymphocytes % (auto) 19.9 %; Mean Corpuscular Hemoglobin 29.1 pg (25.0-34.0); Mean Platelet Volume 10.8 fL (9.4-12.4); Monocytes # (auto) 1.09 K/uL (0.11-0.59); Monocytes % (auto) 10.8 %; Neutrophils # (auto) 6.88 K/uL (1.40-6.50); Neutrophils % (auto) 68.4 %; Platelet Count 243 K/uL (130-400); RDW Coefficient of Variation 15.5 % (11.5-14.5); RDW Standard Deviation 53.1 fL (36.4-46.3); Red Blood Count 2.68 M/uL (4.70-6.10); White Blood Count 10.06 K/ul (4.8-10.8)
[2023-12-10 05:50] LABS: Polychromasia 1+
[2023-12-10 05:52] LABS: Creatinine Clr Calc Pharmacy 73.2 ml/min; Magnesium 1.9 mg/dl (1.7-2.4); Phosphorus 3.2 mg/dl (2.5-4.9); Potassium 3.8 mmol/L (3.5-5.1)
--- NOTE | 2023-12-10 09:30 | Critical Care Progress Note ---
Date of Service December 10, 2023 Assessment & Plan (1) Acute on chronic respiratory failure with hypoxia and hypercapnia: (2) Status post bronchoscopy: (3) Endotracheally intubated: (4) Anemia: (5) Pneumonia: (6) Adenocarcinoma of lung, stage 4: Plan 68-year-old male with a history of tobacco abuse, COPD, multiple lung nodules and chronic hypercapnic respiratory failure who is presenting to the ICU due to acute hypercapnic respiratory failure status post bronchoscopy. Neurologic: Patient anxious at times. Using as needed Ativan. Anxiety likely related to shortness of breath. Pulmonary: Bronchoscopy biopsy results consistent with stage IV lung cancer. Patient steen ccessfully extubated. Continue BiPAP as needed and nightly given chronic hypercapnic respiratory failure. Continue DuoNebs as needed. Will start prednisone 40 mg daily given ongoing wheezing and bronchospasm. Suspect right lower lobe infiltrate seen earlier was that related to atelectasis or malignancy. Pneumonia thought to be less likely at present and antibiotics will be discontinued. Cardiovascular: Troponin mildly elevated likely due to demand ischemia. Echo 10/17/23 with G1DD. Normal LV function. History of paroxysmal A-fib. Not on anticoagulation due to severe anemia. Monitor on telemetry. Gastrointestinal: Advance diet as tolerated. Renal: Metabolic alkalosis improving. Serum bicarbonate 38. Infectious disease: No significant white count and fever curve has improved. Patient without overt evidence of cough or sputum production. Will discontinue Zosyn. Will have low threshold to restart antibiotics. Hematologic: Patient with no macrocytic anemia. Hemoglobin stable today. Status post 1 unit of packed RBCs 12/09/2023. Will consult oncology given new diagnosis of lung cancer. Endocrine: Normal TSH in May 2023. Resume using heat maintain euglycemia. VTE prophylaxis: SCDs CODE STATUS: FULL, will need goals of care discussion given advanced COPD and stage IV lung cancer. Palliative care consulted. Family at bedside: None currently available. Disposition: ICU unless goals of care change. I have personally spent 38 minutes of critical care time in the direct management of this patient. This is a life/limb threatening event. This includes time spent evaluating patient, direct bedside care, chart review, placing orders, interpretation of diagnostic studies, discussion with consultants, patient, and family members, as well as other required patient management activities. This time is exclusive of all separately billable procedures, and teaching time and separate from and in addition to any other critical care service time. Thank you for allowing us to participate in the care of this patient. Admission and Anticipated Discharge Date Admission Date: December 08, 2023 Subjective Patient seen and examined. Remains on BiPAP. Remains mildly anxious. Apparently when he comes off BiPAP he becomes very tachypneic and anxious. Review of Systems Review of Systems: All systems reviewed & are unremarkable except as noted in HPI & below Physical Exam Physical Exam: Constitutional: Patient appears to be of their stated age. BiPAP mask in place.. Disheveled appearing. Eyes: Pupils are equal round and reactive to light. Conjunctivae are normal. Anicteric sclera. Ears nose, mouth and throat: BiPAP mask in place. Neck: Trachea is midline. Visual inspection is normal. Respiratory: Coarse lung sounds bilaterally with mild expiratory wheeze. Cardiovascular: Regular rate and rhythm. No murmurs. No edema. Gastrointestinal: Normal bowel sounds, soft, nontender and nondistended. No hepatosplenomegaly noted. Musculoskeletal: No cyanosis. Patient is able to move all extremities. Strength is 5 out of 5 in the upper and lower extremities. Skin: No rashes, warm dry and intact. Neurologic: No focal deficits. Psychiatric: Mild anxiety. Alert and oriented x 3. Results & Data Results & Data Vital Signs (Past 12 Hours) Vital Signs Temp Pulse Pulse Resp BP Pulse Ox O2 Del Method 12/10/23 08:57 BiPAP 12/10/23 08:09 68 20 94 12/10/23 08:00 164/64 H 12/10/23 08:00 66 12/10/23 07:16 66 23 95 BiPAP 12/10/23 07:16 66 22 95 12/10/23 07:06 66 21 81 L 12/10/23 07:00 155/58 H 12/10/23 06:57 68 22 100 12/10/23 06:44 160/81 H 12/10/23 04:09 64 15 97 12/10/23 04:00 153/57 H 12/10/23 04:00 153/57 H 12/10/23 04:00 153/57 H 12/10/23 04:00 37.5 C 12/10/23 03:48 68 16 98 12/10/23 03:22 69 17 99 12/10/23 03:20 69 17 99 BiPAP 12/10/23 03:03 67 16 97 12/10/23 03:00 137/55 L 12/10/23 03:00 137/55 L 12/10/23 02:54 67 18 97 12/10/23 02:10 131/68 12/10/23 02:09 69 17 94 12/10/23 02:06 68 20 96 12/10/23 01:05 145/64 H 12/10/23 01:03 70 19 97 12/10/23 00:36 77 21 99 12/10/23 00:34 77 21 99 BiPAP 12/10/23 00:15 69 20 100 12/10/23 00:12 170/38 H 12/10/23 00:12 170/38 H 12/10/23 00:09 68 15 99 12/10/23 00:03 76 13 97 12/10/23 00:00 76 12/09/23 23:31 109/46 L 12/09/23 23:24 69 16 97 12/09/23 23:03 75 17 98 12/09/23 23:01 157/113 H 12/09/23 23:01 157/113 H 12/09/23 22:31 147/46 H 12/09/23 22:30 69 18 97 12/09/23 22:22 166/64 H 12/09/23 22:22 166/64 H 12/09/23 22:21 79 95 12/09/23 22:06 71 16 98 FiO2 12/10/23 08:57 40 12/10/23 08:09 12/10/23 08:00 12/10/23 08:00 12/10/23 07:16 40 12/10/23 07:16 40 12/10/23 07:06 12/10/23 07:00 12/10/23 06:57 12/10/23 06:44 12/10/23 04:09 40 12/10/23 04:00 12/10/23 04:00 12/10/23 04:00 12/10/23 04:00 12/10/23 03:48 12/10/23 03:22 40 12/10/23 03:20 40 12/10/23 03:03 40 12/10/23 03:00 12/10/23 03:00 12/10/23 02:54 12/10/23 02:10 12/10/23 02:09 12/10/23 02:06 40 12/10/23 01:05 12/10/23 01:03 40 12/10/23 00:36 40 12/10/23 00:34 40 12/10/23 00:15 12/10/23 00:12 12/10/23 00:12 12/10/23 00:09 12/10/23 00:03 40 12/10/23 00:00 12/09/23 23:31 12/09/23 23:24 12/09/23 23:03 40 12/09/23 23:01 12/09/23 23:01 12/09/23 22:31 12/09/23 22:30 12/09/23 22:22 12/09/23 22:22 12/09/23 22:21 12/09/23 22:06 40 Coding Level of Care Code 41102 CRITICAL CARE 1ST 30-74M Diagnoses Acute on chronic respiratory failure with hypoxia and hypercapnia J96.21; J96.22 Status post bronchoscopy Z98.890 Endotracheally intubated Z97.8 Anemia D64.9 Pneumonia J18.9 Adenocarcinoma of lung, stage 4 C34.90
--- NOTE | 2023-12-10 10:25 | Communication Note ---
Date of Service: December 10, 2023 I had a discussion with both the patient and patient's daughter at bedside. We discussed the pathologic diagnosis from his bronchoscopy and that he has evidence of stage IV lung cancer. He also has worsening respiratory distress on BiPAP therapy and notes that he is quite anxious. We did discuss CODE STATUS in detail and at this time the patient indicates that he would want to be a DNR/DNI in the event of a cardiac or respiratory arrest. He is uncertain about how he would like to proceed with his cancer treatment. I did discuss that I do not feel that he is stable for initiation of cancer treatment at this time or even port placement. I also discussed this with the patient's oncologist who is in agreement that he is not stable for active initiation of treatment currently. We agreed to a trial of Ativan and reassessing his clinical status shortly thereafter.
[2023-12-10] MEDS: LORazepam 2 MG/1 ML VIAL IV PRN ×3 (10:37→18:58)
[2023-12-10] MEDS: methylPREDNISolone 40 MG in SYRINGE 0 ML IV SCH (11:27)
--- NOTE | 2023-12-10 13:36 | Hospitalist Progress Note ---
Date of Service December 10, 2023 Assessment & Plan (1) Acute exacerbation of chronic obstructive pulmonary disease: Plan: Required intubation for acute on chronic respiratory failure with hypoxia and hypercapnia s/p bronchoscopy for lung cancer Was given steroids but now discontinue on comfort measures Started on Zosyn for possible pneumonia which turned out to be atelectasis- resolved and discontinued antibiotics, now on comfort measures Extubated and placed on BiPAP on 12/08 and could not be weaned off BiPAP by 12/09. He was very anxious and was made comfort measures, given several doses of IV Ativan and is now comfortable on nasal cannula Appreciate ICU/pulmonology management-downgrade to medical/surgical unit on comfort measures only (2) Acute on chronic respiratory failure with hypoxia and hypercapnia: Plan: As above (3) Adenocarcinoma of lung, stage 4: Plan: Pathology confirms adenocarcinoma of lung mass in right lower lobe Patient with stage IV lung adenocarcinoma-he has opted for comfort measures only and would not be a good candidate for treatment at this point given functional status and poor respiratory status as per oncology and pulmonology (4) Macrocytic anemia: Plan: Severe anemia, hemoglobin 6.3-was given 1 unit PRBCs and hemoglobin improved to 7.8 B12 and folate low normal from previous admission-was receiving replacement orally as an outpatient No overt bleeding No need to follow CBC on comfort measures (5) Depression with anxiety: Plan: Lorazepam as needed (6) History of atrial fibrillation: Plan: None here thus far but this was diagnosed last admission but not placed on anticoagulation given severe anemia No need to follow on telemetry Plan VTE Prophylaxis -SCDs discontinued on comfort measures Disposition -transition to medical/surgical unit on comfort measures only. If stable enough, he would like to return home if possible Admission and Anticipated Discharge Date Admission Date: December 08, 2023 Subjective Patient remained on BiPAP today and tried to come off of it but was not able to. He also wanted to try to drink and eat but he aspirated on this. Ultimately, after discussing his new diagnosis of stage IV lung cancer, and a discussion with palliative medicine, he and his family opted for comfort measures only. I saw him after he received several doses of IV Ativan and he was much more comfortable, off the BiPAP. He was finally able to eat solid foods later in the day. Physical Exam Constitutional: no acute distress Respiratory: normal respiratory effort Auscultation: + rhonchi and + wheezes Cardiovascular: Rate/Rhythm: regular rate and regular rhythm Heart Sounds: no murmur Extremities: no edema Gastrointestinal (Abdomen): normal bowel sounds, soft, nontender, no hepatosplenomegaly Psychiatric: Orientation: alert, oriented to person, oriented to place and cooperative Affect: euthymic affect Genitourinary: Cano catheter in place Results & Data Results & Data Vital Signs (Past 12 Hours) Vital Signs Temp Pulse Pulse Resp BP Pulse Ox O2 Del Method 12/10/23 08:57 BiPAP 12/10/23 08:09 68 20 94 12/10/23 08:00 164/64 H 12/10/23 08:00 66 12/10/23 07:16 66 23 95 BiPAP 12/10/23 07:16 66 22 95 12/10/23 07:06 66 21 81 L 12/10/23 07:00 155/58 H 12/10/23 06:57 68 22 100 12/10/23 06:44 160/81 H 12/10/23 04:09 64 15 97 12/10/23 04:00 153/57 H 12/10/23 04:00 153/57 H 12/10/23 04:00 153/57 H 12/10/23 04:00 37.5 C 12/10/23 03:48 68 16 98 12/10/23 03:22 69 17 99 12/10/23 03:20 69 17 99 BiPAP 12/10/23 03:03 67 16 97 12/10/23 03:00 137/55 L 12/10/23 03:00 137/55 L 12/10/23 02:54 67 18 97 12/10/23 02:10 131/68 12/10/23 02:09 69 17 94 12/10/23 02:06 68 20 96 FiO2 12/10/23 08:57 40 12/10/23 08:09 12/10/23 08:00 12/10/23 08:00 12/10/23 07:16 40 12/10/23 07:16 40 12/10/23 07:06 12/10/23 07:00 12/10/23 06:57 12/10/23 06:44 12/10/23 04:09 40 12/10/23 04:00 12/10/23 04:00 12/10/23 04:00 12/10/23 04:00 12/10/23 03:48 12/10/23 03:22 40 12/10/23 03:20 40 12/10/23 03:03 40 12/10/23 03:00 12/10/23 03:00 12/10/23 02:54 12/10/23 02:10 12/10/23 02:09 12/10/23 02:06 40 Laboratory Results CBC, BMP reviewed PG Care Time/CCT Total # of Minutes Spent Total Time Spent with Patient: Total time spent is greater than 50% in coordination of care (as documented) at patient's floor/unit and/or counseling patient: Coding Level of Care Code 71132 SUB INP/OBS CARE 2/35MIN Diagnoses Acute exacerbation of chronic obstructive pulmonary disease J44.1 Acute on chronic respiratory failure with hypoxia and hypercapnia J96.21; J96.22 Adenocarcinoma of lung, stage 4 C34.90 Macrocytic anemia D53.9 Depression with anxiety F41.8 History of atrial fibrillation Z86.79
[2023-12-10] MEDS ORDERED: GLYCOPYRROLATE 0.2 MG/ML VIAL IV PRN (13:53)
--- NOTE | 2023-12-10 14:02 | Palliative Care Consultation ---
Date of Consultation December 10, 2023 Assessment & Plan (1) Dyspnea and respiratory abnormalities: DIVIDEND CLERK orders written Try to transition to NC as able, pt asking to stay off BiPAP Feeling hunger, asking to eat -req WOOD WINDOW AND DOOR CRAFTSMAN eval for best texture to allow comfort feeds (2) Advanced care planning/counseling discussion: A 30min ACP meeting was held at bedside: I met with Maxime and family, agreed to comfort care; he asked for time off BiPAP and wants to eat something/feeling hungry so I asked WO[employer] WINDOW [employer] DOOR CRAFTSMAN to see for reccs on how best to allow PO for comfort/pleasure. I will ad comfort med orders. He understands time is likely short and he may not dc home but I told him if he demonstrates some stability over the weekend then maybe we can plan a home with hospice dc but that I was worried this was likely not going to happen. (3) Weakness generalized: (4) Palliative care by specialist: (5) Adenocarcinoma of lung, stage 4: Plan DIVIDEND CLERK ACp as noted above Thank you for allowing us to participate in the ongoing care of this patient. Please page with any additional concerns. Nikki Fox DNP Director, Palliative Medicine History of Present Illness Reason for Consultation: terminal COPD and stage IV lung ca, new Attending Physician: Jelena Angeles MD History of Present Illness Maxime is a 68yo male with very severe COPD /terminal with newly dx adenoca Stage IV lung cancer He has had rapid declining with severe hypercapnia off BiPAP, which he does not like He is seen at bedside with his dtrs x2, mother in law, sister in law and brother he tells me he is aware of the advanced lung failure issues and he emphasizes his wish to "just get back to my home, I want to be home" Allergies Allergy/AdvReac Type Severity Reaction Status Date / Time No Known Allergies Allergy Verified 12/08/23 05:46 Home Medications Medication Instructions Recorded Confirmed Type albuterol sulfate 90 mcg/actuation 2 puff inhalation Q4H PRN 06/19/21 12/08/23 History aerosol inhaler Shortness Of Breath Or Wheezing albuterol sulfate 2.5 mg/3 mL 2.5 mg inhalation QID PRN 05/27/23 12/08/23 History (0.083 %) solution for nebulization Shortness Of Breath Or Wheezing buspirone 15 mg tablet 15 mg PO BID 05/27/23 12/08/23 History lanolin alcohols-mineral 1 applic topical BID PRN Dry Skin 05/27/23 12/08/23 History oil-w.petrolatum-ceresin topical cream (Eucerin topical cream) guaifenesin 600 mg tablet, 1,200 mg (2 x 600 mg) PO Q12 #15 10/22/23 12/08/23 Rx extended release 12 hr (Mucinex) tabs pantoprazole 40 mg tablet,delayed 40 mg PO DAILY #28 tabs 10/22/23 12/08/23 Rx release Oxygen Home #1 ea 11/14/23 Rx cyanocobalamin (vitamin B-12) 1,000 mcg PO DAILY #30 tabs 11/14/23 12/08/23 Rx 1,000 mcg tablet folic acid 1 mg tablet 1 mg PO DAILY #30 tabs 11/14/23 12/08/23 Rx ipratropium 0.5 mg-albuterol 3 mg 3 ml NEB QID PRN 11/14/23 12/08/23 Rx (2.5 mg base)/3 mL nebulization cough/wheeze/shortness of breath soln #180 mL mupirocin 2 % topical ointment 1 applic topical BID PRN nose 11/14/23 12/08/23 Rx bleed #15 grams ascorbic acid (vitamin C) 500 mg 500 mg PO DAILY 12/08/23 12/08/23 History tablet (Vitamin C) atorvastatin 20 mg tablet 10 mg PO DAILY 12/08/23 12/08/23 History budesonide 160 mcg-glycopyr 9 2 inh inhalation BID 12/08/23 12/08/23 History mcg-formot 4.8 mcg/actuation HFA inhaler (Breztri Aerosphere) docusate sodium 100 mg capsule 100 mg PO DAILY PRN Constipation 12/08/23 12/08/23 History ergocalciferol (vitamin D2) 1,250 1,250 mcg PO 2XWK 12/08/23 12/08/23 History mcg (50,000 unit) capsule (Vitamin D2) ferrous sulfate 325 mg (65 mg 325 mg PO BID 12/08/23 12/08/23 History iron) tablet food supplemt, lactose-reduced 1 ea PO BID 12/08/23 12/08/23 History lorazepam 1 mg tablet 1 mg PO BID PRN Anxiety/Nerves 12/08/23 12/08/23 History naloxone 4 mg/actuation nasal spray 4 mg intranasal ONCE PRN Opioid 12/08/23 12/08/23 History Overdose nicotine 21 mg/24 hr daily 1 patch transdermal DAILY 12/08/23 12/08/23 History transdermal patch quetiapine 400 mg tablet 0 mg PO HS 12/08/23 12/08/23 History Patient History Medical History History of non-ST elevation myocardial infarction (NSTEMI) 10/2023 [facility] admission, troponin bump in setting of significant illness History of atrial fibrillation New-onset 10/2023 [facility] admission in setting of significant illness, AC held in setting of current severe anemia, no known recurrence Macrocytic anemia Depression with anxiety Bipolar disorder Hyperlipidemia Right lower lobe lung mass COPD (chronic obstructive pulmonary disease) Dependence on supplemental oxygen Per records, ? current status Vitamin D deficiency Ventricular premature depolarization Unspecified mood [affective] disorder Insomnia Emphysema lung Social History Smoking Status: Current every day smoker Tobacco Type: Cigarettes Cigarettes Per Day: 6; Second Hand Exposure: No; Do You Dip or Chew Tobacco: No; Tobacco Cessation Education Requested by Patient: No Hx Alcohol Use: No Hx Substance Use: No Preferred Language: Tamazight Communication Ability: Impaired [employer] Manager Architect Required: No Beliefs That Will Affect Care: None Current Living Situation: Alone Current Living Situation Comment: Lives at [facility] Other Information That Helps Us Care for You: No Feels Safe at Home: Yes Safety Concerns: Feels Safe At This Time Assistive Devices: Oxygen - Continuous and Walker Review of Systems Review of Systems: Other (severe dyspnea, on BiPAP, unable to obtain) Physical Exam Physical Exam: signif resp distress on BIPAP use of accessory muscles conversational dyspnea NCAT PERRLA, EOMIs Pharynx pink, +dry mucosa, dentition poor Neck supple, no stridor diminished breath sounds, +crackles +barrel chest tachy S1S2, mild JVD abd soft, BS decreased gen weakness, ALFARO weakly Skin pale, cool to touch, +pallor AAOx3 mood anxious, at times tearful Results & Data Vital Signs (Past 12 Hours) Vital Signs Temp Pulse Pulse Resp BP Pulse Ox O2 Del Method 12/10/23 08:57 BiPAP 12/10/23 08:09 68 20 94 12/10/23 08:00 164/64 H 12/10/23 08:00 66 12/10/23 07:16 66 23 95 BiPAP 12/10/23 07:16 66 22 95 12/10/23 07:06 66 21 81 L 12/10/23 07:00 155/58 H 12/10/23 06:57 68 22 100 12/10/23 06:44 160/81 H 12/10/23 04:09 64 15 97 12/10/23 04:00 153/57 H 12/10/23 04:00 153/57 H 12/10/23 04:00 153/57 H 12/10/23 04:00 37.5 C 12/10/23 03:48 68 16 98 12/10/23 03:22 69 17 99 12/10/23 03:20 69 17 99 BiPAP 12/10/23 03:03 67 16 97 12/10/23 03:00 137/55 L 12/10/23 03:00 137/55 L 12/10/23 02:54 67 18 97 12/10/23 02:10 131/68 12/10/23 02:09 69 17 94 12/10/23 02:06 68 20 96 FiO2 12/10/23 08:57 40 12/10/23 08:09 12/10/23 08:00 12/10/23 08:00 12/10/23 07:16 40 12/10/23 07:16 40 12/10/23 07:06 12/10/23 07:00 12/10/23 06:57 12/10/23 06:44 12/10/23 04:09 40 12/10/23 04:00 12/10/23 04:00 12/10/23 04:00 12/10/23 04:00 12/10/23 03:48 12/10/23 03:22 40 12/10/23 03:20 40 12/10/23 03:03 40 12/10/23 03:00 12/10/23 03:00 12/10/23 02:54 12/10/23 02:10 12/10/23 02:09 12/10/23 02:06 40 Laboratory Results Bronch bx: FINAL DIAGNOSIS A. Lung, left upper lobe, "left upper lobe target #1" (biopsy): - Adenocarcinoma with micropapillary architecture is seen. - See comment. B. Lung, left upper lobe, "left upper lobe target #2" (biopsy): - Atypical epithelial cells are seen. - See comment. C. Lung, right lower lobe, "right lower lobe forceps and cryo-biopsy" (biopsy): - Adenocarcinoma with a solid growth pattern is seen. - See comment 12/10/23 12/10/23 12/09/23 Range/Units 05:15 00:48 20:09 WBC 10.06 (4.8-10.8) K/ul RBC 2.68 L (4.70-6.10) M/uL Hgb 7.8 L (14.0-18.0) g/dl POC Hgb (14.0-18.0) g/dl Hct 25.2 L (42.0-52.0) % POC Hct (42-52) % MCV 94.0 (80.0-100.0) fL MCH 29.1 (25.0-34.0) pg MCHC 31.0 L (32.0-36.0) g/dL RDW Std Deviation 53.1 H (36.4-46.3) fL RDW Coeff of Sushila 15.5 H (11.5-14.5) % Plt Count 243 (130-400) K/uL MPV 10.8 (9.4-12.4) fL Immature Gran % (Auto) 0.2 % Neut % (Auto) 68.4 % Lymph % (Auto) 19.9 % [place] % (Auto) 10.8 % Eos % (Auto) 0.6 % Baso % (Auto) 0.1 % Neut # (Auto) 6.88 H (1.40-6.50) K/uL Lymph # (Auto) 2.00 (1.20-3.40) K/uL [place] # (Auto) 1.09 H (0.11-0.59) K/uL Eos # (Auto) 0.06 (0.00-0.50) K/uL Baso # (Auto) 0.01 (0.00-0.20) K/uL Immature Gran # (Auto) 0.02 (0.01-0.20) K/uL Polychromasia 1+ Hypochromasia Stomatocytes PT (9.0-12.0) Seconds INR (0.9-1.1) APTT (21-31) Seconds PTT Ratio Specimen Type Sample Site POC pH (7.35-7.45) POC pCO2 (35-46) mmHg POC pO2 (80-95) mmHg POC HCO3 (19-24) yanely/L POC Base Excess (-9-1.8) yanely/L O2 Sat Pulse Oximetry ABG pH (Temp Correct) (7.35-7.45) ABG pCO2 (Temp Corrct (35-46) mmHg POC ABG pO2 at Pt Temp POC ABG O2 Sat (90-95) % Guicho Test VBG pH (7.36-7.41) VBG pCO2 (38-50) mmHg VBG pO2 mmHg VBG HCO3 mmol/L VBG O2 Saturation % VBG Base Excess mEq/L O2 Delivery Device Vent Mode POC FiO2 % End Tidal CO2 POC Sodium (135-144) mmol/L Sodium 142 (136-145) mmol/L POC Potassium (3.3-5.0) mmol/L Potassium 3.8 (3.5-5.1) mmol/L POC Chloride (101-112) mmol/L Chloride 97 L (98-107) mmol/L Carbon Dioxide 38 H (21-32) mmol/L POC Total CO2 (24-31) mmol/L Anion Gap 7 POC Anion Gap (16-25) mmol/L POC BUN (7-18) mg/dl BUN 23 (6-23) mg/dl Creatinine 0.96 (0.6-1.4) mg/dl POC Creatinine (0.6-1.3) mg/dl Est Cr Clr Drug Dosing 73.2 ml/min eGFR 87.17 BUN/Creatinine Ratio 24.0 H (10-20) Glucose 70 (70-99(Fasting)) mg/dl POC Glucose 90 85 (70-99) mg/dl POC Glucose (other) (70-99) mg/dl Calcium 9.0 (8.6-10.3) mg/dl POC Ioniz Calcium Leland (1.12-1.32) mmol/l Phosphorus 3.2 (2.5-4.9) mg/dl Magnesium 1.9 (1.7-2.4) mg/dl Total Bilirubin (0.2-1.0) mg/dl Direct Bilirubin (0-0.2) mg/dl AST (13-39) U/L ALT (7-52) U/L Alkaline Phosphatase (34-104) U/L Ammonia (18-72) umol/L Troponin I High Sens (0-20) pg/ml Total Protein (6.0-8.3) gm/dl Albumin (3.4-5.0) gm/dl Lipase (11-82) U/L Nasal Screen MRSA (PCR) (Negative) Ethyl Alcohol mg/dL (<10.0) mg/dl Crossmatch 12/09/23 12/09/23 12/09/23 Range/Units 11:09 10:10 07:56 WBC (4.8-10.8) K/ul RBC (4.70-6.10) M/uL Hgb (14.0-18.0) g/dl POC Hgb 8.2 L (14.0-18.0) g/dl Hct (42.0-52.0) % POC Hct 24 L (42-52) % MCV (80.0-100.0) fL MCH (25.0-34.0) pg MCHC (32.0-36.0) g/dL RDW Std Deviation (36.4-46.3) fL RDW Coeff of Sushila (11.5-14.5) % Plt Count (130-400) K/uL MPV (9.4-12.4) fL Immature Gran % (Auto) % Neut % (Auto) % Lymph % (Auto) % [place] % (Auto) % Eos % (Auto) % Baso % (Auto) % Neut # (Auto) (1.40-6.50) K/uL Lymph # (Auto) (1.20-3.40) K/uL [place] # (Auto) (0.11-0.59) K/uL Eos # (Auto) (0.00-0.50) K/uL Baso # (Auto) (0.00-0.20) K/uL Immature Gran # (Auto) (0.01-0.20) K/uL Polychromasia Hypochromasia Stomatocytes PT (9.0-12.0) Seconds INR (0.9-1.1) APTT (21-31) Seconds PTT Ratio Specimen Type Arterial Sample Site L Radial POC pH 7.44 (7.35-7.45) POC pCO2 61 H (35-46) mmHg POC pO2 72 L (80-95) mmHg POC HCO3 42 H (19-24) yanely/L POC Base Excess 18.0 H (-9-1.8) yanely/L O2 Sat Pulse Oximetry 95 ABG pH (Temp Correct) 7.444 (7.35-7.45) ABG pCO2 (Temp Corrct 61 H (35-46) mmHg POC ABG pO2 at Pt Temp 72 POC ABG O2 Sat 94.0 (90-95) % Guicho Test Pass VBG pH (7.36-7.41) VBG pCO2 (38-50) mmHg VBG pO2 mmHg VBG HCO3 mmol/L VBG O2 Saturation % VBG Base Excess mEq/L O2 Delivery Device Ventilator Vent Mode CPAP POC FiO2 40 % End Tidal CO2 40 POC Sodium 138 (135-144) mmol/L Sodium (136-145) mmol/L POC Potassium 4.2 (3.3-5.0) mmol/L Potassium (3.5-5.1) mmol/L POC Chloride (101-112) mmol/L Chloride (98-107) mmol/L Carbon Dioxide (21-32) mmol/L POC Total CO2 44 H* (24-31) mmol/L Anion Gap POC Anion Gap (16-25) mmol/L POC BUN (7-18) mg/dl BUN (6-23) mg/dl Creatinine (0.6-1.4) mg/dl POC Creatinine (0.6-1.3) mg/dl Est Cr Clr Drug Dosing ml/min eGFR BUN/Creatinine Ratio (10-20) Glucose (70-99(Fasting)) mg/dl POC Glucose 105 H 123 H (70-99) mg/dl POC Glucose (other) (70-99) mg/dl Calcium (8.6-10.3) mg/dl POC Ioniz Calcium Leland (1.12-1.32) mmol/l Phosphorus (2.5-4.9) mg/dl Magnesium (1.7-2.4) mg/dl Total Bilirubin (0.2-1.0) mg/dl Direct Bilirubin (0-0.2) mg/dl AST (13-39) U/L ALT (7-52) U/L Alkaline Phosphatase (34-104) U/L Ammonia (18-72) umol/L Troponin I High Sens (0-20) pg/ml Total Protein (6.0-8.3) gm/dl Albumin (3.4-5.0) gm/dl Lipase (11-82) U/L Nasal Screen MRSA (PCR) (Negative) Ethyl Alcohol mg/dL (<10.0) mg/dl Crossmatch 12/09/23 12/09/23 12/08/23 Range/Units 04:33 04:26 21:40 WBC 8.11 (4.8-10.8) K/ul RBC 2.21 L (4.70-6.10) M/uL Hgb 6.3 L* (14.0-18.0) g/dl POC Hgb 6.1 L* (14.0-18.0) g/dl Hct 21.5 L (42.0-52.0) % POC Hct 18 L* (42-52) % MCV 97.3 D (80.0-100.0) fL MCH 28.5 (25.0-34.0) pg MCHC 29.3 L (32.0-36.0) g/dL RDW Std Deviation 51.6 H (36.4-46.3) fL RDW Coeff of Sushila 14.7 H (11.5-14.5) % Plt Count 228 (130-400) K/uL MPV 11.1 (9.4-12.4) fL Immature Gran % (Auto) 0.4 % Neut % (Auto) 86.6 % Lymph % (Auto) 10.4 % [place] % (Auto) 2.5 % Eos % (Auto) 0.0 % Baso % (Auto) 0.1 % Neut # (Auto) 7.03 H (1.40-6.50) K/uL Lymph # (Auto) 0.84 L (1.20-3.40) K/uL [place] # (Auto) 0.20 (0.11-0.59) K/uL Eos # (Auto) 0.00 (0.00-0.50) K/uL Baso # (Auto) 0.01 (0.00-0.20) K/uL Immature Gran # (Auto) 0.03 (0.01-0.20) K/uL Polychromasia 1+ Hypochromasia Stomatocytes 2+ PT (9.0-12.0) Seconds INR (0.9-1.1) APTT (21-31) Seconds PTT Ratio Specimen Type Arterial Sample Site L Radial POC pH 7.53 H* (7.35-7.45) POC pCO2 51 H (35-46) mmHg POC pO2 56 L (80-95) mmHg POC HCO3 42 H (19-24) yanely/L POC Base Excess 19.0 H (-9-1.8) yanely/L O2 Sat Pulse Oximetry 92 ABG pH (Temp Correct) 7.513 H* (7.35-7.45) ABG pCO2 (Temp Corrct 53 H (35-46) mmHg POC ABG pO2 at Pt Temp 60 POC ABG O2 Sat 91.0 (90-95) % Guicho Test Pass VBG pH (7.36-7.41) VBG pCO2 (38-50) mmHg VBG pO2 mmHg VBG HCO3 mmol/L VBG O2 Saturation % VBG Base Excess mEq/L O2 Delivery Device Ventilator Vent Mode AC POC FiO2 40 % End Tidal CO2 34 POC Sodium 138 (135-144) mmol/L Sodium 142 (136-145) mmol/L POC Potassium 4.1 (3.3-5.0) mmol/L Potassium 4.4 (3.5-5.1) mmol/L POC Chloride (101-112) mmol/L Chloride 96 L (98-107) mmol/L Carbon Dioxide 41 H* (21-32) mmol/L POC Total CO2 44 H* (24-31) mmol/L Anion Gap 5 POC Anion Gap (16-25) mmol/L POC BUN (7-18) mg/dl BUN 25 H (6-23) mg/dl Creatinine 0.90 (0.6-1.4) mg/dl POC Creatinine (0.6-1.3) mg/dl Est Cr Clr Drug Dosing 78.1 ml/min eGFR 94.19 BUN/Creatinine Ratio 27.8 H (10-20) Glucose 111 H (70-99(Fasting)) mg/dl POC Glucose (70-99) mg/dl POC Glucose (other) (70-99) mg/dl Calcium 8.9 (8.6-10.3) mg/dl POC Ioniz Calcium Leland (1.12-1.32) mmol/l Phosphorus 2.8 (2.5-4.9) mg/dl Magnesium 2.0 (1.7-2.4) mg/dl Total Bilirubin (0.2-1.0) mg/dl Direct Bilirubin (0-0.2) mg/dl AST (13-39) U/L ALT (7-52) U/L Alkaline Phosphatase (34-104) U/L Ammonia (18-72) umol/L Troponin I High Sens 26.0 H 35.7 H (0-20) pg/ml Total Protein (6.0-8.3) gm/dl Albumin (3.4-5.0) gm/dl Lipase (11-82) U/L Nasal Screen MRSA (PCR) (Negative) Ethyl Alcohol mg/dL (<10.0) mg/dl Crossmatch 12/08/23 12/08/23 12/08/23 Range/Units 20:21 18:38 15:54 WBC (4.8-10.8) K/ul RBC (4.70-6.10) M/uL Hgb (14.0-18.0) g/dl POC Hgb (14.0-18.0) g/dl Hct (42.0-52.0) % POC Hct (42-52) % MCV (80.0-100.0) fL MCH (25.0-34.0) pg MCHC (32.0-36.0) g/dL RDW Std Deviation (36.4-46.3) fL RDW Coeff of Sushila (11.5-14.5) % Plt Count (130-400) K/uL MPV (9.4-12.4) fL Immature Gran % (Auto) % Neut % (Auto) % Lymph % (Auto) % [place] % (Auto) % Eos % (Auto) % Baso % (Auto) % Neut # (Auto) (1.40-6.50) K/uL Lymph # (Auto) (1.20-3.40) K/uL [place] # (Auto) (0.11-0.59) K/uL Eos # (Auto) (0.00-0.50) K/uL Baso # (Auto) (0.00-0.20) K/uL Immature Gran # (Auto) (0.01-0.20) K/uL Polychromasia Hypochromasia Stomatocytes PT (9.0-12.0) Seconds INR (0.9-1.1) APTT (21-31) Seconds PTT Ratio Specimen Type Sample Site POC pH (7.35-7.45) POC pCO2 (35-46) mmHg POC pO2 (80-95) mmHg POC HCO3 (19-24) yanely/L POC Base Excess (-9-1.8) yanely/L O2 Sat Pulse Oximetry ABG pH (Temp Correct) (7.35-7.45) ABG pCO2 (Temp Corrct (35-46) mmHg POC ABG pO2 at Pt Temp POC ABG O2 Sat (90-95) % Guicho Test VBG pH (7.36-7.41) VBG pCO2 (38-50) mmHg VBG pO2 mmHg VBG HCO3 mmol/L VBG O2 Saturation % VBG Base Excess mEq/L O2 Delivery Device Vent Mode POC FiO2 % End Tidal CO2 POC Sodium (135-144) mmol/L Sodium (136-145) mmol/L POC Potassium (3.3-5.0) mmol/L Potassium (3.5-5.1) mmol/L POC Chloride (101-112) mmol/L Chloride (98-107) mmol/L Carbon Dioxide (21-32) mmol/L POC Total CO2 (24-31) mmol/L Anion Gap POC Anion Gap (16-25) mmol/L POC BUN (7-18) mg/dl BUN (6-23) mg/dl Creatinine (0.6-1.4) mg/dl POC Creatinine (0.6-1.3) mg/dl Est Cr Clr Drug Dosing ml/min eGFR BUN/Creatinine Ratio (10-20) Glucose (70-99(Fasting)) mg/dl POC Glucose 128 H 124 H (70-99) mg/dl POC Glucose (other) (70-99) mg/dl Calcium (8.6-10.3) mg/dl POC Ioniz Calcium Leland (1.12-1.32) mmol/l Phosphorus (2.5-4.9) mg/dl Magnesium (1.7-2.4) mg/dl Total Bilirubin (0.2-1.0) mg/dl Direct Bilirubin (0-0.2) mg/dl AST (13-39) U/L ALT (7-52) U/L Alkaline Phosphatase (34-104) U/L Ammonia (18-72) umol/L Troponin I High Sens 39.1 H (0-20) pg/ml Total Protein (6.0-8.3) gm/dl Albumin (3.4-5.0) gm/dl Lipase (11-82) U/L Nasal Screen MRSA (PCR) (Negative) Ethyl Alcohol mg/dL (<10.0) mg/dl Crossmatch 12/08/23 12/08/23 12/08/23 Range/Units 14:18 13:24 11:58 WBC (4.8-10.8) K/ul RBC (4.70-6.10) M/uL Hgb (14.0-18.0) g/dl POC Hgb 7.1 L 7.8 L (14.0-18.0) g/dl Hct (42.0-52.0) % POC Hct 21 L 23 L (42-52) % MCV (80.0-100.0) fL MCH (25.0-34.0) pg MCHC (32.0-36.0) g/dL RDW Std Deviation (36.4-46.3) fL RDW Coeff of Sushila (11.5-14.5) % Plt Count (130-400) K/uL MPV (9.4-12.4) fL Immature Gran % (Auto) % Neut % (Auto) % Lymph % (Auto) % [place] % (Auto) % Eos % (Auto) % Baso % (Auto) % Neut # (Auto) (1.40-6.50) K/uL Lymph # (Auto) (1.20-3.40) K/uL [place] # (Auto) (0.11-0.59) K/uL Eos # (Auto) (0.00-0.50) K/uL Baso # (Auto) (0.00-0.20) K/uL Immature Gran # (Auto) (0.01-0.20) K/uL Polychromasia Hypochromasia Stomatocytes PT (9.0-12.0) Seconds INR (0.9-1.1) APTT (21-31) Seconds PTT Ratio Specimen Type Arterial Arterial Sample Site R Radial POC pH 7.39 7.21 L (7.35-7.45) POC pCO2 74 H 114 H (35-46) mmHg POC pO2 56 L 111 H (80-95) mmHg POC HCO3 45 H 46 H (19-24) yanely/L POC Base Excess 20.0 H 18.0 H (-9-1.8) yanely/L O2 Sat Pulse Oximetry 50 ABG pH (Temp Correct) 7.393 (7.35-7.45) ABG pCO2 (Temp Corrct 73 H (35-46) mmHg POC ABG pO2 at Pt Temp 56 POC ABG O2 Sat 87.0 L 96.0 H (90-95) % Guicho Test Pass VBG pH (7.36-7.41) VBG pCO2 (38-50) mmHg VBG pO2 mmHg VBG HCO3 mmol/L VBG O2 Saturation % VBG Base Excess mEq/L O2 Delivery Device Ventilator Vent Mode AC POC FiO2 50 % End Tidal CO2 56 POC Sodium 140 140 (135-144) mmol/L Sodium (136-145) mmol/L POC Potassium 4.4 4.3 (3.3-5.0) mmol/L Potassium (3.5-5.1) mmol/L POC Chloride (101-112) mmol/L Chloride (98-107) mmol/L Carbon Dioxide (21-32) mmol/L POC Total CO2 47 H* 49 H* (24-31) mmol/L Anion Gap POC Anion Gap (16-25) mmol/L POC BUN (7-18) mg/dl BUN (6-23) mg/dl Creatinine (0.6-1.4) mg/dl POC Creatinine (0.6-1.3) mg/dl Est Cr Clr Drug Dosing ml/min eGFR BUN/Creatinine Ratio (10-20) Glucose (70-99(Fasting)) mg/dl POC Glucose (70-99) mg/dl POC Glucose (other) (70-99) mg/dl Calcium (8.6-10.3) mg/dl POC Ioniz Calcium Leland (1.12-1.32) mmol/l Phosphorus (2.5-4.9) mg/dl Magnesium (1.7-2.4) mg/dl Total Bilirubin (0.2-1.0) mg/dl Direct Bilirubin (0-0.2) mg/dl AST (13-39) U/L ALT (7-52) U/L Alkaline Phosphatase (34-104) U/L Ammonia (18-72) umol/L Troponin I High Sens (0-20) pg/ml Total Protein (6.0-8.3) gm/dl Albumin (3.4-5.0) gm/dl Lipase (11-82) U/L Nasal Screen MRSA (PCR) Negative (Negative) Ethyl Alcohol mg/dL (<10.0) mg/dl Crossmatch 12/08/23 12/08/23 12/08/23 Range/Units 11:35 11:28 05:35 WBC 9.81 (4.8-10.8) K/ul RBC 2.66 L (4.70-6.10) M/uL Hgb 7.7 L (14.0-18.0) g/dl POC Hgb 8.2 L (14.0-18.0) g/dl Hct 27.3 L (42.0-52.0) % POC Hct 24 L (42-52) % MCV 102.6 H (80.0-100.0) fL MCH 28.9 (25.0-34.0) pg MCHC 28.2 L (32.0-36.0) g/dL RDW Std Deviation 54.5 H (36.4-46.3) fL RDW Coeff of Sushila 14.6 H (11.5-14.5) % Plt Count 237 (130-400) K/uL MPV 10.9 (9.4-12.4) fL Immature Gran % (Auto) 0.3 % Neut % (Auto) 75.6 % Lymph % (Auto) 13.3 % [place] % (Auto) 9.2 % Eos % (Auto) 1.3 % Baso % (Auto) 0.3 % Neut # (Auto) 7.42 H (1.40-6.50) K/uL Lymph # (Auto) 1.30 (1.20-3.40) K/uL [place] # (Auto) 0.90 H (0.11-0.59) K/uL Eos # (Auto) 0.13 (0.00-0.50) K/uL Baso # (Auto) 0.03 (0.00-0.20) K/uL Immature Gran # (Auto) 0.03 (0.01-0.20) K/uL Polychromasia 1+ Hypochromasia Present Stomatocytes 2+ PT 10.1 (9.0-12.0) Seconds INR 0.9 (0.9-1.1) APTT 25 (21-31) Seconds PTT Ratio 0.9 Specimen Type Sample Site POC pH (7.35-7.45) POC pCO2 (35-46) mmHg POC pO2 (80-95) mmHg POC HCO3 (19-24) yanely/L POC Base Excess (-9-1.8) yanely/L O2 Sat Pulse Oximetry ABG pH (Temp Correct) (7.35-7.45) ABG pCO2 (Temp Corrct (35-46) mmHg POC ABG pO2 at Pt Temp POC ABG O2 Sat (90-95) % Guicho Test VBG pH 7.27 L (7.36-7.41) VBG pCO2 103 H (38-50) mmHg VBG pO2 40 mmHg VBG HCO3 47 mmol/L VBG O2 Saturation 71.7 % VBG Base Excess 15.4 mEq/L O2 Delivery Device Vent Mode POC FiO2 % End Tidal CO2 POC Sodium 142 (135-144) mmol/L Sodium 143 (136-145) mmol/L POC Potassium 4.4 (3.3-5.0) mmol/L Potassium 4.5 (3.5-5.1) mmol/L POC Chloride 93 L (101-112) mmol/L Chloride 96 L (98-107) mmol/L Carbon Dioxide > 45 H* (21-32) mmol/L POC Total CO2 44 H* (24-31) mmol/L Anion Gap TNP POC Anion Gap 11.0 L (16-25) mmol/L POC BUN 15 (7-18) mg/dl BUN 15 (6-23) mg/dl Creatinine 0.82 (0.6-1.4) mg/dl POC Creatinine 1.0 (0.6-1.3) mg/dl Est Cr Clr Drug Dosing 85.7 ml/min eGFR 96.88 BUN/Creatinine Ratio 18.3 (10-20) Glucose 107 H (70-99(Fasting)) mg/dl POC Glucose (70-99) mg/dl POC Glucose (other) 107 H (70-99) mg/dl Calcium 9.6 (8.6-10.3) mg/dl POC Ioniz Calcium [place] 1.27 (1.12-1.32) mmol/l Phosphorus (2.5-4.9) mg/dl Magnesium 2.1 (1.7-2.4) mg/dl Total Bilirubin 0.4 (0.2-1.0) mg/dl Direct Bilirubin 0.1 (0-0.2) mg/dl AST 12 L (13-39) U/L ALT 10 (7-52) U/L Alkaline Phosphatase 123 H (34-104) U/L Ammonia 38.0 (18-72) umol/L Troponin I High Sens 40.7 H (0-20) pg/ml Total Protein 6.5 (6.0-8.3) gm/dl Albumin 3.7 (3.4-5.0) gm/dl Lipase 15 (11-82) U/L Nasal Screen MRSA (PCR) (Negative) Ethyl Alcohol mg/dL < 10.0 (<10.0) mg/dl Crossmatch See Detail Diagnostic Findings Chest X-Ray 12/08/23 11:22 XR chest 1V portable HISTORY: 68 years-old Male sob acute shortness of breath COMPARISON: Chest radiograph 12/08/2023, chest CT 12/07/2023 TECHNIQUE: AP view of the chest FINDINGS: Cardiac silhouette is enlarged. Pulmonary vascular congestion. No pneumothorax, pleural effusion or overt pulmonary edema. Emphysema with chronic interstitial coarsening. 2.7 cm right lower lobe lesion is partially obscured by mildly progressed right basilar consolidation. Ill-defined nodular foci of the upper lung zones again seen. Bones appear grossly intact. IMPRESSION: 1. Emphysema with reticulonodular opacities redemonstrated, likely infectious or inflammatory. 2. Right lower lobe lesion better seen on comparison chest CT. 3. Mild progressed right basilar consolidation. ACT 112: Negative or not required by law. The above report was generated using voice recognition software. It may contain grammatical, syntax or spelling errors. Electronically signed by: Roc Sequeira M.D. 12/08/2023 12:40 PM Pelvis X-Ray 12/08/23 11:22 XR pelvis 1-2V routine HISTORY: 68 years-old Male R hip pain acute pain of the right hip status post fall COMPARISON: Head CT 11/25/2023 TECHNIQUE: AP view of the pelvis FINDINGS: Moderate osteoarthritis of the hips. No acute fracture, dislocation, avascular necrosis or destructive bone lesion. Unremarkable soft tissues. IMPRESSION: No acute fracture. ACT 112: Negative or not required by law. The above report was generated using voice recognition software. It may contain grammatical, syntax or spelling errors. Electronically signed by: Roc Sequeira M.D. 12/08/2023 12:43 PM Chest X-Ray 12/08/23 12:16 XR chest 1V portable CLINICAL HISTORY: Endotracheal tube placement. COMPARISON STUDY: Chest CT December 07, 2023. Chest radiograph performed earlier today. FINDINGS: The tip of the endotracheal tube is 5 cm above the ortega. There is no pneumothorax or pleural effusion. Cardiomegaly is unchanged. There is pulmonary vascular congestion. Right lower lobe mass is better depicted on CT of December 07, 2023. Scattered irregular densities within the lungs persist. IMPRESSION: 1. Tip of endotracheal tube 5 cm above the ortega. 2. No pneumothorax. 3. Redemonstration of a right lower lobe mass and scattered irregular densities throughout the lungs. 3. Stable cardiomegaly. Pulmonary vascular congestion. ACT 112: Negative or not required by law. Electronically signed by: Justin Miller M.D. 12/08/2023 12:46 PM Chest X-Ray 12/09/23 07:00 XR chest 1V portable HISTORY: 68 years-old Male Resp failure acute respiratory failure COMPARISON: 12/08/2023 TECHNIQUE: AP view of the chest FINDINGS: Endotracheal tube overlies the midline, 4.7 cm superior to the ortega. Heart is enlarged. No pneumothorax or large pleural effusion. Mild cardiomegaly. Pulmonary vascular congestion. Ill-defined scattered bilateral pulmonary opacities are again noted which are most pronounced in the right lung base. IMPRESSION: 1. Distal tip of enteric tube overlies the midline, 4.7 cm superior to the ortega. 2. Right basilar predominant airspace opacities again noted. 3. No pneumothorax. ACT 112: Negative or not required by law. The above report was generated using voice recognition software. It may contain grammatical, syntax or spelling errors. Electronically signed by: Roc Sequeira M.D. 12/09/2023 7:56 AM PG Care Time/CCT Total # of Minutes Spent Total Time Spent with Patient: Total time spent is greater than 50% in coordination of care (as documented) at patient's floor/unit and/or counseling patient: I spent 90 minutes overall addressing this case: 15 min in medical data review/discussion with referring provider(s) and/or preparation for the visit 15 min in direct interaction with the patient/exam 30 min in Advance Care Planning/Goals of Care discussions as detailed above in note (must be >16min) 15 min in subsequent review and synthesis of assessment and plan 15 min communicating with other providers regarding the patient's case: primary, pulmonary, nursing Advanced Care Planning 92961 Advanced Care Planning 30 [place] [address] IN/OBS CONSULT LVL 4,60M (25 - SIGNIFICANT, SEPARATELY IDENTIFIABLE ) Patient Type New Medical Decision Making High Complexity Diagnoses Dyspnea and respiratory abnormalities R06.00; R06.89 Advanced care planning/counseling discussion Z71.89 Weakness generalized R53.1 Palliative care by specialist Z51.5 Adenocarcinoma of lung, stage 4 C34.90 Additional Codes Advanced Care Planning - 53872 Advanced Care Planning 30 Min: 84500 Advanced Care Planning 30 Min ([id number])
--- NOTE | 2023-12-10 23:36 | Electrocardiogram Report ---
Test Reason : Blood Pressure : */* mmHG Vent. Rate : 81 BPM Atrial Rate : 81 BPM P-R Int : 150 ms QRS Dur : 102 ms QT Int : 364 ms P-R-T Axes : 65 104 61 degrees QTcB Int : 422 ms Sinus rhythm with sinus arrhythmia with occasional Premature ventricular complexes Rightward axis Borderline ECG When compared with ECG of 11-Nov-2023 13:01, Premature ventricular complexes are now Present Premature atrial complexes are no longer Present Confirmed by Paul Andersen ([id number]) on 12/10/2023 11:35:48 PM Referred By: REFERRED SELF Confirmed By: Paul Andersen
--- NOTE | 2023-12-10 23:38 | Electrocardiogram Report ---
Test Reason : Blood Pressure : */* mmHG Vent. Rate : 69 BPM Atrial Rate : 69 BPM P-R Int : 152 ms QRS Dur : 94 ms QT Int : 398 ms P-R-T Axes : 40 151 35 degrees QTcB Int : 426 ms Sinus rhythm with occasional Premature ventricular complexes and Premature atrial complexes Right axis deviation Abnormal ECG When compared with ECG of 08-Dec-2023 15:54, Premature atrial complexes are now Present QRS axis Shifted right ST no longer elevated in Inferior leads Confirmed by Paul Andersen ([id number]) on 12/10/2023 11:38:07 PM Referred By: REFERRED SELF Confirmed By: Paul Andersen
--- NOTE | 2023-12-10 23:38 | Electrocardiogram Report ---
Test Reason : Blood Pressure : */* mmHG Vent. Rate : 78 BPM Atrial Rate : 78 BPM P-R Int : 132 ms QRS Dur : 86 ms QT Int : 362 ms P-R-T Axes : 72 97 67 degrees QTcB Int : 412 ms Sinus rhythm with frequent Premature ventricular complexes ST elevation, consider inferior injury pattern When compared with ECG of 08-Dec-2023 11:15, ST more elevated in Inferior leads Confirmed by Paul Andersen ([id number]) on 12/10/2023 11:37:37 PM Referred By: REFERRED SELF Confirmed By: Paul Andersen
[2023-12-11] MEDS ORDERED: predniSONE 20 MG TAB PO SCH (09:00)
[2023-12-11] MEDS: HYDROmorphone INJ 0.5 MG/0.5 ML SYR IV PRN (13:12)
[2023-12-11] MEDS: HYDROmorphone INJ 1 MG/ML SYRINGE IV PRN (15:54)
--- NOTE | 2023-12-11 17:28 | Hospitalist Progress Note ---
Date of Service December 11, 2023 Assessment & Plan (1) Acute exacerbation of chronic obstructive pulmonary disease: Plan: Required intubation for acute on chronic respiratory failure with hypoxia and hypercapnia s/p bronchoscopy for lung cancer Was given steroids but now discontinued on comfort measures Started on Zosyn for possible pneumonia which turned out to be atelectasis- resolved and discontinued antibiotics, now on comfort measures Extubated and placed on BiPAP on 12/08 and could not be weaned off BiPAP by 12/09. He was very anxious and was made comfort measures, given several doses of IV Ativan and is now comfortable on nasal cannula Now very comfortable receiving IV Ativan and IV Dilaudid on comfort measures only Convert to p.o. Roxanol and p.o. Ativan for symptoms and plan to discharge to home with hospice hopefully this weekend (2) Acute on chronic respiratory failure with hypoxia and hypercapnia: Plan: As above (3) Adenocarcinoma of lung, stage 4: Plan: Pathology confirms adenocarcinoma of lung mass in right lower lobe Patient with stage IV lung adenocarcinoma-he has opted for comfort measures only and would not be a good candidate for treatment at this point given functional status and poor respiratory status as per oncology and pulmonology (4) Macrocytic anemia: Plan: Severe anemia, hemoglobin 6.3-was given 1 unit PRBCs and hemoglobin improved to 7.8 B12 and folate low normal from previous admission-was receiving replacement orally as an outpatient No overt bleeding No need to follow CBC on comfort measures (5) Depression with anxiety: Plan: Lorazepam as needed Patient requests adding back on his home Seroquel 200 mg at bedtime (6) History of atrial fibrillation: Plan: None here thus far but this was diagnosed last admission but not placed on anticoagulation given severe anemia No need to follow on telemetry Plan VTE Prophylaxis -SCDs discontinued on comfort measures Disposition -continued stay on medical/surgical unit on comfort measures only. If stable enough, he would like to return home if possible this weekend with home hospice-I discussed this with case management Admission and Anticipated Discharge Date Admission Date: December 08, 2023 Subjective Patient comfortable and is able to eat solid foods. He would like to get home with hospice if possible. We will switch him to oral Roxanol and Ativan today and see if this helps his symptoms. He took IV Dilaudid for the first time today and reports it really helps his shortness of breath. He is requesting his Seroquel but he was supposed to reduce the dose to 200 mg at bedtime as per his discussion recently with his psychiatrist. Physical Exam Constitutional: no acute distress Respiratory: normal respiratory effort Cardiovascular: Heart Sounds: no murmur Psychiatric: Orientation: alert, oriented to person, oriented to place and cooperative Affect: euthymic affect Results & Data Results & Data Vital Signs (Past 12 Hours) Vital Signs Pulse Resp Pulse Ox O2 Del Method O2 Flow Rate 12/11/23 15:29 Nasal Cannula 4 12/11/23 13:26 58 L 16 98 Nasal Cannula 4 12/11/23 08:00 Nasal Cannula 4 12/11/23 07:22 68 16 98 Nasal Cannula 4 PG Care Time/CCT Total # of Minutes Spent Total Time Spent with Patient: Total time spent is greater than 50% in coordination of care (as documented) at patient's floor/unit and/or counseling patient: Coding Level of Care Code 62342 SUB INP/OBS CARE 03/12MIN Diagnoses Acute exacerbation of chronic obstructive pulmonary disease J44.1 Acute on chronic respiratory failure with hypoxia and hypercapnia J96.21; J96.22 Adenocarcinoma of lung, stage 4 C34.90 Macrocytic anemia D53.9 Depression with anxiety F41.8 History of atrial fibrillation Z86.79
[2023-12-11] MEDS: MoRPHine SULFATE 10 MG/0.5 ML UDP PO PRN (19:48)
[2023-12-11] MEDS: LORazepam 1 MG TAB PO PRN (19:57)
[2023-12-11] MEDS: QUEtiapine FUMARATE 200 MG TAB PO SCH (21:38)
[2023-12-12 07:43] VITALS: RESP 16
--- NOTE | 2023-12-12 11:18 | Discharge Summary ---
Discharge Summary Date of Service December 12, 2023 Principal Dx & Hospital Course #1 = Principal Diagnosis (1) Acute exacerbation of chronic obstructive pulmonary disease: Required intubation for acute on chronic respiratory failure with hypoxia and hypercapnia s/p bronchoscopy for lung cancer Was given steroids but now discontinued on comfort measures Started on Zosyn for possible pneumonia which turned out to be atelectasis- resolved and discontinued antibiotics, now on comfort measures Extubated and placed on BiPAP on 12/08 and could not be weaned off BiPAP by 12/09. He was very anxious and was made comfort measures, given several doses of IV Ativan and is now comfortable on nasal cannula Now very comfortable receiving IV Ativan and IV Dilaudid on comfort measures only-transitioned to po Roxanol and po ativan and all symptoms well controlled Continue p.o. Roxanol and p.o. Ativan for symptoms and plan to discharge to home with hospice today (2) Acute on chronic respiratory failure with hypoxia and hypercapnia: As above (3) Adenocarcinoma of lung, stage 4: Pathology confirms adenocarcinoma of lung mass in right lower lobe Patient with stage IV lung adenocarcinoma-he has opted for comfort measures only and would not be a good candidate for treatment at this point given functional status and poor respiratory status as per oncology and pulmonology (4) Macrocytic anemia: Severe anemia, hemoglobin 6.3-was given 1 unit PRBCs and hemoglobin improved to 7.8 B12 and folate low normal from previous admission-was receiving replacement orally as an outpatient No overt bleeding No need to follow CBC on comfort measures Can dc home po folate and B12 (5) Depression with anxiety: Lorazepam as needed Patient requests adding back on his home Seroquel 200 mg at bedtime (6) History of atrial fibrillation: None here thus far but this was diagnosed last admission but not placed on anticoagulation given severe anemia No need to follow on telemetry, no anticoag or rate control on discharge Plan VTE Prophylaxis -SCDs discontinued on comfort measures Disposition -dc to home with hospice-arrangements made through case briefer Notes For Next Care Provider Transitioned to hospice at home Medication Changes From Visit see list Admission HPI Per Admitting Provider Maxime Chamberlain is a 68 year old male who presents to the ER due to lethargy and fall following bronchoscopy earlier today. Unable to get any history from the patient as he is intubated and sedated at time of seeing. History obtained from ER provider, notes from pulmonology, anesthesiology and brother at bedside. He reportedly fell last night possibly tripping over his walker. Fall was unwitnessed as he lives alone. Unknown if loss of consciousness. CT head obtained prior to bronchoscopy which did not show intracranial hemorrhage. Brother noted he was lethargic and confused prior to bronchoscopy getting worse throughout the morning. He underwent bronchoscopy and was sent to the ER afterwards to have workup such has a hip XR to assess for fracture. In the ER he was noted to be confused and lethargic. ABG showed respiratory acidosis with acute on chronic hypercapnia. He did not improve on BiPAP and was subsequently intubated and referred to medicine for admission. He was noted to be very wheezy on exam and given Solu-medrol and an hour long duoneb. Discharge Exam Constitutional no acute distress Respiratory normal respiratory effort Auscultation: + wheezes Cardiovascular Rate/Rhythm: regular rate and regular rhythm Heart Sounds: no murmur Gastrointestinal (Abdomen) normal bowel sounds, soft, nontender, no hepatosplenomegaly Psychiatric Orientation: alert, oriented to person, oriented to place and cooperative Affect: euthymic affect Discharge Plan Discharge Items Patient Disposition: Hospice - Home Reason For Visit: ACUTE ON CHRONIC RESPIRATORY FAILURE WITH HYPOXIA Discharge Diagnosis: Stage IV lung cancer COPD Acute on chronic respiratory failure with hypoxemia and hypercapnia Condition on Discharge: Fair Activity: As commented below Lifting: None Bathing: No limitations Exercise/Sports: As tolerated Non-emergency contact: Primary Care Provider Call non-emergency contact if: you have any medication questions and your symptoms worsen Follow-up/Referrals: Ce Cano, [email or web address]. [Primary Care Provider] - (You do not need to follow- up with your primary care provider in the office once you are on hospice at home.) Diet: Regular Addtl Attending Provider Instructions: You can take Roxanol as needed for shortness of breath or pain. You can take Ativan as needed for anxiety or agitation. Please continue oxygen as needed for comfort. If you have any questions or needs, please contact your home hospice agency. Pending Studies at Discharge: No Stand-Alone Forms: [facility] Medications and DC Order Prescriptions: New morphine concentrate 100 mg/5 mL (20 mg/mL) Solution 5 mg PO Q1H PRN (Reason: shortness of breath or pain) Qty: 30 0RF Continued albuterol sulfate 90 mcg/actuation HFA aerosol inhaler 2 puff inhalation Q4H PRN (Reason: Shortness Of Breath Or Wheezing) nicotine 21 mg/24 hr Patch 24 Hour 1 patch TRANSDERMAL DAILY Rx Instructions: Last filled 11/06/23 x14 day supply docusate sodium 100 mg Capsule 100 mg PO DAILY PRN (Reason: Constipation) naloxone 4 mg/actuation [place],Non-Aerosol 4 mg INTRANASAL ONCE PRN (Reason: Opioid Overdose) Breztri Aerosphere 160-9-4.8 mcg/actuation Hfa Aerosol Inhaler 2 inh INHALATION BID albuterol sulfate 2.5 mg /3 mL (0.083 %) Solution For Nebulization 2.5 mg INHALATION QID PRN (Reason: Shortness Of Breath Or Wheezing) Eucerin Cream 1 applic TOPICAL BID PRN (Reason: Dry Skin) pantoprazole 40 mg tablet,delayed release (DR/EC) 40 mg PO DAILY Qty: 28 0RF ipratropium-albuterol 0.5 mg-3 mg(2.5 mg base)/3 mL Solution For Nebulization 3 ml NEB QID PRN (Reason: cough/wheeze/shortness of breath) Qty: 180 2RF (DME) Oxygen Home Liters Per Minute See Rx Instructions .ROUTE .MEDSUPPLY Qty: 1 0RF Rx Instructions: 4 liters NC O2 continuously. mupirocin 2 % ointment 1 applic topical BID PRN (Reason: nose bleed) Qty: 15 0RF Rx Instructions: apply in both nostrils x 7 days Changed lorazepam 1 mg Tablet 1 mg PO Q2H PRN (Reason: Anxiety/Agitation) Qty: 30 0RF quetiapine 400 mg Tablet 200 mg PO HS Qty: 15 0RF Rx Instructions: Listed as pending per [facility] pharmacy start date 12/04/23. Original Directions: 200mg by mouth nightly. Pt was recently given Quetiapine 100mg by mouth at bedtime but it was /discontinued on 11/21/23 Discontinued atorvastatin 20 mg Tablet 10 mg PO DAILY ascorbic acid (vitamin C) [Vitamin C] 500 mg Tablet 500 mg PO DAILY ergocalciferol (vitamin D2) [Vitamin D2] 1,250 mcg (50,000 unit) Capsule 1,250 mcg PO 2XWK Rx Instructions: Thursday/ Ensure Plus Liquid 1 ea PO BID ferrous sulfate 325 mg (65 mg iron) tablet 325 mg PO BID Rx Instructions: [id number] buspirone 15 mg Tablet 15 mg PO BID Rx Instructions: Last filled 05/08/23 x90 day supply per [facility] pharmacy. Original Directions: 15mg by mouth daily guaifenesin [Mucinex] 600 mg Tablet Extended Release 12hr 1,200 mg PO Q12 Qty: 15 0RF Rx Instructions: Unable to verify OTC meds at this date/time. folic acid 1 mg tablet 1 mg PO DAILY Qty: 30 0RF cyanocobalamin (vitamin B-12) 1,000 mcg tablet 1,000 mcg PO DAILY Qty: 30 5RF Rx Instructions: purchase [id number] Discharge Orders: Discharge Order (Routine); Ordered 12/12/23 Ordered By: Jelena Angeles Admission Data Admit Date/Time: 12/08/23 12:44 Attending Provider: Jelena Angeles Admit Provider: Errol Soares Primary Care Provider: Ce Cano Other Providers: [facility]; Errol Soares; Lucy Fox; [facility] Hospital Stay Data Consultations 12/08/23 12:34 ED Decision to Admit Stat 12/10/23 09:24 Consult Palliative Care Routine Pending Results Patient Have Any Pending Studies at Discharge: No Discharge Instructions Given to Patient (Per Discharging Provider) You can take Roxanol as needed for shortness of breath or pain. You can take Ativan as needed for anxiety or agitation. Please continue oxygen as needed for comfort. If you have any questions or needs, please contact your home hospice agency. Total Time Total Time Spent Total Time Spent (In Minutes): 35 min Total Time Includes: Examination of the Patient, Discharge Planning and Medication Reconciliation Coding Level of Care Code 58515 INP/OBS DISCH >30 MIN Diagnoses Acute exacerbation of chronic obstructive pulmonary disease J44.1 Acute on chronic respiratory failure with hypoxia and hypercapnia J96.21; J96.22 Adenocarcinoma of lung, stage 4 C34.90 Macrocytic anemia D53.9 Depression with anxiety F41.8 History of atrial fibrillation Z86.79
[2023-12-12 12:40] VITALS: PULSE 65; O2SAT 96
[2023-12-12 13:59] VITALS: BP 105/46
== END 2023-12-12 15:30 | disposition hospice, home (50) | DRG 208 ==
LOC: ED 11:08 → SUATTDRO 12:44 → 1E 12:44 → 3E 12-10 18:02
DX: Z66 Do not resuscitate; E87.29 Other acidosis; F41.9 Anxiety disorder, unspecified; R41.82 Altered mental status, unspecified; J44.1 Chronic obstructive pulmonary disease with (acute) exacerbation; W18.30XA Fall on same level, unspecified, initial encounter; Z51.5 Encounter for palliative care; C34.31 Malignant neoplasm of lower lobe, right bronchus or lung; I24.89 Other forms of acute ischemic heart disease; Z98.890 Other specified postprocedural states; E87.3 Alkalosis; J96.22 Acute and chronic respiratory failure with hypercapnia; D53.9 Nutritional anemia, unspecified; J98.11 Atelectasis; M25.551 Pain in right hip; J96.21 Acute and chronic respiratory failure with hypoxia; Y92.89 Other specified places as the place of occurrence of the external cause; I48.0 Paroxysmal atrial fibrillation; F17.210 Nicotine dependence, cigarettes, uncomplicated